=== PATIENT | male | born 1960 | race African-American/Black ===

== ENCOUNTER 2020-02-09 19:30 | Inpatient (IN) | payer MEDICAID ==
[~2020-02-09] VITALS: Ht 177.8 cm; Wt 80.5 kg
[2020-02-09] MEDS ORDERED: TYLENOL EXTRA500 MG ORAL (19:40)
[2020-02-09] MEDS ORDERED: VITAMIN B-1100 MG ORAL (19:42)
[2020-02-09] MEDS ORDERED: TRIUMEQ 600-501 EACH PO (19:42)
[2020-02-09] MEDS ORDERED: VITAMIN D3 COM1 EACH PO (19:42)
[2020-02-09] MEDS ORDERED: LISINOPRIL10 MG ORAL (19:42)
[2020-02-09] MEDS ORDERED: Omnipaque-300 100ml vial INJ PRN (20:00)
--- NOTE | 2020-02-09 20:13 | Emergency Room Report ---
History of Present Illness General Chief Complaint: Male Urogenital Problems Source: Patient Present Illness HPI Patient is a 59-year-old male who presents after increased left-sided testicular pain. Prior history of inguinal hernia. Had been having increased left-sided inguinal fullness. Had not been vomiting. Reportedly had been having some flatus. Prior history of HIV as well as traumatic injury to the extremities. He is currently at [facility]. Patient reportedly had negative coronavirus testing however roommate had tested positive at the facility. 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 COVID-19 Screening: Negative COVID-19 COVID-19 Testing Source: [facility] Patient History Past Medical History: see triage record Reviewed Nursing Documentation: PMH: Agreed; PSxH: Agreed Nursing Documentation-PMH Hx Hypertension: Yes Review of Systems All Other Systems: negative except mentioned in HPI Physical Exam Vital Signs Date Time Temp Pulse Resp B/P (MAP) Pulse Ox O2 Delivery O2 Flow Rate FiO2 02/09/20 19:33 97.9 83 16 132/70 (90) 97 Room Air Sp02 EP Interpretation: reviewed, normal General Appearance: normal inspection, well appearing, no apparent distress, alert, GCS 15 Head: atraumatic ENT: normal ENT inspection, hearing grossly normal, normal voice Neck: normal inspection, full range of motion, supple, no bony tend Respiratory: normal inspection, lungs clear, normal breath sounds, no respiratory distress, no retraction, no wheezing Cardiovascular #1: regular rate, rhythm, no edema Gastrointestinal: normal inspection, normal bowel sounds, non tender, soft, no guarding Genitourinary: no CVA tenderness, other - Large left inguinal defect with soft bowel Musculoskeletal: normal inspection, back normal, normal range of motion Neurologic: alert, responsive, speech normal, normal inspection Psychiatric: normal inspection, judgement/insight normal, mood/affect normal Medical Decision Making Diagnostic Impression: Primary Impression: Left inguinal hernia Additional Impressions: Common bile duct dilation Renal cyst Thickened small bowel ER Course Patient presented for Left testicular pain. Differential diagnosis include was not limited to contusion, Jose Luis's gangrene, cellulitis, incarcerated hernia among others. Because of complexity of patient's case laboratory tests and imaging studies were ordered. Patient was noted to have some prior history of left inguinal hernia. There does appear to be significant left-sided scrotal swelling. Fullness scrotal fullness with associated hernia. There is no evidence of induration or erythema. Patient has not been vomiting. CT imaging was ordered due to patient's hernia.Patient's CT imaging showed some indeterminate foci of attenuation in the liver, gallbladder is contracted, there appears to be wall thickening of the common bile duct that is indeterminate for malignancy or infection. Exophytic left renal cyst 7 cm there are segments of small bowel demonstrating at least mild wall thickening large left inguinal hernia with multiple loops of bowel as well as mesenteric vessels with no significant obstruction or evidence of strangulation. Patient was endorsed to Dr. Armas pending admission.Patient was discussed with covering physician for [facility] and patient will be admitted for further evaluation of common bile duct dilation as well as left inguinal hernia. Labs Test 02/09/20 20:10 White Blood Count 4.7 K/UL (4.8-10.8) Red Blood Count 3.82 M/UL (4.70-6.10) Hemoglobin 12.6 G/DL (14.2-18.0) Hematocrit 38.5 % (42.0-52.0) Mean Corpuscular Volume 101 FL (80-99) Mean Corpuscular Hemoglobin 32.9 PG (27.0-31.0) Mean Corpuscular Hemoglobin Concent 32.6 G/DL (32.0-36.0) Red Cell Distribution Width 13.4 % (11.6-14.8) Platelet Count 243 K/UL (150-450) Mean Platelet Volume 7.9 FL (6.5-10.1) Neutrophils (%) (Auto) 54.8 % (45.0-75.0) Lymphocytes (%) (Auto) 34.1 % (20.0-45.0) Monocytes (%) (Auto) 5.6 % (1.0-10.0) Eosinophils (%) (Auto) 4.0 % (0.0-3.0) Basophils (%) (Auto) 1.5 % (0.0-2.0) Prothrombin Time 11.2 SEC (9.30-11.50) Prothromb Time International Ratio 1.0 (0.9-1.1) Activated Partial Thromboplast Time 29 SEC (23-33) Sodium Level 140 MMOL/L (136-145) Potassium Level 4.1 MMOL/L (3.5-5.1) Chloride Level 102 MMOL/L (98-107) Carbon Dioxide Level 32 MMOL/L (21-32) Anion Gap 6 mmol/L (5-15) Blood Urea Nitrogen 18 mg/dL (7-18) Creatinine 1.3 MG/DL (0.55-1.30) Estimat Glomerular Filtration Rate > 60 mL/min (>60) Glucose Level 87 MG/DL (74-106) Calcium Level 9.2 MG/DL (8.5-10.1) Total Bilirubin 0.4 MG/DL (0.2-1.0) Aspartate Amino Transf (AST/SGOT) 14 U/L (15-37) Alanine Aminotransferase (ALT/SGPT) 17 U/L (12-78) Alkaline Phosphatase 98 U/L (46-116) Total Protein 7.8 G/DL (6.4-8.2) Albumin 3.7 G/DL (3.4-5.0) Globulin 4.1 g/dL Albumin/Globulin Ratio 0.9 (1.0-2.7) Lipase 89 U/L (73-393) Last Vital Signs Date Time Temp Pulse Resp B/P (MAP) Pulse Ox O2 Delivery O2 Flow Rate FiO2 02/09/20 19:33 97.9 83 16 132/70 (90) 97 Room Air Status: unchanged Disposition: ADMITTED INPATIENT Condition: Stable Tom Tapia MD Feb 09, 2020 20:13
[2020-02-09 20:17] VITALS: BP 132/70
[2020-02-09 20:48] LABS: ANION GAP 6 mmol/L (5-15); BLOOD UREA NITROGEN 18 mg/dL (7-18); CALCIUM 9.2 MG/DL (8.5-10.1); CARBON DIOXIDE 32 MMOL/L (21-32); CHLORIDE 102 MMOL/L (98-107); CREATININE 1.3 MG/DL (0.55-1.30); POTASSIUM 4.1 MMOL/L (3.5-5.1); SODIUM 140 MMOL/L (136-145)
[2020-02-09 20:49] LABS: BASOPHILS % (AUTO) 1.5 % (0.0-2.0); HEMATOCRIT 38.5 % (42.0-52.0); HEMOGLOBIN 12.6 G/DL (14.2-18.0); LYMPHOCYTES % (AUTO) 34.1 % (20.0-45.0); MEAN CORPUSCULAR VOLUME 101 FL (80-99); MONOCYTES % (AUTO) 5.6 % (1.0-10.0); NEUTROPHILS % (AUTO) 54.8 % (45.0-75.0); PLATELET COUNT 243 K/UL (150-450); RED BLOOD COUNT 3.82 M/UL (4.70-6.10); RED CELL DISTRIBUTION WIDTH 13.4 % (11.6-14.8); WHITE BLOOD COUNT 4.7 K/UL (4.8-10.8)
[2020-02-09 20:58] LABS: ALANINE AMINOTRANSFERASE 17 U/L (12-78); ALBUMIN 3.7 G/DL (3.4-5.0); ALBUMIN/GLOBULIN RATIO 0.9 (1.0-2.7); ALKALINE PHOSPHATASE 98 U/L (46-116); ASPARTATE AMINO TRANSFERASE 14 U/L (15-37); BILIRUBIN,TOTAL 0.4 MG/DL (0.2-1.0)
--- NOTE | 2020-02-09 21:40 | Diagnostic Imaging Report ---
EXAM: CT Abdomen and Pelvis With Intravenous Contrast CLINICAL HISTORY: ABD PAIN TECHNIQUE: Axial computed tomography images of the abdomen and pelvis with intravenous contrast. CTDI is 5 and 9 mGy and DLP is 284 and 151 mGy-cm. One or more of the following dose reduction techniques were used: automated exposure control, adjustment of the mA and/or kV according to patient size, use of iterative reconstruction technique. COMPARISON: No relevant prior studies available. FINDINGS: Artifacts: Motion degraded study. Lung bases: Unremarkable. No mass. No consolidation. ABDOMEN: Liver: Indeterminate at subcentimeter low attenuation foci in the liver parenchyma. Gallbladder and bile ducts: The gallbladder is contracted. Biliary ductal dilatation with the extrahepatic biliary tree measuring up to 7 mm. There appears to be wall thickening of the common bile duct that is indeterminate for malignancy or infection. No calcified stones. Pancreas: Unremarkable. No mass. No ductal dilation. Spleen: Unremarkable. No splenomegaly. Adrenals: Unremarkable. No mass. Kidneys and ureters: Very large partially exophytic anterior left renal cyst measuring up to 7.6 cm. No evidence of obstructive uropathy. Stomach and bowel: Negative for high-grade lower GI tract obstruction. There are segments of small bowel demonstrating at least a mild wall thickening. Negative for evidence of pneumatosis. There is a large left inguinal hernia extending into the scrotum containing multiple loops of bowel as well as mesenteric vessels. No significant obstruction secondary to the hernia. Currently no evidence of bowel strangulation. PELVIS: Appendix: No findings to suggest acute appendicitis. Bladder: Indeterminate moderate bladder wall thickening. Reproductive: Marked heterogeneous enlargement of the prostate gland indeterminate for malignancy and/or prostatitis. ABDOMEN and PELVIS: Intraperitoneal space: Unremarkable. No free air. No significant fluid collection. Bones/joints: No acute fracture. No dislocation. Soft tissues: See above. Vasculature: Unremarkable. No abdominal aortic aneurysm. Lymph nodes: Mild indeterminate retroperitoneal lymphadenopathy. Significant indeterminate bilateral inguinal lymphadenopathy. IMPRESSION: Biliary ductal dilatation with question of extrahepatic biliary tree wall thickening indeterminate for a distal obstructing lesion, neoplasm or cholangitis. Tiny nonspecific and indeterminate low attenuation foci in the liver parenchyma. Small bowel wall thickening is nonspecific but can be seen with infectious or inflammatory enteritis. Marked enlargement of the prostate gland that is significantly heterogeneous and indeterminate for malignancy and/or prostatitis. Nonspecific bladder wall thickening can be seen with infiltrative neoplastic, inflammatory or infectious etiologies. Large left inguinal hernia without evidence of bowel obstruction or strangulation. Indeterminate lymphadenopathy as above.
[2020-02-09 22:15] VITALS: BP 128/68
[2020-02-09] MEDS ORDERED: DiphenhydrAMINE 25mg Tab ORAL PRN (23:30)
[2020-02-09] MEDS ORDERED: Morphine Sulfate 4mg/ml Inj (IV USE ONLY) IVP PRN (23:30)
[2020-02-09] MEDS ORDERED: Miralax 17gm pkt ORAL PRN (23:30)
[2020-02-09] MEDS ORDERED: Milk of Magnesia 30ml Ud ORAL PRN (23:30)
[2020-02-09] MEDS ORDERED: Metoclopramide 10mg/2ml Inj IVP PRN (23:30)
[2020-02-09] MEDS ORDERED: Mylanta II UD 30ml ORAL PRN (23:30)
[2020-02-09] MEDS ORDERED: LORazepam Inj 2mg/ml 1ml IV PRN (23:30)
--- NOTE | 2020-02-09 23:31 | History & Physical ---
History and Physical History & Physicial 59 y/o HIV pos man who resides at a SNF ([facility]) presents to the ED with increasing L sided testicular pain, apparently reducible per ED physician, however CT A/P shows biliary duct dilatation and sb wall thickening, raising possibility of obstructive malignancy Biliary ductal dilatation with question of extrahepatic biliary tree wall thickening indeterminate for a distal obstructing lesion, neoplasm or cholangitis. Tiny nonspecific and indeterminate low attenuation foci in the liver parenchyma. Small bowel wall thickening is nonspecific but can be seen with infectious or inflammatory enteritis. Marked enlargement of the prostate gland that is significantly heterogeneous and indeterminate for malignancy and/or prostatitis. Nonspecific bladder wall thickening can be seen with infiltrative neoplastic, inflammatory or infectious etiologies. Large left inguinal hernia without evidence of bowel obstruction or strangulation. Indeterminate lymphadenopathy as above. Chart, labs, vitals reviewed and case d/w ED Physician. Will admit tonight for supportive care, NPO. Will also call Surgical (Cyndee) and GI (Cleo) consults. Pt is hemodynamically stable. Julio White MD Feb 09, 2020 23:31
[2020-02-10] VITALS: BP 135/85
[2020-02-10] MEDS: D5NS 1,000 ML IV SCH ×3 (01:24→20:27)
[2020-02-10] MEDS ORDERED: ACETAMINOPHEN325 M1 ORAL (03:27)
[2020-02-10 04:00] VITALS: BP 129/82
[2020-02-10] MEDS: Heparin 5000 units/ml inj SUBQ SCH ×3 (05:46→21:12)
[2020-02-10 07:28] LABS: BASOPHILS % (AUTO) 1.4 % (0.0-2.0); EOSINOPHILS % (AUTO) 4.9 % (0.0-3.0); HEMATOCRIT 35.8 % (42.0-52.0); HEMOGLOBIN 11.6 G/DL (14.2-18.0); LYMPHOCYTES % (AUTO) 48.3 % (20.0-45.0); MEAN CORPUSCULAR VOLUME 101 FL (80-99); MONOCYTES % (AUTO) 8.1 % (1.0-10.0); NEUTROPHILS % (AUTO) 37.3 % (45.0-75.0); PLATELET COUNT 191 K/UL (150-450); RED BLOOD COUNT 3.55 M/UL (4.70-6.10); RED CELL DISTRIBUTION WIDTH 12.5 % (11.6-14.8); WHITE BLOOD COUNT 3.9 K/UL (4.8-10.8)
[2020-02-10 07:55] LABS: ANION GAP 8 mmol/L (5-15); BLOOD UREA NITROGEN 14 mg/dL (7-18); CALCIUM 8.5 MG/DL (8.5-10.1); CARBON DIOXIDE 28 MMOL/L (21-32); CHLORIDE 103 MMOL/L (98-107); CREATININE 1.2 MG/DL (0.55-1.30); POTASSIUM 3.7 MMOL/L (3.5-5.1); SODIUM 139 MMOL/L (136-145)
[2020-02-10 08:05] VITALS: BP 122/71
[2020-02-10] MEDS: Thiamine 100mg tab ORAL SCH (08:34)
[2020-02-10] MEDS: Lisinopril 10mg tab ORAL SCH (08:34)
[2020-02-10] MEDS: Docusate 100mg cap ORAL SCH ×2 (08:34→21:05)
[2020-02-10] MEDS: Morphine Sulfate 2mg/ml Inj(IV/IM USE ONLY) IVP PRN ×2 (10:02→15:38)
--- NOTE | 2020-02-10 10:32 | History and Physical ---
History of Present Illness General Date patient seen: Feb 10, 2020 Reason for Hospitalization: Male Urogenital Problems Present Illness HPI Patient is a 59-year-old male SNF resident ([facility]) w/ MMP including Hx HIV on ART, HTN, L inguinal hernia who presented to the ED with left tisticular pain and increased left inguinal hernia fullness. Pt noted to have several concerning features on CT abd for possible malignancy. In the ED pt was found to be afebrile and HDS. Labs were unremarkable except for mild leukopenia and anemia. L inguinal hernia was reducible to some degree and non tender per ED. Pt has been stable overnight and this am. Awaiting evaluation by GI and G Surg consulted overnight. Allergies: Coded Allergies: No Known Allergies (Unverified , 02/09/20) COVID-19 Screening Contact w/high risk pt: Yes Recent Travel to affected area: No Experienced COVID-19 symptoms?: No Medication History Scheduled Lisinopril* (Lisinopril*), 10 MG ORAL DAILY, (Reported) Thiamine Hcl* (Vitamin B-1*), 100 MG ORAL DAILY, (Reported) Scheduled PRN Acetaminophen* (Acetaminophen 325MG Tablet*), 650 MG ORAL Q6H PRN for Mild Pain (Pain Scale 1-3), (Reported) Miscellaneous Medications Abacavir/Dolutegravir/Lamivudi (Triumeq 600-50-300 mg Tablet), 1 EACH PO, ( Reported) Mv-Mn/Iron/Fa/Herbal Cmplx#190 (Vitamin D3 Complete Caplet), 2 EACH PO, ( Reported) Discontinued Medications Acetaminophen* (Tylenol Extra Strength*), 500 MG ORAL Q6H PRN for Mild Pain/ Temp > 100.5, (Reported) Discontinued Reason: Prescription changed Patient History Healthcare decision maker Resuscitation status Advanced Directive on File Review of Systems ROS Narrative 12 pt ros neg except as above Physical Exam General Appearance: WD/WN, no apparent distress, alert HEENT: normocephalic, atraumatic, PERRL, EOMI, no JVD Neck: supple Respiratory/Chest: lungs clear, normal breath sounds, no respiratory distress, no accessory muscle use Cardiovascular/Chest: normal peripheral pulses, regular rhythm, no gallop/ murmur, no JVD Abdomen: normal bowel sounds, non tender, soft, no organomegaly Extremities: no edema, no cyanosis Neurologic: primary substance abuse counselor II-XII grossly normal, oriented x 3 Last 24 Hour Vital Signs Date Time Temp Pulse Resp B/P (MAP) Pulse Ox O2 Delivery O2 Flow Rate FiO2 02/10/20 08:42 Room Air 02/10/20 08:34 122/71 02/10/20 08:05 97.9 85 20 122/71 (88) 93 02/10/20 04:00 98.1 86 20 129/82 (98) 96 02/10/20 00:46 Room Air 02/10/20 00:10 98.0 82 18 124/72 100 02/10/20 00:00 98.9 82 20 135/85 (102) 96 02/09/20 22:15 98.6 78 16 128/68 97 Room Air 02/09/20 20:17 98.4 82 16 132/70 97 Room Air 02/09/20 19:33 97.9 83 16 132/70 (90) 97 Room Air Intake and Output 02/09/20 02/10/20 19:00 07:00 Intake Total 100 ml Balance 100 ml Intake IV Total 100 ml Laboratory Tests Test 02/09/20 20:10 02/10/20 04:10 White Blood Count 4.7 K/UL (4.8-10.8) L 3.9 K/UL (4.8-10.8) L Red Blood Count 3.82 M/UL (4.70-6.10) L 3.55 M/UL (4.70-6.10) L Hemoglobin 12.6 G/DL (14.2-18.0) L 11.6 G/DL (14.2-18.0) L Hematocrit 38.5 % (42.0-52.0) L 35.8 % (42.0-52.0) L Mean Corpuscular Volume 101 FL (80-99) H 101 FL (80-99) H Mean Corpuscular Hemoglobin 32.9 PG (27.0-31.0) H 32.8 PG (27.0-31.0) H Mean Corpuscular Hemoglobin Concent 32.6 G/DL (32.0-36.0) 32.5 G/DL (32.0-36.0) Red Cell Distribution Width 13.4 % (11.6-14.8) 12.5 % (11.6-14.8) Platelet Count 243 K/UL (150-450) 191 K/UL (150-450) Mean Platelet Volume 7.9 FL (6.5-10.1) 6.8 FL (6.5-10.1) Neutrophils (%) (Auto) 54.8 % (45.0-75.0) 37.3 % (45.0-75.0) L Lymphocytes (%) (Auto) 34.1 % (20.0-45.0) 48.3 % (20.0-45.0) H Monocytes (%) (Auto) 5.6 % (1.0-10.0) 8.1 % (1.0-10.0) Eosinophils (%) (Auto) 4.0 % (0.0-3.0) H 4.9 % (0.0-3.0) H Basophils (%) (Auto) 1.5 % (0.0-2.0) 1.4 % (0.0-2.0) Prothrombin Time 11.2 SEC (9.30-11.50) Prothromb Time International Ratio 1.0 (0.9-1.1) Activated Partial Thromboplast Time 29 SEC (23-33) Sodium Level 140 MMOL/L (136-145) 139 MMOL/L (136-145) Potassium Level 4.1 MMOL/L (3.5-5.1) 3.7 MMOL/L (3.5-5.1) Chloride Level 102 MMOL/L (98-107) 103 MMOL/L (98-107) Carbon Dioxide Level 32 MMOL/L (21-32) 28 MMOL/L (21-32) Anion Gap 6 mmol/L (5-15) 8 mmol/L (5-15) Blood Urea Nitrogen 18 mg/dL (7-18) 14 mg/dL (7-18) Creatinine 1.3 MG/DL (0.55-1.30) 1.2 MG/DL (0.55-1.30) Estimat Glomerular Filtration Rate > 60 mL/min (>60) > 60 mL/min (>60) Glucose Level 87 MG/DL (74-106) 79 MG/DL (74-106) Calcium Level 9.2 MG/DL (8.5-10.1) 8.5 MG/DL (8.5-10.1) Total Bilirubin 0.4 MG/DL (0.2-1.0) Aspartate Amino Transf (AST/SGOT) 14 U/L (15-37) L Alanine Aminotransferase (ALT/SGPT) 17 U/L (12-78) Alkaline Phosphatase 98 U/L (46-116) Total Protein 7.8 G/DL (6.4-8.2) Albumin 3.7 G/DL (3.4-5.0) Globulin 4.1 g/dL Albumin/Globulin Ratio 0.9 (1.0-2.7) L Lipase 89 U/L (73-393) Magnesium Level 1.8 MG/DL (1.8-2.4) Height (Feet): 5 Height (Inches): 10.00 Weight (Pounds): 83 Medications Current Medications Medications (Trade) Dose Ordered Sig/Jimmy Route PRN Reason Start Time Stop Time Status Last Admin Dose Admin Acetaminophen (Tylenol) 650 mg Q4H PRN ORAL Mild Pain (Pain Scale 1-3) 02/09/20 23:30 03/10/20 23:29 Acetaminophen (Tylenol) 650 mg Q4H PRN ORAL Temp >100.5 02/09/20 23:30 03/10/20 23:29 Al Hydroxide/Mg Hydroxide (Mylanta II) 30 ml Q6H PRN ORAL dyspepsia 02/09/20 23:30 03/10/20 23:29 Bisacodyl (Dulcolax) 10 mg HSPRN PRN RECTAL Constipation 02/09/20 23:30 05/09/20 23:29 Dextrose (Dextrose 50%) 25 ml Q30M PRN IV Hypoglycemia 02/09/20 23:30 05/09/20 23:29 Dextrose (Dextrose 50%) 50 ml Q30M PRN IV Hypoglycemia 02/09/20 23:30 05/09/20 23:29 Dextrose/Sodium Chloride 1,000 ml @ 100 mls/hr Q10H IV 02/10/20 00:24 03/11/20 00:23 02/10/20 10:01 Diphenhydramine HCl (Benadryl) 25 mg Q6H PRN ORAL Itching/Pruritis 02/09/20 23:30 03/10/20 23:29 Docusate Sodium (Colace) 100 mg EVERY 12 HOURS ORAL 02/10/20 09:00 03/11/20 08:59 02/10/20 08:34 Heparin Sodium (Porcine) (Heparin 5000 units/ml) 5,000 units EVERY 8 HOURS SUBQ 02/10/20 06:00 03/26/20 05:59 02/10/20 05:46 Iohexol (OMNIPAQUE-300 100ml) 100 ml NOW PRN INJ Radiology Procedure 02/09/20 20:00 02/11/20 19:53 Lisinopril (ZestriL) 10 mg DAILY ORAL 02/10/20 09:00 03/11/20 08:59 02/10/20 08:34 Lorazepam (Ativan 2mg/ml 1ml) 0.5 mg Q4H PRN IV For Anxiety 02/09/20 23:30 02/16/20 23:29 Magnesium Hydroxide (Mom) 30 ml HSPRN PRN ORAL Constipation 02/09/20 23:30 03/10/20 23:29 Metoclopramide HCl (Reglan) 10 mg Q6H PRN IVP Nausea & Vomiting 02/09/20 23:30 03/10/20 23:29 Morphine Sulfate (Morphine Sulfate) 2 mg Q4H PRN IVP Moderate Pain (Pain Scale 4-6) 02/09/20 23:30 02/16/20 23:29 02/10/20 10:02 Morphine Sulfate (Morphine Sulfate) 4 mg Q4H PRN IVP Severe Pain (Pain Scale 7-10) 02/09/20 23:30 02/16/20 23:29 Ondansetron HCl (Zofran) 4 mg Q6H PRN IVP Nausea & Vomiting 02/09/20 23:30 03/10/20 23:29 Polyethylene Glycol (Miralax) 17 gm HSPRN PRN ORAL Constipation 02/09/20 23:30 03/10/20 23:29 Temazepam (Restoril) 15 mg HSPRN PRN ORAL Insomnia 02/09/20 23:30 02/16/20 23:29 Thiamine HCl (Vitamin B1) 100 mg DAILY ORAL 02/10/20 09:00 03/11/20 08:59 02/10/20 08:[address] abd/p 02/08: IMPRESSION: Biliary ductal dilatation with question of extrahepatic biliary tree wall thickening indeterminate for a distal obstructing lesion, neoplasm or cholangitis. Tiny nonspecific and indeterminate low attenuation foci in the liver parenchyma. Small bowel wall thickening is nonspecific but can be seen with infectious or inflammatory enteritis. Marked enlargement of the prostate gland that is significantly heterogeneous and indeterminate for malignancy and/or prostatitis. Nonspecific bladder wall thickening can be seen with infiltrative neoplastic, inflammatory or infectious etiologies. Large left inguinal hernia without evidence of bowel obstruction or strangulation. Indeterminate lymphadenopathy as above. Assessment/Plan Assessment/Plan: Patient is a 59-year-old male SNF resident ([facility]) w/ MMP including Hx HIV on ART, HTN, L inguinal hernia who presented to the ED with left tisticular pain and increased left inguinal hernia fullness. Pt noted to have several concerning features on CT abd for possible malignancy. #Left Testicular pain #Extra hepatic bili duct dilation #Enlarged, heterogeneic Prostate #Bladder wall thickening #Small bowel wall thickening - admit to in pt - hold off on abx for now as pt seems non toxic - General surgery consult - GI consult - Heme onc consult, Dr Jimenez - PSA, CEA, CA 19-9 - Start 2g Na diet - Pain control - Supportive care #Left inguinal hernia - general surgery consult #HIV on art #HTN - ID consult for assessment and mgt of HIV regimen, Dr Kim - send CD4 & VL FENPPX DVTPPX: scds GI PPX: Fluids: Diet: 2g na Lines: PT/OT: Code status: full Dispo: SNF ([facility]) Reason for Continued Hospitalization: Workup and mgt of possible malignancy 70 minutes spent on this encounter. Discussed with RN at bedside and consultants named above. 35 spent on counseling and care coordination. Time of note may not reflect time patient was seen. Steven Aj MD Feb 10, 2020 10:32
[2020-02-10 12:00] VITALS: BP_SYST 130; BP_SYST 158; BP_DIAS 73; BP_DIAS 86
--- NOTE | 2020-02-10 12:26 | Infectious Diseases Prog Note ---
Assessment/Plan Assessment/Plan Full consult dictated: A) 1) hiv 2) ? cd4/viral load 3) hernia 4) dilated biliary ducts P) 1) Triumeq - individual components available per pharmacy 2) check cd4/viral load 3) continue mgt per primary and consultants 4) thank you Subjective Allergies: Coded Allergies: No Known Allergies (Unverified , 02/09/20) Objective Vital Signs Last 24 Hour Vital Signs Date Time Temp Pulse Resp B/P (MAP) Pulse Ox O2 Delivery O2 Flow Rate FiO2 02/10/20 08:42 Room Air 02/10/20 08:34 122/71 02/10/20 08:05 97.9 85 20 122/71 (88) 93 02/10/20 04:00 98.1 86 20 129/82 (98) 96 02/10/20 00:46 Room Air 02/10/20 00:10 98.0 82 18 124/72 100 02/10/20 00:00 98.9 82 20 135/85 (102) 96 02/09/20 22:15 98.6 78 16 128/68 97 Room Air 02/09/20 20:17 98.4 82 16 132/70 97 Room Air 02/09/20 19:33 97.9 83 16 132/70 (90) 97 Room Air Height (Feet): 5 Height (Inches): 10.00 Weight (Pounds): 83 Laboratory Tests Test 02/09/20 20:10 02/10/20 04:10 White Blood Count 4.7 K/UL (4.8-10.8) L 3.9 K/UL (4.8-10.8) L Red Blood Count 3.82 M/UL (4.70-6.10) L 3.55 M/UL (4.70-6.10) L Hemoglobin 12.6 G/DL (14.2-18.0) L 11.6 G/DL (14.2-18.0) L Hematocrit 38.5 % (42.0-52.0) L 35.8 % (42.0-52.0) L Mean Corpuscular Volume 101 FL (80-99) H 101 FL (80-99) H Mean Corpuscular Hemoglobin 32.9 PG (27.0-31.0) H 32.8 PG (27.0-31.0) H Mean Corpuscular Hemoglobin Concent 32.6 G/DL (32.0-36.0) 32.5 G/DL (32.0-36.0) Red Cell Distribution Width 13.4 % (11.6-14.8) 12.5 % (11.6-14.8) Platelet Count 243 K/UL (150-450) 191 K/UL (150-450) Mean Platelet Volume 7.9 FL (6.5-10.1) 6.8 FL (6.5-10.1) Neutrophils (%) (Auto) 54.8 % (45.0-75.0) 37.3 % (45.0-75.0) L Lymphocytes (%) (Auto) 34.1 % (20.0-45.0) 48.3 % (20.0-45.0) H Monocytes (%) (Auto) 5.6 % (1.0-10.0) 8.1 % (1.0-10.0) Eosinophils (%) (Auto) 4.0 % (0.0-3.0) H 4.9 % (0.0-3.0) H Basophils (%) (Auto) 1.5 % (0.0-2.0) 1.4 % (0.0-2.0) Prothrombin Time 11.2 SEC (9.30-11.50) Prothromb Time International Ratio 1.0 (0.9-1.1) Activated Partial Thromboplast Time 29 SEC (23-33) Sodium Level 140 MMOL/L (136-145) 139 MMOL/L (136-145) Potassium Level 4.1 MMOL/L (3.5-5.1) 3.7 MMOL/L (3.5-5.1) Chloride Level 102 MMOL/L (98-107) 103 MMOL/L (98-107) Carbon Dioxide Level 32 MMOL/L (21-32) 28 MMOL/L (21-32) Anion Gap 6 mmol/L (5-15) 8 mmol/L (5-15) Blood Urea Nitrogen 18 mg/dL (7-18) 14 mg/dL (7-18) Creatinine 1.3 MG/DL (0.55-1.30) 1.2 MG/DL (0.55-1.30) Estimat Glomerular Filtration Rate > 60 mL/min (>60) > 60 mL/min (>60) Glucose Level 87 MG/DL (74-106) 79 MG/DL (74-106) Calcium Level 9.2 MG/DL (8.5-10.1) 8.5 MG/DL (8.5-10.1) Total Bilirubin 0.4 MG/DL (0.2-1.0) Aspartate Amino Transf (AST/SGOT) 14 U/L (15-37) L Alanine Aminotransferase (ALT/SGPT) 17 U/L (12-78) Alkaline Phosphatase 98 U/L (46-116) Total Protein 7.8 G/DL (6.4-8.2) Albumin 3.7 G/DL (3.4-5.0) Globulin 4.1 g/dL Albumin/Globulin Ratio 0.9 (1.0-2.7) L Lipase 89 U/L (73-393) Magnesium Level 1.8 MG/DL (1.8-2.4) Current Medications Medications (Trade) Dose Ordered Sig/Jimmy Route PRN Reason Start Time Stop Time Status Last Admin Dose Admin Acetaminophen (Tylenol) 650 mg Q4H PRN ORAL Mild Pain (Pain Scale 1-3) 02/09/20 23:30 03/10/20 23:29 Acetaminophen (Tylenol) 650 mg Q4H PRN ORAL Temp >100.5 02/09/20 23:30 03/10/20 23:29 Al Hydroxide/Mg Hydroxide (Mylanta II) 30 ml Q6H PRN ORAL dyspepsia 02/09/20 23:30 03/10/20 23:29 Bisacodyl (Dulcolax) 10 mg HSPRN PRN RECTAL Constipation 02/09/20 23:30 05/09/20 23:29 Dextrose (Dextrose 50%) 25 ml Q30M PRN IV Hypoglycemia 02/09/20 23:30 05/09/20 23:29 Dextrose (Dextrose 50%) 50 ml Q30M PRN IV Hypoglycemia 02/09/20 23:30 05/09/20 23:29 Dextrose/Sodium Chloride 1,000 ml @ 100 mls/hr Q10H IV 02/10/20 00:24 03/11/20 00:23 02/10/20 10:01 Diphenhydramine HCl (Benadryl) 25 mg Q6H PRN ORAL Itching/Pruritis 02/09/20 23:30 03/10/20 23:29 Docusate Sodium (Colace) 100 mg EVERY 12 HOURS ORAL 02/10/20 09:00 03/11/20 08:59 02/10/20 08:34 Heparin Sodium (Porcine) (Heparin 5000 units/ml) 5,000 units EVERY 8 HOURS SUBQ 02/10/20 06:00 03/26/20 05:59 02/10/20 05:46 Iohexol (OMNIPAQUE-300 100ml) 100 ml NOW PRN INJ Radiology Procedure 02/09/20 20:00 02/11/20 19:53 Lisinopril (ZestriL) 10 mg DAILY ORAL 02/10/20 09:00 03/11/20 08:59 02/10/20 08:34 Lorazepam (Ativan 2mg/ml 1ml) 0.5 mg Q4H PRN IV For Anxiety 02/09/20 23:30 02/16/20 23:29 Magnesium Hydroxide (Mom) 30 ml HSPRN PRN ORAL Constipation 02/09/20 23:30 03/10/20 23:29 Metoclopramide HCl (Reglan) 10 mg Q6H PRN IVP Nausea & Vomiting 02/09/20 23:30 03/10/20 23:29 Morphine Sulfate (Morphine Sulfate) 2 mg Q4H PRN IVP Moderate Pain (Pain Scale 4-6) 02/09/20 23:30 02/16/20 23:29 02/10/20 10:02 Morphine Sulfate (Morphine Sulfate) 4 mg Q4H PRN IVP Severe Pain (Pain Scale 7-10) 02/09/20 23:30 02/16/20 23:29 Ondansetron HCl (Zofran) 4 mg Q6H PRN IVP Nausea & Vomiting 02/09/20 23:30 03/10/20 23:29 Polyethylene Glycol (Miralax) 17 gm HSPRN PRN ORAL Constipation 02/09/20 23:30 03/10/20 23:29 Temazepam (Restoril) 15 mg HSPRN PRN ORAL Insomnia 02/09/20 23:30 02/16/20 23:29 Thiamine HCl (Vitamin B1) 100 mg DAILY ORAL 02/10/20 09:00 03/11/20 08:59 02/10/20 08:34 Mindy Sanchez MD Feb 10, 2020 12:26
[2020-02-10] MEDS: Dolutegravir Sodium 50mg tab ORAL SCH (15:33)
[2020-02-10 15:43] VITALS: BP 124/89
--- NOTE | 2020-02-10 16:42 | Consultation ---
History of Present Illness General Date patient seen: Feb 10, 2020 Reason for Hospitalization: Male Urogenital Problems Present Illness HPI This is a pleasant 59-year-old male with multi-medical comorbidities including HIV on medication who presented [facility] complaining of worsening left-sided testicular groin pain. Patient states known history of hernia for significant time but cannot recall how many years but states over the past few days become larger and uncomfortable on the left side. No nausea vomiting fever chills. Passing flatus. Having bowel movements. Has considered repair of the hernia before but felt it was small and did not need repair but now is getting better is considering repair. Imaging reviewed. Surgery called to evaluate and assist with care. Patient seen, patient evaluated, chart reviewed Allergies: Coded Allergies: No Known Allergies (Unverified , 02/09/20) COVID-19 Screening Contact w/high risk pt: Yes Recent Travel to affected area: No Experienced COVID-19 symptoms?: No Medication History Scheduled Lisinopril* (Lisinopril*), 10 MG ORAL DAILY, (Reported) Thiamine Hcl* (Vitamin B-1*), 100 MG ORAL DAILY, (Reported) Scheduled PRN Acetaminophen* (Acetaminophen 325MG Tablet*), 650 MG ORAL Q6H PRN for Mild Pain (Pain Scale 1-3), (Reported) Miscellaneous Medications Abacavir/Dolutegravir/Lamivudi (Triumeq 600-50-300 mg Tablet), 1 EACH PO, ( Reported) Mv-Mn/Iron/Fa/Herbal Cmplx#190 (Vitamin D3 Complete Caplet), 2 EACH PO, ( Reported) Discontinued Medications Acetaminophen* (Tylenol Extra Strength*), 500 MG ORAL Q6H PRN for Mild Pain/ Temp > 100.5, (Reported) Discontinued Reason: Prescription changed Patient History History Provided By: Patient, Medical Record, PMD Healthcare decision maker Resuscitation status Advanced Directive on File Past Medical/Surgical History Past Medical/Surgical History: (1) Renal cyst (2) Left inguinal hernia (3) Thickened small bowel (4) Common bile duct dilation Review of Systems Review of Symptoms General ROS: no weight loss or fever Psychological ROS: no depression or mood changes, no memory loss Ophthalmic ROS: no visual changes or eye irritation ENT ROS: no nasal congestion, hearing loss, dizziness Allergy and Immunology ROS: no allergic symptoms or urticaria Hematological and Lymphatic ROS: no swollen glands, unusual bleeding or bruising Endocrine ROS: no polyuria, polydipsia, weight changes, temperature intolerance Respiratory ROS: no cough, shortness of breath, or wheezing Cardiovascular ROS: no chest pain or dyspnea on exertion Gastrointestinal ROS: denies abdominal pain, bright red blood in stool. Musculoskeletal ROS: no myalgias or arthralgias Neurological ROS: no TIA or stroke symptoms Dermatological ROS: no new or changing skin lesions, rashes or pruritis Physical Exam Physical Exam General appearance: alert, cooperative, no distress, appears stated age Head: Normocephalic, without obvious abnormality, atraumatic Eyes: conjunctivae/corneas clear. PERRL, EOM's intact. Fundi benign Throat: Lips, mucosa, and tongue normal. Teeth and gums normal Neck: supple, symmetrical, trachea midline, no adenopathy, thyroid: not enlarged, symmetric, no tenderness/mass/nodules, no carotid bruit and no JVD Lungs: clear to auscultation bilaterally Heart: regular rate and rhythm, S1, S2 normal, no murmur, click, rub or gallop Abdomen: soft, non-tender. Bowel sounds normal. No masses, no organomegaly reducible scrotal left inguinal hernia Extremities: extremities normal, atraumatic, no cyanosis or edema Pulses: 2+ and symmetric Skin: Skin color, texture, turgor normal. No rashes or lesions Neurologic: Grossly normal Last 24 Hour Vital Signs Date Time Temp Pulse Resp B/P (MAP) Pulse Ox O2 Delivery O2 Flow Rate FiO2 02/10/20 15:43 97.5 85 20 124/89 (101) 98 02/10/20 12:00 98.8 81 20 130/86 (101) 96 02/10/20 08:42 Room Air 02/10/20 08:34 122/71 02/10/20 08:05 97.9 85 20 122/71 (88) 93 02/10/20 04:00 98.1 86 20 129/82 (98) 96 02/10/20 00:46 Room Air 02/10/20 00:10 98.0 82 18 124/72 100 02/10/20 00:00 98.9 82 20 135/85 (102) 96 02/09/20 22:15 98.6 78 16 128/68 97 Room Air 02/09/20 20:17 98.4 82 16 132/70 97 Room Air 02/09/20 19:33 97.9 83 16 132/70 (90) 97 Room Air Intake and Output 02/09/20 02/10/20 19:00 07:00 Intake Total 100 ml Balance 100 ml IV Total 100 ml Laboratory Tests Test 02/09/20 20:10 02/10/20 04:10 02/10/20 13:49 White Blood Count 4.7 K/UL (4.8-10.8) L 3.9 K/UL (4.8-10.8) L Pending Red Blood Count 3.82 M/UL (4.70-6.10) L 3.55 M/UL (4.70-6.10) L Hemoglobin 12.6 G/DL (14.2-18.0) L 11.6 G/DL (14.2-18.0) L Hematocrit 38.5 % (42.0-52.0) L 35.8 % (42.0-52.0) L Mean Corpuscular Volume 101 FL (80-99) H 101 FL (80-99) H Mean Corpuscular Hemoglobin 32.9 PG (27.0-31.0) H 32.8 PG (27.0-31.0) H Mean Corpuscular Hemoglobin Concent 32.6 G/DL (32.0-36.0) 32.5 G/DL (32.0-36.0) Red Cell Distribution Width 13.4 % (11.6-14.8) 12.5 % (11.6-14.8) Platelet Count 243 K/UL (150-450) 191 K/UL (150-450) Mean Platelet Volume 7.9 FL (6.5-10.1) 6.8 FL (6.5-10.1) Neutrophils (%) (Auto) 54.8 % (45.0-75.0) 37.3 % (45.0-75.0) L Lymphocytes (%) (Auto) 34.1 % (20.0-45.0) 48.3 % (20.0-45.0) H Monocytes (%) (Auto) 5.6 % (1.0-10.0) 8.1 % (1.0-10.0) Eosinophils (%) (Auto) 4.0 % (0.0-3.0) H 4.9 % (0.0-3.0) H Basophils (%) (Auto) 1.5 % (0.0-2.0) 1.4 % (0.0-2.0) Prothrombin Time 11.2 SEC (9.30-11.50) Prothromb Time International Ratio 1.0 (0.9-1.1) Activated Partial Thromboplast Time 29 SEC (23-33) Sodium Level 140 MMOL/L (136-145) 139 MMOL/L (136-145) Potassium Level 4.1 MMOL/L (3.5-5.1) 3.7 MMOL/L (3.5-5.1) Chloride Level 102 MMOL/L (98-107) 103 MMOL/L (98-107) Carbon Dioxide Level 32 MMOL/L (21-32) 28 MMOL/L (21-32) Anion Gap 6 mmol/L (5-15) 8 mmol/L (5-15) Blood Urea Nitrogen 18 mg/dL (7-18) 14 mg/dL (7-18) Creatinine 1.3 MG/DL (0.55-1.30) 1.2 MG/DL (0.55-1.30) Estimat Glomerular Filtration Rate > 60 mL/min (>60) > 60 mL/min (>60) Glucose Level 87 MG/DL (74-106) 79 MG/DL (74-106) Calcium Level 9.2 MG/DL (8.5-10.1) 8.5 MG/DL (8.5-10.1) Total Bilirubin 0.4 MG/DL (0.2-1.0) Aspartate Amino Transf (AST/SGOT) 14 U/L (15-37) L Alanine Aminotransferase (ALT/SGPT) 17 U/L (12-78) Alkaline Phosphatase 98 U/L (46-116) Total Protein 7.8 G/DL (6.4-8.2) Albumin 3.7 G/DL (3.4-5.0) Globulin 4.1 g/dL Albumin/Globulin Ratio 0.9 (1.0-2.7) L Lipase 89 U/L (73-393) Magnesium Level 1.8 MG/DL (1.8-2.4) Lymphocytes Pending Carcinoembryonic Antigen Pending CA 19-9 Antigen Pending Prostate Specific Antigen 8.23 ng/mL (0.13-4.0) H Free Prostate Specific Antigen Pending Percent Free Prostate Specific Ag Pending Prostate Specific Antigen Total Pending Percent CD3 Cells Pending Absolute CD3 Count Pending Percent CD4 Cells Pending Absolute CD4 Count Pending T-Lymphocyte CD4/CD8 Ratio Pending Percent CD8 Cells Pending Absolute CD8 Count Pending Rapid Plasma Reagin Pending HIV-1 RNA (PCR) log10 Value Pending HIV-1 RNA Ultraquantitative (PCR) Pending Height (Feet): 5 Height (Inches): 10.00 Weight (Pounds): 83 Medications Current Medications Medications (Trade) Dose Ordered Sig/Jimmy Route PRN Reason Start Time Stop Time Status Last Admin Dose Admin Abacavir Sulfate (Ziagen) 600 mg DAILY ORAL 02/10/20 15:00 03/11/20 14:59 02/10/20 15:33 Acetaminophen (Tylenol) 650 mg Q4H PRN ORAL Mild Pain (Pain Scale 1-3) 02/09/20 23:30 03/10/20 23:29 Acetaminophen (Tylenol) 650 mg Q4H PRN ORAL Temp >100.5 02/09/20 23:30 03/10/20 23:29 Al Hydroxide/Mg Hydroxide (Mylanta II) 30 ml Q6H PRN ORAL dyspepsia 02/09/20 23:30 03/10/20 23:29 Bisacodyl (Dulcolax) 10 mg HSPRN PRN RECTAL Constipation 02/09/20 23:30 05/09/20 23:29 Dextrose (Dextrose 50%) 25 ml Q30M PRN IV Hypoglycemia 02/09/20 23:30 05/09/20 23:29 Dextrose (Dextrose 50%) 50 ml Q30M PRN IV Hypoglycemia 02/09/20 23:30 05/09/20 23:29 Dextrose/Sodium Chloride 1,000 ml @ 100 mls/hr Q10H IV 02/10/20 00:24 03/11/20 00:23 02/10/20 10:01 Diphenhydramine HCl (Benadryl) 25 mg Q6H PRN ORAL Itching/Pruritis 02/09/20 23:30 03/10/20 23:29 Docusate Sodium (Colace) 100 mg EVERY 12 HOURS ORAL 02/10/20 09:00 03/11/20 08:59 02/10/20 08:34 Dolutegravir Sodium (Tivicay) 50 mg DAILY ORAL 02/10/20 15:00 05/10/20 14:59 02/10/20 15:33 Heparin Sodium (Porcine) (Heparin 5000 units/ml) 5,000 units EVERY 8 HOURS SUBQ 02/10/20 06:00 03/26/20 05:59 02/10/20 13:29 Iohexol (OMNIPAQUE-300 100ml) 100 ml NOW PRN INJ Radiology Procedure 02/09/20 20:00 02/11/20 19:53 Lamivudine (Epivir) 300 mg DAILY ORAL 02/10/20 15:00 03/11/20 14:59 02/10/20 15:33 Lisinopril (ZestriL) 10 mg DAILY ORAL 02/10/20 09:00 03/11/20 08:59 02/10/20 08:34 Lorazepam (Ativan 2mg/ml 1ml) 0.5 mg Q4H PRN IV For Anxiety 02/09/20 23:30 02/16/20 23:29 Magnesium Hydroxide (Mom) 30 ml HSPRN PRN ORAL Constipation 02/09/20 23:30 03/10/20 23:29 Metoclopramide HCl (Reglan) 10 mg Q6H PRN IVP Nausea & Vomiting 02/09/20 23:30 03/10/20 23:29 Morphine Sulfate (Morphine Sulfate) 2 mg Q4H PRN IVP Moderate Pain (Pain Scale 4-6) 02/09/20 23:30 02/16/20 23:29 02/10/20 15:38 Morphine Sulfate (Morphine Sulfate) 4 mg Q4H PRN IVP Severe Pain (Pain Scale 7-10) 02/09/20 23:30 02/16/20 23:29 Ondansetron HCl (Zofran) 4 mg Q6H PRN IVP Nausea & Vomiting 02/09/20 23:30 03/10/20 23:29 Polyethylene Glycol (Miralax) 17 gm HSPRN PRN ORAL Constipation 02/09/20 23:30 03/10/20 23:29 Temazepam (Restoril) 15 mg HSPRN PRN ORAL Insomnia 02/09/20 23:30 02/16/20 23:29 Thiamine HCl (Vitamin B1) 100 mg DAILY ORAL 02/10/20 09:00 03/11/20 08:59 02/10/20 08:34 Assessment/Plan Problem List: (1) Renal cyst ICD Codes: N28.1 - Cyst of kidney, acquired SNOMED: 917542988 (2) Left inguinal hernia Assessment & Plan: Patient with a large reducible scrotal left inguinal hernia. No signs or symptoms of obstructive symptoms. Not incarcerated not strangulated by any means I was able to easily reduce the hernia at the bedside without complication. Identified findings with the patient discussed at bedside. I strongly recommend patient follow-up immediately upon outpatient with his PCP followed by surgeon within his network for considerations of elective left inguinal hernia repair as it currently still reducible non-complicated. I sized him that there is a potential given the size of this thing will become more symptomatic larger or more complicated in the future and the sooner he gets repaired the better. He expressed understanding and says now that it is bigger he will seek repair. ABDOMEN: Liver: Indeterminate at subcentimeter low attenuation foci in the liver parenchyma. Gallbladder and bile ducts: The gallbladder is contracted. Biliary ductal dilatation with the extrahepatic biliary tree measuring up to 7 mm. There appears to be wall thickening of the common bile duct that is indeterminate for malignancy or infection. No calcified stones. Pancreas: Unremarkable. No mass. No ductal dilation. Spleen: Unremarkable. No splenomegaly. Adrenals: Unremarkable. No mass. Kidneys and ureters: Very large partially exophytic anterior left renal cyst measuring up to 7.6 cm. No evidence of obstructive uropathy. Stomach and bowel: Negative for high-grade lower GI tract obstruction. There are segments of small bowel demonstrating at least a mild wall thickening. Negative for evidence of pneumatosis. There is a large left inguinal hernia extending into the scrotum containing multiple loops of bowel as well as mesenteric vessels. No significant obstruction secondary to the hernia. Currently no evidence of bowel strangulation. PELVIS: Appendix: No findings to suggest acute appendicitis. Bladder: Indeterminate moderate bladder wall thickening. Reproductive: Marked heterogeneous enlargement of the prostate gland indeterminate for malignancy and/or prostatitis. ABDOMEN and PELVIS: Intraperitoneal space: Unremarkable. No free air. No significant fluid collection. Bones/joints: No acute fracture. No dislocation. Soft tissues: See above. Vasculature: Unremarkable. No abdominal aortic aneurysm. Lymph nodes: Mild indeterminate retroperitoneal lymphadenopathy. Significant indeterminate bilateral inguinal lymphadenopathy. IMPRESSION: Biliary ductal dilatation with question of extrahepatic biliary tree wall thickening indeterminate for a distal obstructing lesion, neoplasm or cholangitis. Tiny nonspecific and indeterminate low attenuation foci in the liver parenchyma. Small bowel wall thickening is nonspecific but can be seen with infectious or inflammatory enteritis. Marked enlargement of the prostate gland that is significantly heterogeneous and indeterminate for malignancy and/or prostatitis. Nonspecific bladder wall thickening can be seen with infiltrative neoplastic, inflammatory or infectious etiologies. Large left inguinal hernia without evidence of bowel obstruction or strangulation. Indeterminate lymphadenopathy as above. ICD Codes: K40.90 - Unilateral inguinal hernia, without obstruction or gangrene , not specified as recurrent SNOMED: 943827852 (3) Thickened small bowel ICD Codes: K63.9 - Disease of intestine, unspecified SNOMED: 172442005 (4) Common bile duct dilation Assessment & Plan: discussed with GI appreciate input labs noted imaging reviewed ICD Codes: K83.8 - Other specified diseases of biliary tract SNOMED: 539130756 Adan Cotter Feb 10, 2020 16:42
--- NOTE | 2020-02-10 16:54 | General Progress Note ---
Assessment/Plan Assessment/Plan: Assessment - (L) inguinal hernia - borderline biliary dilation / thickening with normal LFT, ? significance - ill defined small bowel changes without associated symptoms, ? significance - enlarged prostate with elevated PSA Recommendations - check MRCP of biliary tree - check MRE of small bowel - general surgery eval of inguinal hernia - eventual / outpatient colonoscopy (has not had one) - check stool OB Thank you Jojo Hunter MD Subjective Allergies: Coded Allergies: No Known Allergies (Unverified , 02/09/20) Objective Last 24 Hour Vital Signs Date Time Temp Pulse Resp B/P (MAP) Pulse Ox O2 Delivery O2 Flow Rate FiO2 02/10/20 15:43 97.5 85 20 124/89 (101) 98 02/10/20 12:00 98.8 81 20 130/86 (101) 96 02/10/20 08:42 Room Air 02/10/20 08:34 122/71 02/10/20 08:05 97.9 85 20 122/71 (88) 93 02/10/20 04:00 98.1 86 20 129/82 (98) 96 02/10/20 00:46 Room Air 02/10/20 00:10 98.0 82 18 124/72 100 02/10/20 00:00 98.9 82 20 135/85 (102) 96 02/09/20 22:15 98.6 78 16 128/68 97 Room Air 02/09/20 20:17 98.4 82 16 132/70 97 Room Air 02/09/20 19:33 97.9 83 16 132/70 (90) 97 Room Air Intake and Output 02/09/20 02/10/20 19:00 07:00 Intake Total 100 ml Balance 100 ml IV Total 100 ml Laboratory Tests 02/09/20 20:10: White Blood Count 4.7L, Red Blood Count 3.82L, Hemoglobin 12.6L, Hematocrit 38.5L, Mean Corpuscular Volume 101H, Mean Corpuscular Hemoglobin 32.9H, Mean Corpuscular Hemoglobin Concent 32.6, Red Cell Distribution Width 13.4, Platelet Count 243, Mean Platelet Volume 7.9, Neutrophils (%) (Auto) 54.8, Lymphocytes (% ) (Auto) 34.1, Monocytes (%) (Auto) 5.6, Eosinophils (%) (Auto) 4.0H, Basophils (%) (Auto) 1.5, Prothrombin Time 11.2, Prothromb Time International Ratio 1.0, Activated Partial Thromboplast Time 29, Sodium Level 140, Potassium Level 4.1, Chloride Level 102, Carbon Dioxide Level 32, Anion Gap 6, Blood Urea Nitrogen 18 , Creatinine 1.3, Estimat Glomerular Filtration Rate > 60, Glucose Level 87, Calcium Level 9.2, Total Bilirubin 0.4, Aspartate Amino Transf (AST/SGOT) 14L, Alanine Aminotransferase (ALT/SGPT) 17, Alkaline Phosphatase 98, Total Protein 7.8, Albumin 3.7, Globulin 4.1, Albumin/Globulin Ratio 0.9L, Lipase 89 02/10/20 04:10: White Blood Count 3.9L, Red Blood Count 3.55L, Hemoglobin 11.6L, Hematocrit 35.8L, Mean Corpuscular Volume 101H, Mean Corpuscular Hemoglobin 32.8H, Mean Corpuscular Hemoglobin Concent 32.5, Red Cell Distribution Width 12.5, Platelet Count 191, Mean Platelet Volume 6.8, Neutrophils (%) (Auto) 37.3L, Lymphocytes ( %) (Auto) 48.3H, Monocytes (%) (Auto) 8.1, Eosinophils (%) (Auto) 4.9H, Basophils (%) (Auto) 1.4, Sodium Level 139, Potassium Level 3.7, Chloride Level 103, Carbon Dioxide Level 28, Anion Gap 8, Blood Urea Nitrogen 14, Creatinine 1.2, Estimat Glomerular Filtration Rate > 60, Glucose Level 79, Calcium Level 8.5, Magnesium Level 1.8 02/10/20 13:49: White Blood Count [Pending], Lymphocytes [Pending], Carcinoembryonic Antigen [ Pending], CA 19-9 Antigen [Pending], Prostate Specific Antigen 8.23H, Free Prostate Specific Antigen [Pending], Percent Free Prostate Specific Ag [Pending] , Prostate Specific Antigen Total [Pending], Percent CD3 Cells [Pending], Absolute CD3 Count [Pending], Percent CD4 Cells [Pending], Absolute CD4 Count [ Pending], T-Lymphocyte CD4/CD8 Ratio [Pending], Percent CD8 Cells [Pending], Absolute CD8 Count [Pending], Rapid Plasma Reagin [Pending], HIV-1 RNA (PCR) log10 Value [Pending], HIV-1 RNA Ultraquantitative (PCR) [Pending] Height (Feet): 5 Height (Inches): 10.00 Weight (Pounds): 83 Jojo Hunter MD Feb 10, 2020 16:54
[2020-02-10 20:00] VITALS: BP 136/83
[2020-02-11] VITALS (7 sets, daily range): BP systolic 115–143; BP diastolic 54–115
--- NOTE | 2020-02-11 02:00 | Consultation ---
DATE OF CONSULTATION: 02/10/2020 GASTROENTEROLOGY CONSULTATION CONSULTING PHYSICIAN: Jojo Hunter M.D. CHIEF COMPLAINT: I was asked to see this patient by Dr. Steven Aj for evaluation of abnormal imaging results. HISTORY OF PRESENT ILLNESS: The patient is a 59-year-old man with multiple medical problems who comes in due to partially incarcerated left inguinal hernia. The inguinal hernia has been since reduced by 2 physicians and he feels better. He had a CT scan of the abdomen and pelvis, which showed a mildly dilated biliary tree with some biliary sickness. There was, however, no discrete obstruction identified. There is also some degree of small bowel thickening of unclear etiology. The patient denies any abdominal pain, nausea, vomiting, or diarrhea. He has not had a colonoscopy until this dates. His liver tests are normal. He has been seen by General Surgery. His prostate appeared to be heterogeneous and enlarged and he has an elevated PSA. PAST MEDICAL HISTORY: History of HIV, left inguinal hernia, and hypertension. MEDICATIONS: Outpatient medications, lisinopril. FAMILY HISTORY: Noncontributory. SOCIAL HISTORY: The patient has one child and has a girlfriend. He does not smoke or drink. REVIEW OF SYSTEMS: Otherwise negative. PHYSICAL EXAMINATION: GENERAL: This is a pleasant man, seen in his room. HEENT: Normocephalic and atraumatic. Sclerae anicteric. Oropharynx clear. NECK: Supple. LUNGS: Clear to auscultation. CARDIOVASCULAR: Revealed regular rate. ABDOMEN: Soft, nontender. Good bowel sounds. There is a left inguinal and scrotal hernia. EXTREMITIES: Revealed no edema. LABORATORY DATA: Noted. ASSESSMENT: This patient presented with left inguinal and scrotal hernia, which has been reduced and now has a benign appearance. Management of that has been addressed separately by the surgical staff. The patient has borderline evaluation of the left common bile duct on the CT as well as some thickening. However, his liver tests are normal and he is asymptomatic. The significance of this finding is, therefore, unclear. I would check his MRI with an MRCP protocol to check the biliary tree closely. At the same time, the patient also has some reported small bowel thickening of again unclear significance. MR enterography to examine the same time as an MRCP to evaluate the small bowel without any definitive other findings or symptoms with significant of these findings are unclear, but they should be worked up. The patient does have an unusually large prostate with elevated PSA. Urology consultation should be considered. RECOMMENDATIONS: Per above discussion and per orders written in the chart. Thank you for asking me to participate in the care of this patient. Jojo Hunter M.D. DR: JODI JOB#: [id number] CC:
[2020-02-11] MEDS: Heparin 5000 units/ml inj SUBQ SCH ×3 (06:13→21:25)
[2020-02-11 06:24] LABS: EOSINOPHILS % (AUTO) 5.5 % (0.0-3.0); HEMATOCRIT 33.8 % (42.0-52.0); HEMOGLOBIN 10.9 G/DL (14.2-18.0); LYMPHOCYTES % (AUTO) 48.3 % (20.0-45.0); MEAN CORPUSCULAR VOLUME 102 FL (80-99); MONOCYTES % (AUTO) 6.7 % (1.0-10.0); NEUTROPHILS % (AUTO) 37.6 % (45.0-75.0); PLATELET COUNT 208 K/UL (150-450); RED BLOOD COUNT 3.33 M/UL (4.70-6.10); RED CELL DISTRIBUTION WIDTH 12.6 % (11.6-14.8); WHITE BLOOD COUNT 3.9 K/UL (4.8-10.8)
[2020-02-11] MEDS: D5NS 1,000 ML IV SCH ×2 (06:24→16:26)
[2020-02-11 07:01] LABS: ALANINE AMINOTRANSFERASE 13 U/L (12-78); ALBUMIN 3.1 G/DL (3.4-5.0); ALBUMIN/GLOBULIN RATIO 0.9 (1.0-2.7); ALKALINE PHOSPHATASE 78 U/L (46-116); ANION GAP 5 mmol/L (5-15); ASPARTATE AMINO TRANSFERASE 17 U/L (15-37); BILIRUBIN,TOTAL 0.2 MG/DL (0.2-1.0); BLOOD UREA NITROGEN 14 mg/dL (7-18); CALCIUM 8.4 MG/DL (8.5-10.1); CARBON DIOXIDE 30 MMOL/L (21-32); CHLORIDE 105 MMOL/L (98-107); CREATININE 1.3 MG/DL (0.55-1.30); SODIUM 140 MMOL/L (136-145)
[2020-02-11] MEDS: Docusate 100mg cap ORAL SCH ×2 (08:31→21:25)
[2020-02-11] MEDS: Lisinopril 10mg tab ORAL SCH (08:31)
[2020-02-11] MEDS: Thiamine 100mg tab ORAL SCH (08:31)
[2020-02-11] MEDS: Dolutegravir Sodium 50mg tab ORAL SCH (08:32)
--- NOTE | 2020-02-11 12:34 | General Progress Note ---
Assessment/Plan Assessment/Plan: Patient is a 59-year-old male SN[facility] resident ([facility]) w/ MMP including Hx HIV on ART, HTN, L inguinal hernia who presented to the ED with left tisticular pain and increased left inguinal hernia fullness. Pt noted to have several concerning features on CT abd for possible malignancy. #Left Testicular pain #Extra hepatic bili duct dilation #Enlarged, heterogeneic Prostate #Bladder wall thickening #Small bowel wall thickening - admit to in pt - hold off on abx for now as pt seems non toxic - General surgery consult - GI consult- MRCP and MRE ordered tro further eval delia lesley dilatation - Heme onc consult, Dr Jimenez - PSA elevated, f/u [facility], CA 19-9 - Start 2g Na diet - Pain control - Supportive care #Left inguinal hernia - general surgery consult- appreciate recs, stable for outpt followup, easily reducible #HIV on art #HTN - ID consult for assessment and mgt of HIV regimen, Dr Kim - send CD4 & VL FENPPX DVTPPX: scds GI PPX: Fluids: Diet: 2g na Lines: PT/OT: Code status: full Dispo: SNF ([facility]) Reason for Continued Hospitalization: Workup and mgt of possible malignancy 35 minutes spent on this encounter. Discussed with RN at bedside and consultants named above. Time of note may not reflect time patient was seen. Subjective Date patient seen: Feb 11, 2020 Time patient seen: 12:32 ROS Limited/Unobtainable: No Allergies: Coded Allergies: No Known Allergies (Unverified , 02/09/20) Subjective No complaints today, would like to shower, just had a BM, reports it was normal looking. Denied any cp/sob/n/v/abd pain or change in bowel habits Objective Last 24 Hour Vital Signs Date Time Temp Pulse Resp B/P (MAP) Pulse Ox O2 Delivery O2 Flow Rate FiO2 02/11/20 09:00 Room Air 02/11/20 08:31 133/78 02/11/20 08:00 98.3 78 19 133/78 (96) 95 02/11/20 04:00 97.9 84 17 135/115 (122) 97 02/11/20 00:00 98.8 89 18 115/54 (74) 98 02/10/20 21:00 Room Air 6/20/20 20:00 99.0 77 17 136/83 (100) 97 02/10/20 15:43 97.5 85 20 124/89 (101) 98 Intake and Output 02/10/20 02/11/20 19:00 07:00 Intake Total 2110 ml 1100 ml Output Total 1200 ml 500 ml Balance 910 ml 600 ml Intake Oral 1010 ml IV Total 1100 ml 1100 ml Output Urine Total 1200 ml 500 ml Laboratory Tests 02/10/20 13:49: White Blood Count [Pending], Lymphocytes [Pending], Carcinoembryonic Antigen 2.3 , CA 19-9 Antigen [Pending], Prostate Specific Antigen 8.23H, Free Prostate Specific Antigen 1.66, Percent Free Prostate Specific Ag 19.5, Prostate Specific Antigen Total 8.5H, Percent CD3 Cells [Pending], Absolute CD3 Count [ Pending], Percent CD4 Cells [Pending], Absolute CD4 Count [Pending], T- Lymphocyte CD4/CD8 Ratio [Pending], Percent CD8 Cells [Pending], Absolute CD8 Count [Pending], Rapid Plasma Reagin [Pending], HIV-1 RNA (PCR) log10 Value [ Pending], HIV-1 RNA Ultraquantitative (PCR) [Pending] 02/11/20 04:00: White Blood Count 3.9L, Red Blood Count 3.33L, Hemoglobin 10.9L, Hematocrit 33.8L, Mean Corpuscular Volume 102H, Mean Corpuscular Hemoglobin 32.9H, Mean Corpuscular Hemoglobin Concent 32.4, Red Cell Distribution Width 12.6, Platelet Count 208, Mean Platelet Volume 7.7, Neutrophils (%) (Auto) 37.6L, Lymphocytes ( %) (Auto) 48.3H, Monocytes (%) (Auto) 6.7, Eosinophils (%) (Auto) 5.5H, Basophils (%) (Auto) 2.0, Sodium Level 140, Potassium Level 4.0, Chloride Level 105, Carbon Dioxide Level 30, Anion Gap 5, Blood Urea Nitrogen 14, Creatinine 1.3, Estimat Glomerular Filtration Rate > 60, Glucose Level 76, Calcium Level 8.4L, Total Bilirubin 0.2, Aspartate Amino Transf (AST/SGOT) 17, Alanine Aminotransferase (ALT/SGPT) 13, Alkaline Phosphatase 78, Total Protein 6.4, Albumin 3.1L, Globulin 3.3, Albumin/Globulin Ratio 0.9L Height (Feet): 5 Height (Inches): 10.00 Weight (Pounds): 180 Objective General: alert, cooperative, no distress, appears stated age Head: normocephalic, without obvious abnormality, atraumatic Eyes: conjunctivae/corneas clear. PERRL, EOM's intact Throat: lips, mucosa, and tongue normal. MMM Neck: supple, symmetrical, trachea midline, and no JVD Lungs: clear to auscultation bilaterally Heart: regular rate and rhythm, S1, S2 normal, no murmur, click, rub or gallop Abdomen: soft, non-tender, non-distended, bowel sounds normal; no masses or organomegaly Reducible L inguinal scrotal hernia, no erythema or signs of incarceration/ strangulation Extremities: extremities normal, atraumatic, no cyanosis or edema Pulses: 2+ and symmetric Skin: skin color, texture, turgor normal; no rashes or lesions Neurologic: grossly normal, no focal deficits Julio White MD Feb 11, 2020 12:34
[2020-02-11] MEDS: Morphine Sulfate 2mg/ml Inj(IV/IM USE ONLY) IVP PRN (14:10)
--- NOTE | 2020-02-11 15:07 | Surgery Progress Note ---
Surgery Progress Note Subjective Symptoms: improved, tolerating diet, voiding well, passing flatus, BM Additional Comments states feels well had BM today tolerating diet hernia recurred but still reducible Objective Last 24 Hour Vital Signs Date Time Temp Pulse Resp B/P (MAP) Pulse Ox O2 Delivery O2 Flow Rate FiO2 02/11/20 14:40 98.7 02/11/20 12:00 98.7 100 19 143/83 (103) 97 02/11/20 09:00 Room Air 02/11/20 08:31 133/78 02/11/20 08:00 98.3 78 19 133/78 (96) 95 02/11/20 04:00 97.9 84 17 135/115 (122) 97 02/11/20 00:00 98.8 89 18 115/54 (74) 98 02/10/20 21:00 Room Air 02/10/20 20:00 99.0 77 17 136/83 (100) 97 02/10/20 15:43 97.5 85 20 124/89 (101) 98 I&O Intake and Output 02/10/20 02/11/20 19:00 07:00 Intake Total 2110 ml 1100 ml Output Total 1200 ml 500 ml Balance 910 ml 600 ml Intake Oral 1010 ml IV Total 1100 ml 1100 ml Output Urine Total 1200 ml 500 ml Dressing: other Wound: other Drains: other Cardiovascular: RSR Respiratory: decreased breath sounds Abdomen: soft, non-tender, present bowel sounds, other - hernia left inguinal into scortal reducible Extremities: no edema, no tenderness, no cyanosis Laboratory Tests Test 02/11/20 04:00 White Blood Count 3.9 K/UL (4.8-10.8) L Red Blood Count 3.33 M/UL (4.70-6.10) L Hemoglobin 10.9 G/DL (14.2-18.0) L Hematocrit 33.8 % (42.0-52.0) L Mean Corpuscular Volume 102 FL (80-99) H Mean Corpuscular Hemoglobin 32.9 PG (27.0-31.0) H Mean Corpuscular Hemoglobin Concent 32.4 G/DL (32.0-36.0) Red Cell Distribution Width 12.6 % (11.6-14.8) Platelet Count 208 K/UL (150-450) Mean Platelet Volume 7.7 FL (6.5-10.1) Neutrophils (%) (Auto) 37.6 % (45.0-75.0) L Lymphocytes (%) (Auto) 48.3 % (20.0-45.0) H Monocytes (%) (Auto) 6.7 % (1.0-10.0) Eosinophils (%) (Auto) 5.5 % (0.0-3.0) H Basophils (%) (Auto) 2.0 % (0.0-2.0) Sodium Level 140 MMOL/L (136-145) Potassium Level 4.0 MMOL/L (3.5-5.1) Chloride Level 105 MMOL/L (98-107) Carbon Dioxide Level 30 MMOL/L (21-32) Anion Gap 5 mmol/L (5-15) Blood Urea Nitrogen 14 mg/dL (7-18) Creatinine 1.3 MG/DL (0.55-1.30) Estimat Glomerular Filtration Rate > 60 mL/min (>60) Glucose Level 76 MG/DL (74-106) Calcium Level 8.4 MG/DL (8.5-10.1) L Total Bilirubin 0.2 MG/DL (0.2-1.0) Aspartate Amino Transf (AST/SGOT) 17 U/L (15-37) Alanine Aminotransferase (ALT/SGPT) 13 U/L (12-78) Alkaline Phosphatase 78 U/L (46-116) Total Protein 6.4 G/DL (6.4-8.2) Albumin 3.1 G/DL (3.4-5.0) L Globulin 3.3 g/dL Albumin/Globulin Ratio 0.9 (1.0-2.7) L Plan Problems: (1) Renal cyst (2) Left inguinal hernia Assessment & Plan: Patient with a large reducible scrotal left inguinal hernia. No signs or symptoms of obstructive symptoms. Not incarcerated not strangulated by any means I was able to easily reduce the hernia at the bedside without complication. Identified findings with the patient discussed at bedside. I strongly recommend patient follow-up immediately upon outpatient with his PCP followed by surgeon within his network for considerations of elective left inguinal hernia repair as it currently still reducible non-complicated. I sized him that there is a potential given the size of this thing will become more symptomatic larger or more complicated in the future and the sooner he gets repaired the better. He expressed understanding and says now that it is bigger he will seek repair. ABDOMEN: Liver: Indeterminate at subcentimeter low attenuation foci in the liver parenchyma. Gallbladder and bile ducts: The gallbladder is contracted. Biliary ductal dilatation with the extrahepatic biliary tree measuring up to 7 mm. There appears to be wall thickening of the common bile duct that is indeterminate for malignancy or infection. No calcified stones. Pancreas: Unremarkable. No mass. No ductal dilation. Spleen: Unremarkable. No splenomegaly. Adrenals: Unremarkable. No mass. Kidneys and ureters: Very large partially exophytic anterior left renal cyst measuring up to 7.6 cm. No evidence of obstructive uropathy. Stomach and bowel: Negative for high-grade lower GI tract obstruction. There are segments of small bowel demonstrating at least a mild wall thickening. Negative for evidence of pneumatosis. There is a large left inguinal hernia extending into the scrotum containing multiple loops of bowel as well as mesenteric vessels. No significant obstruction secondary to the hernia. Currently no evidence of bowel strangulation. PELVIS: Appendix: No findings to suggest acute appendicitis. Bladder: Indeterminate moderate bladder wall thickening. Reproductive: Marked heterogeneous enlargement of the prostate gland indeterminate for malignancy and/or prostatitis. ABDOMEN and PELVIS: Intraperitoneal space: Unremarkable. No free air. No significant fluid collection. Bones/joints: No acute fracture. No dislocation. Soft tissues: See above. Vasculature: Unremarkable. No abdominal aortic aneurysm. Lymph nodes: Mild indeterminate retroperitoneal lymphadenopathy. Significant indeterminate bilateral inguinal lymphadenopathy. IMPRESSION: Biliary ductal dilatation with question of extrahepatic biliary tree wall thickening indeterminate for a distal obstructing lesion, neoplasm or cholangitis. Tiny nonspecific and indeterminate low attenuation foci in the liver parenchyma. Small bowel wall thickening is nonspecific but can be seen with infectious or inflammatory enteritis. Marked enlargement of the prostate gland that is significantly heterogeneous and indeterminate for malignancy and/or prostatitis. Nonspecific bladder wall thickening can be seen with infiltrative neoplastic, inflammatory or infectious etiologies. Large left inguinal hernia without evidence of bowel obstruction or strangulation. Indeterminate lymphadenopathy as above. (3) Thickened small bowel (4) Common bile duct dilation Assessment & Plan: discussed with GI appreciate input labs noted imaging reviewed agree with GI - MRCP with Adan Starks Feb 11, 2020 15:06
--- NOTE | 2020-02-11 17:16 | Infectious Diseases Prog Note ---
Assessment/Plan Assessment/Plan Full consult dictated: A) 1) hiv 2) ? cd4/viral load 3) hernia 4) dilated biliary ducts P) 1) Triumeq - individual components available per pharmacy 2) check cd4/viral load 3) continue mgt per primary and consultants 4) thank you Subjective Constitutional: Denies: fever HEENT: Denies: congestion Respiratory: Denies: shortness of breath Cardiovascular: Denies: chest pain Gastrointestinal/Abdominal: Denies: nausea, vomiting, diarrhea Allergies: Coded Allergies: No Known Allergies (Unverified , 02/09/20) Objective Vital Signs Last 24 Hour Vital Signs Date Time Temp Pulse Resp B/P (MAP) Pulse Ox O2 Delivery O2 Flow Rate FiO2 02/11/20 16:00 98.0 70 19 135/77 (96) 98 02/11/20 14:40 98.7 02/11/20 12:00 98.7 100 19 143/83 (103) 97 02/11/20 09:00 Room Air 02/11/20 08:31 133/78 02/11/20 08:00 98.3 78 19 133/78 (96) 95 02/11/20 04:00 97.9 84 17 135/115 (122) 97 02/11/20 00:00 98.8 89 18 115/54 (74) 98 02/10/20 21:00 Room Air 02/10/20 20:00 99.0 77 17 136/83 (100) 97 Height (Feet): 5 Height (Inches): 10.00 Weight (Pounds): 180 General Appearance: no acute distress HEENT: normocephalic, atraumatic, anicteric Respiratory/Chest: lungs clear, normal breath sounds, no respiratory distress Cardiovascular: normal rate, regular rhythm Laboratory Tests Test 02/11/20 04:00 White Blood Count 3.9 K/UL (4.8-10.8) L Red Blood Count 3.33 M/UL (4.70-6.10) L Hemoglobin 10.9 G/DL (14.2-18.0) L Hematocrit 33.8 % (42.0-52.0) L Mean Corpuscular Volume 102 FL (80-99) H Mean Corpuscular Hemoglobin 32.9 PG (27.0-31.0) H Mean Corpuscular Hemoglobin Concent 32.4 G/DL (32.0-36.0) Red Cell Distribution Width 12.6 % (11.6-14.8) Platelet Count 208 K/UL (150-450) Mean Platelet Volume 7.7 FL (6.5-10.1) Neutrophils (%) (Auto) 37.6 % (45.0-75.0) L Lymphocytes (%) (Auto) 48.3 % (20.0-45.0) H Monocytes (%) (Auto) 6.7 % (1.0-10.0) Eosinophils (%) (Auto) 5.5 % (0.0-3.0) H Basophils (%) (Auto) 2.0 % (0.0-2.0) Sodium Level 140 MMOL/L (136-145) Potassium Level 4.0 MMOL/L (3.5-5.1) Chloride Level 105 MMOL/L (98-107) Carbon Dioxide Level 30 MMOL/L (21-32) Anion Gap 5 mmol/L (5-15) Blood Urea Nitrogen 14 mg/dL (7-18) Creatinine 1.3 MG/DL (0.55-1.30) Estimat Glomerular Filtration Rate > 60 mL/min (>60) Glucose Level 76 MG/DL (74-106) Calcium Level 8.4 MG/DL (8.5-10.1) L Total Bilirubin 0.2 MG/DL (0.2-1.0) Aspartate Amino Transf (AST/SGOT) 17 U/L (15-37) Alanine Aminotransferase (ALT/SGPT) 13 U/L (12-78) Alkaline Phosphatase 78 U/L (46-116) Total Protein 6.4 G/DL (6.4-8.2) Albumin 3.1 G/DL (3.4-5.0) L Globulin 3.3 g/dL Albumin/Globulin Ratio 0.9 (1.0-2.7) L Current Medications Medications (Trade) Dose Ordered Sig/Jimmy Route PRN Reason Start Time Stop Time Status Last Admin Dose Admin Abacavir Sulfate (Ziagen) 600 mg DAILY ORAL 02/10/20 15:00 03/11/20 14:59 02/11/20 08:32 Acetaminophen (Tylenol) 650 mg Q4H PRN ORAL Mild Pain (Pain Scale 1-3) 02/09/20 23:30 03/10/20 23:29 Acetaminophen (Tylenol) 650 mg Q4H PRN ORAL Temp >100.5 02/09/20 23:30 03/10/20 23:29 Al Hydroxide/Mg Hydroxide (Mylanta II) 30 ml Q6H PRN ORAL dyspepsia 02/09/20 23:30 03/10/20 23:29 Bisacodyl (Dulcolax) 10 mg HSPRN PRN RECTAL Constipation 02/09/20 23:30 05/09/20 23:29 Dextrose (Dextrose 50%) 25 ml Q30M PRN IV Hypoglycemia 02/09/20 23:30 05/09/20 23:29 Dextrose (Dextrose 50%) 50 ml Q30M PRN IV Hypoglycemia 02/09/20 23:30 05/09/20 23:29 Dextrose/Sodium Chloride 1,000 ml @ 100 mls/hr Q10H IV 02/10/20 00:24 03/11/20 00:23 02/11/20 16:26 Diphenhydramine HCl (Benadryl) 25 mg Q6H PRN ORAL Itching/Pruritis 02/09/20 23:30 03/10/20 23:29 Docusate Sodium (Colace) 100 mg EVERY 12 HOURS ORAL 02/10/20 09:00 03/11/20 08:59 02/11/20 08:31 Dolutegravir Sodium (Tivicay) 50 mg DAILY ORAL 02/10/20 15:00 05/10/20 14:59 02/11/20 08:32 Heparin Sodium (Porcine) (Heparin 5000 units/ml) 5,000 units EVERY 8 HOURS SUBQ 02/10/20 06:00 03/26/20 05:59 02/11/20 14:09 Iohexol (OMNIPAQUE-300 100ml) 100 ml NOW PRN INJ Radiology Procedure 02/09/20 20:00 02/11/20 19:53 Lamivudine (Epivir) 300 mg DAILY ORAL 02/10/20 15:00 03/11/20 14:59 02/11/20 08:31 Lisinopril (ZestriL) 10 mg DAILY ORAL 02/10/20 09:00 03/11/20 08:59 02/11/20 08:31 Lorazepam (Ativan 2mg/ml 1ml) 0.5 mg Q4H PRN IV For Anxiety 02/09/20 23:30 02/16/20 23:29 Magnesium Hydroxide (Mom) 30 ml HSPRN PRN ORAL Constipation 02/09/20 23:30 03/10/20 23:29 Metoclopramide HCl (Reglan) 10 mg Q6H PRN IVP Nausea & Vomiting 02/09/20 23:30 03/10/20 23:29 Morphine Sulfate (Morphine Sulfate) 2 mg Q4H PRN IVP Moderate Pain (Pain Scale 4-6) 02/09/20 23:30 02/16/20 23:29 02/11/20 14:10 Morphine Sulfate (Morphine Sulfate) 4 mg Q4H PRN IVP Severe Pain (Pain Scale 7-10) 02/09/20 23:30 02/16/20 23:29 Ondansetron HCl (Zofran) 4 mg Q6H PRN IVP Nausea & Vomiting 02/09/20 23:30 03/10/20 23:29 Polyethylene Glycol (Miralax) 17 gm HSPRN PRN ORAL Constipation 02/09/20 23:30 03/10/20 23:29 Temazepam (Restoril) 15 mg HSPRN PRN ORAL Insomnia 02/09/20 23:30 02/16/20 23:29 Thiamine HCl (Vitamin B1) 100 mg DAILY ORAL 02/10/20 09:00 03/11/20 08:59 02/11/20 08:31 Mindy Sanchez MD Feb 11, 2020 17:16
--- NOTE | 2020-02-11 19:30 | Consultation ---
DATE OF CONSULTATION: 02/11/2020 INFECTIOUS DISEASES CONSULTATION CONSULTING PHYSICIAN: Mindy Sanchez MD. ATTENDING PHYSICIAN: Julio White MD. REFERRING PHYSICIANS: 1. Julio White MD 2. Steven Aj MD. REASON FOR CONSULTATION: HIV management, anti-retroviral therapy. CHIEF COMPLAINT: The patient's chief complaint coming into the hospital is left inguinal hernia. HISTORY OF PRESENT ILLNESS: This is a 59-year-old male who comes in with history of HIV who has history of left inguinal hernia. He came with testicular pain. The patient had a CT scan of the abdomen and pelvis, which showed biliary ductal dilatation and actual biliary tree wall thickening, enlarged prostate, left inguinal hernia without evidence of obstruction or strangulation. The patient is being followed by GI and Surgery. Because of his history of HIV, Infectious Diseases requested for management. CD4 and viral load have been ordered. The patient is on Triumeq as an outpatient, however, we only have components here at [place]. He has been started abacavir, dolutegravir, and lamivudine. REVIEW OF SYSTEMS: The patient seems to be alert, but possibly unsteady in gait. He has no fevers. No mention of weight loss or night sweats. CARDIAC: No chest pain. GASTROINTESTINAL: No nausea, vomiting, or diarrhea. GENITOURINARY: No dysuria or frequency. PULMONARY: No shortness of breath. SKIN: No rash. He has testicular pain. PAST MEDICAL HISTORY: The patient has past medical history of following: The patient has a past medical history of HIV, hypertension, left inguinal hernia, testicular pain, and hypertension. ALLERGIES: No known drug allergies. No antibiotic allergies. SOCIAL HISTORY: Negative for smoking, alcohol, or drug abuse. FAMILY HISTORY: Noncontributory. Negative for exposure to tuberculosis or cancer. MEDICATIONS: Upon reviewing the MAR, the patient is on the following medications: He is on abacavir, dolutegravir, lamivudine, lisinopril, thiamine, docusate, acetaminophen, morphine, Zofran, metoclopramide, lorazepam, and diphenhydramine. Outside medications noted and reconciliated. PHYSICAL EXAMINATION: VITAL SIGNS: Temperature 98.0, pulse rate 70, respiratory rate 19, blood pressure 135/77, and saturation 98% on room air. GENERAL: Alert, responsive, in no acute distress. HEAD AND NECK: Oral exam, no thrush. Eye exam, no icterus. Normocephalic. Neck is supple. No JVD. HEART: Regular. No gallop or murmur. No friction rub. ABDOMEN: Soft. Positive bowel sounds. Nontender. LUNGS: Clear bilaterally. No rhonchi or rales. SKIN: No rash or dermatitis. MUSCULOSKELETAL: No effusions. Legs without cellulitis. PERIPHERAL VASCULAR: No cyanosis. GENITOURINARY: No Ndiaye. He has left testicular pain. NEUROLOGIC: Intact. LINE SITES: Without phlebitis, may be unsteady gait. LABORATORY DATA: Creatinine is 1.3. White count 3.9, hemoglobin 10.9. CD4 is pending. RPR and viral load has been ordered, pending. LFTs were noted. CT scan of the abdomen and pelvis showed the following, it showed the biliary duct dilatation as described and also left inguinal hernia without evidence of bowel obstruction or strangulation, also showed enlarged prostate. ASSESSMENT AND PLAN: 1. The patient has history of HIV, unclear T-cell count, viral load. He was on Triumeq. Here at [place], we will continue the components of Triumeq including abacavir, dolutegravir and lamivudine. Continue anti-retroviral therapy. Check CD4 viral load to evaluate HIV status. The patient is to follow up with primary HIV physician at discharge. 2. Hypertension. 3. Left inguinal hernia. 4. Testicular pain. 5. Hypertension per primary care team. 6. GI and surgery follow up. 7. No known drug allergies. 8. Social history is negative. 9. Family history is noncontributory. 10. MAR was noted. 11. Case was discussed with RN. 12. Continue treatment per primary consultants. Mindy Sanchez M.D. DR: Shay JOB#: [id number] CC:
--- NOTE | 2020-02-11 21:50 | General Progress Note ---
Assessment/Plan Assessment/Plan: Assessment - (L) inguinal hernia - borderline biliary dilation / thickening with normal LFT, ? significance - ill defined small bowel changes without associated symptoms, ? significance - enlarged prostate with elevated PSA Recommendations - check MRCP of biliary tree - check MRE of small bowel - general surgery eval of inguinal hernia - eventual / outpatient colonoscopy (has not had one) - check stool OB Subjective Allergies: Coded Allergies: No Known Allergies (Unverified , 02/09/20) Subjective Above noted feels OK no new abd symptoms Objective Last 24 Hour Vital Signs Date Time Temp Pulse Resp B/P (MAP) Pulse Ox O2 Delivery O2 Flow Rate FiO2 02/11/20 20:18 Room Air 02/11/20 20:00 98.8 98 19 135/94 (108) 100 02/11/20 16:00 98.0 70 19 135/77 (96) 98 02/11/20 14:40 98.7 02/11/20 12:00 98.7 100 19 143/83 (103) 97 02/11/20 09:00 Room Air 02/11/20 08:31 133/78 02/11/20 08:00 98.3 78 19 133/78 (96) 95 02/11/20 04:00 97.9 84 17 135/115 (122) 97 02/11/20 00:00 98.8 89 18 115/54 (74) 98 Intake and Output 02/10/20 02/11/20 19:00 07:00 Intake Total 2110 ml 1100 ml Output Total 1200 ml 500 ml Balance 910 ml 600 ml Intake Oral 1010 ml IV Total 1100 ml 1100 ml Output Urine Total 1200 ml 500 ml Laboratory Tests 02/11/20 04:00: White Blood Count 3.9L, Red Blood Count 3.33L, Hemoglobin 10.9L, Hematocrit 33.8L, Mean Corpuscular Volume 102H, Mean Corpuscular Hemoglobin 32.9H, Mean Corpuscular Hemoglobin Concent 32.4, Red Cell Distribution Width 12.6, Platelet Count 208, Mean Platelet Volume 7.7, Neutrophils (%) (Auto) 37.6L, Lymphocytes ( %) (Auto) 48.3H, Monocytes (%) (Auto) 6.7, Eosinophils (%) (Auto) 5.5H, Basophils (%) (Auto) 2.0, Sodium Level 140, Potassium Level 4.0, Chloride Level 105, Carbon Dioxide Level 30, Anion Gap 5, Blood Urea Nitrogen 14, Creatinine 1.3, Estimat Glomerular Filtration Rate > 60, Glucose Level 76, Calcium Level 8.4L, Total Bilirubin 0.2, Aspartate Amino Transf (AST/SGOT) 17, Alanine Aminotransferase (ALT/SGPT) 13, Alkaline Phosphatase 78, Total Protein 6.4, Albumin 3.1L, Globulin 3.3, Albumin/Globulin Ratio 0.9L Height (Feet): 5 Height (Inches): 10.00 Weight (Pounds): 180 Objective WDWN NCAT supple CTA RR abd soft, (L) IH no edema Jojo Hunter MD Feb 11, 2020 21:50
[2020-02-11] MEDS ORDERED: Gadavist 7.5mMol/7.5ml vial IV PRN (22:00)
[2020-02-12] MEDS: D5NS 1,000 ML IV SCH ×3 (02:16→21:47)
[2020-02-12 04:00] VITALS: BP 132/60
[2020-02-12 06:21] LABS: BASOPHILS % (AUTO) 1.4 % (0.0-2.0); EOSINOPHILS % (AUTO) 5.5 % (0.0-3.0); HEMATOCRIT 34.5 % (42.0-52.0); HEMOGLOBIN 11.1 G/DL (14.2-18.0); LYMPHOCYTES % (AUTO) 44.7 % (20.0-45.0); MEAN CORPUSCULAR VOLUME 101 FL (80-99); MONOCYTES % (AUTO) 8.4 % (1.0-10.0); PLATELET COUNT 185 K/UL (150-450); RED BLOOD COUNT 3.42 M/UL (4.70-6.10); RED CELL DISTRIBUTION WIDTH 12.4 % (11.6-14.8); WHITE BLOOD COUNT 3.7 K/UL (4.8-10.8)
[2020-02-12] MEDS: Heparin 5000 units/ml inj SUBQ SCH ×3 (06:24→21:32)
[2020-02-12 06:32] LABS: ALANINE AMINOTRANSFERASE 13 U/L (12-78); ALBUMIN/GLOBULIN RATIO 0.9 (1.0-2.7); ALKALINE PHOSPHATASE 77 U/L (46-116); ANION GAP 6 mmol/L (5-15); ASPARTATE AMINO TRANSFERASE 20 U/L (15-37); BILIRUBIN,TOTAL 0.3 MG/DL (0.2-1.0); BLOOD UREA NITROGEN 14 mg/dL (7-18); CALCIUM 8.6 MG/DL (8.5-10.1); CARBON DIOXIDE 27 MMOL/L (21-32); CHLORIDE 106 MMOL/L (98-107); CREATININE 1.2 MG/DL (0.55-1.30); SODIUM 139 MMOL/L (136-145)
--- NOTE | 2020-02-12 07:14 | Consultation ---
History of Present Illness General Chief Complaint: Male Urogenital Problems Present Illness Allergies: Coded Allergies: No Known Allergies (Unverified , 02/09/20) Medication History Scheduled Lisinopril* (Lisinopril*), 10 MG ORAL DAILY, (Reported) Thiamine Hcl* (Vitamin B-1*), 100 MG ORAL DAILY, (Reported) Scheduled PRN Acetaminophen* (Acetaminophen 325MG Tablet*), 650 MG ORAL Q6H PRN for Mild Pain (Pain Scale 1-3), (Reported) Miscellaneous Medications Abacavir/Dolutegravir/Lamivudi (Triumeq 600-50-300 mg Tablet), 1 EACH PO, ( Reported) Mv-Mn/Iron/Fa/Herbal Cmplx#190 (Vitamin D3 Complete Caplet), 2 EACH PO, ( Reported) Discontinued Medications Acetaminophen* (Tylenol Extra Strength*), 500 MG ORAL Q6H PRN for Mild Pain/ Temp > 100.5, (Reported) Discontinued Reason: Prescription changed Patient History Healthcare decision maker Resuscitation status Advanced Directive on File Physical Exam Last 24 Hour Vital Signs Date Time Temp Pulse Resp B/P (MAP) Pulse Ox O2 Delivery O2 Flow Rate FiO2 02/12/20 04:00 98.3 85 19 132/60 (84) 95 02/11/20 23:58 98.2 101 19 140/87 (104) 97 02/11/20 20:18 Room Air 02/11/20 20:00 98.8 98 19 135/94 (108) 100 02/11/20 16:00 98.0 70 19 135/77 (96) 98 02/11/20 14:40 98.7 02/11/20 12:00 98.7 100 19 143/83 (103) 97 02/11/20 09:00 Room Air 02/11/20 08:31 133/78 02/11/20 08:00 98.3 78 19 133/78 (96) 95 Intake and Output 02/11/20 02/12/20 19:00 07:00 Intake Total 2000 ml 480 ml Output Total 700 ml Balance 2000 ml -220 ml Intake Oral 480 ml IV Total 1200 ml Other 800 ml Output Urine Total 700 ml Laboratory Tests Test 02/12/20 05:15 White Blood Count 3.7 K/UL (4.8-10.8) L Red Blood Count 3.42 M/UL (4.70-6.10) L Hemoglobin 11.1 G/DL (14.2-18.0) L Hematocrit 34.5 % (42.0-52.0) L Mean Corpuscular Volume 101 FL (80-99) H Mean Corpuscular Hemoglobin 32.4 PG (27.0-31.0) H Mean Corpuscular Hemoglobin Concent 32.0 G/DL (32.0-36.0) Red Cell Distribution Width 12.4 % (11.6-14.8) Platelet Count 185 K/UL (150-450) Mean Platelet Volume 6.6 FL (6.5-10.1) Neutrophils (%) (Auto) 40.0 % (45.0-75.0) L Lymphocytes (%) (Auto) 44.7 % (20.0-45.0) Monocytes (%) (Auto) 8.4 % (1.0-10.0) Eosinophils (%) (Auto) 5.5 % (0.0-3.0) H Basophils (%) (Auto) 1.4 % (0.0-2.0) Sodium Level 139 MMOL/L (136-145) Potassium Level 4.0 MMOL/L (3.5-5.1) Chloride Level 106 MMOL/L (98-107) Carbon Dioxide Level 27 MMOL/L (21-32) Anion Gap 6 mmol/L (5-15) Blood Urea Nitrogen 14 mg/dL (7-18) Creatinine 1.2 MG/DL (0.55-1.30) Estimat Glomerular Filtration Rate > 60 mL/min (>60) Glucose Level 91 MG/DL (74-106) Calcium Level 8.6 MG/DL (8.5-10.1) Total Bilirubin 0.3 MG/DL (0.2-1.0) Aspartate Amino Transf (AST/SGOT) 20 U/L (15-37) Alanine Aminotransferase (ALT/SGPT) 13 U/L (12-78) Alkaline Phosphatase 77 U/L (46-116) Total Protein 6.5 G/DL (6.4-8.2) Albumin 3.0 G/DL (3.4-5.0) L Globulin 3.5 g/dL Albumin/Globulin Ratio 0.9 (1.0-2.7) L Height (Feet): 5 Height (Inches): 10.00 Weight (Pounds): 180 Medications Current Medications Medications (Trade) Dose Ordered Sig/Jimmy Route PRN Reason Start Time Stop Time Status Last Admin Dose Admin Abacavir Sulfate (Ziagen) 600 mg DAILY ORAL 02/10/20 15:00 03/11/20 14:59 02/11/20 08:32 Acetaminophen (Tylenol) 650 mg Q4H PRN ORAL Mild Pain (Pain Scale 1-3) 02/09/20 23:30 03/10/20 23:29 Acetaminophen (Tylenol) 650 mg Q4H PRN ORAL Temp >100.5 02/09/20 23:30 03/10/20 23:29 Al Hydroxide/Mg Hydroxide (Mylanta II) 30 ml Q6H PRN ORAL dyspepsia 02/09/20 23:30 03/10/20 23:29 Bisacodyl (Dulcolax) 10 mg HSPRN PRN RECTAL Constipation 02/09/20 23:30 05/09/20 23:29 Dextrose (Dextrose 50%) 25 ml Q30M PRN IV Hypoglycemia 02/09/20 23:30 05/09/20 23:29 Dextrose (Dextrose 50%) 50 ml Q30M PRN IV Hypoglycemia 02/09/20 23:30 05/09/20 23:29 Dextrose/Sodium Chloride 1,000 ml @ 100 mls/hr Q10H IV 02/10/20 00:24 03/11/20 00:23 02/11/20 16:26 Diphenhydramine HCl (Benadryl) 25 mg Q6H PRN ORAL Itching/Pruritis 02/09/20 23:30 03/10/20 23:29 Docusate Sodium (Colace) 100 mg EVERY 12 HOURS ORAL 02/10/20 09:00 03/11/20 08:59 02/11/20 21:25 Dolutegravir Sodium (Tivicay) 50 mg DAILY ORAL 02/10/20 15:00 05/10/20 14:59 02/11/20 08:32 Gadobutrol (Gadavist) 7.5 mmol NOW PRN IV Radiology Procedure 02/11/20 22:00 02/15/20 21:47 Heparin Sodium (Porcine) (Heparin 5000 units/ml) 5,000 units EVERY 8 HOURS SUBQ 02/10/20 06:00 03/26/20 05:59 02/12/20 06:24 Lamivudine (Epivir) 300 mg DAILY ORAL 02/10/20 15:00 03/11/20 14:59 02/11/20 08:31 Lisinopril (ZestriL) 10 mg DAILY ORAL 02/10/20 09:00 03/11/20 08:59 02/11/20 08:31 Lorazepam (Ativan 2mg/ml 1ml) 0.5 mg Q4H PRN IV For Anxiety 02/09/20 23:30 02/16/20 23:29 Magnesium Hydroxide (Mom) 30 ml HSPRN PRN ORAL Constipation 02/09/20 23:30 03/10/20 23:29 Metoclopramide HCl (Reglan) 10 mg Q6H PRN IVP Nausea & Vomiting 02/09/20 23:30 03/10/20 23:29 Morphine Sulfate (Morphine Sulfate) 2 mg Q4H PRN IVP Moderate Pain (Pain Scale 4-6) 02/09/20 23:30 02/16/20 23:29 02/11/20 14:10 Morphine Sulfate (Morphine Sulfate) 4 mg Q4H PRN IVP Severe Pain (Pain Scale 7-10) 02/09/20 23:30 02/16/20 23:29 Ondansetron HCl (Zofran) 4 mg Q6H PRN IVP Nausea & Vomiting 02/09/20 23:30 03/10/20 23:29 Polyethylene Glycol (Miralax) 17 gm HSPRN PRN ORAL Constipation 02/09/20 23:30 03/10/20 23:29 Temazepam (Restoril) 15 mg HSPRN PRN ORAL Insomnia 02/09/20 23:30 02/16/20 23:29 Thiamine HCl (Vitamin B1) 100 mg DAILY ORAL 02/10/20 09:00 03/11/20 08:59 02/11/20 08:31 Assessment/Plan Assessment/Plan: Hematology Consultation REQ MD: Cindy Rubin RFC: Groin mass DOS 02/12/2020 HPI This is a pleasant 59-year-old male with multi-medical comorbidities including HIV on medication who presented [facility] complaining of worsening left-sided testicular groin pain. Patient states known history of hernia for significant time but cannot recall how many years but states over the past few days become larger and uncomfortable on the left side. No nausea vomiting fever chills. Passing flatus. Having bowel movements. Has considered repair of the hernia before but felt it was small and did not need repair but now is getting better is considering repair. Imaging reviewed. Noted to have bowel that has thickening, therefore gi and onc consulted.Marked enlargement of the prostate gland that is significantly heterogeneous and indeterminate for malignancy and/or prostatitis. Nonspecific bladder wall thickening can be seen with infiltrative neoplastic, inflammatory or infectious etiologies Allergies: No Known Allergies (Unverified , 02/09/20) COVID-19 Screening Contact w/high risk pt: Yes Recent Travel to affected area: No Experienced COVID-19 symptoms?: No Medication History Scheduled Lisinopril* (Lisinopril*), 10 MG ORAL DAILY, (Reported) Thiamine Hcl* (Vitamin B-1*), 100 MG ORAL DAILY, (Reported) Scheduled PRN Acetaminophen* (Acetaminophen 325MG Tablet*), 650 MG ORAL Q6H PRN for Mild Pain (Pain Scale 1-3), (Reported) Miscellaneous Medications Abacavir/Dolutegravir/Lamivudi (Triumeq 600-50-300 mg Tablet), 1 EACH PO, ( Reported) Mv-Mn/Iron/Fa/Herbal Cmplx#190 (Vitamin D3 Complete Caplet), 2 EACH PO, ( Reported) Patient History History Provided By: Patient, Medical Record, PMD Healthcare decision maker Past Medical/Surgical History: (1) Renal cyst (2) Left inguinal hernia (3) Thickened small bowel (4) Common bile duct dilation Review of Symptoms General ROS: no weight loss or fever Psychological ROS: no depression or mood changes, no memory loss Ophthalmic ROS: no visual changes or eye irritation ENT ROS: no nasal congestion, hearing loss, dizziness Allergy and Immunology ROS: no allergic symptoms or urticaria Hematological and Lymphatic ROS: no swollen glands Endocrine ROS: no polyuria, polydipsia, weight changes Respiratory ROS: no cough, shortness of breath Cardiovascular ROS: no chest pain or dyspnea on exertion Gastrointestinal ROS: denies abdominal pain, bright red blood in stool. Musculoskeletal ROS: no myalgias or arthralgias Neurological ROS: no TIA or stroke symptoms Dermatological ROS: no new or changing skin lesions, rashes or pruritis Physical Exam Physical Exam General appearance: alert, cooperative, no distress, appears stated age Head: Normocephalic, without obvious abnormality, atraumatic Lungs: clear to auscultation bilaterally Heart: regular rate and rhythm, S1, S2 normal, no murmur Abdomen: soft, non-tender. Bowel sounds normal. No masses reducible scrotal left inguinal hernia + Extremities: extremities normal, atraumatic, no cyanosis or edema Neurologic: Grossly normal labs noted Imaging reviewed A/R # Elevated psa on admission approx 8.3, with a left Inguinal hernia --> likely nonspecific, would expect much larger >20 value if prostate ca --> will recommend urology eval with psa repeat in 6 months # Anemia likely of chronic disease, with underlying HIV --> meds noted, stated haart, per id --> hgb trend 11 --> anemia panel baseline ordered # Leukopenia also likely infection related --> hiv++ --> hep panel # Borderline biliary dilation / thickening with normal LFT --> as per gi care # Ill defined small bowel changes without associated symptoms, ? significance --> mrcp/mre of small bowel --> per surg eval --> per colo with gi as needed # Dvt ppx with heparin sq Appreciate consultation and dw Rn Aftab Jimenez MD Feb 12, 2020 07:14
[2020-02-12 08:00] VITALS: BP 149/90
[2020-02-12] MEDS: Thiamine 100mg tab ORAL SCH (08:47)
[2020-02-12] MEDS: Docusate 100mg cap ORAL SCH ×2 (08:47→21:00)
[2020-02-12] MEDS: Lisinopril 10mg tab ORAL SCH (08:47)
[2020-02-12] MEDS: Dolutegravir Sodium 50mg tab ORAL SCH (08:48)
[2020-02-12 09:12] LABS: % IRON SATURATION 46 % (15-50); IRON 86 ug/dL (50-175); TOTAL IRON BINDING CAPACITY 188 ug/dL (250-450)
[2020-02-12 09:15] LABS: FERRITIN 115 NG/ML (8-388)
--- NOTE | 2020-02-12 10:36 | General Progress Note ---
Assessment/Plan Assessment/Plan: Assessment/Plan: Assessment - (L) inguinal hernia - borderline biliary dilation / thickening with normal LFT, ? significance - ill defined small bowel changes without associated symptoms, ? significance - enlarged prostate with elevated PSA Recommendations - check MRCP of biliary tree - check MRE of small bowel - general surgery eval of inguinal hernia - eventual / outpatient colonoscopy (has not had one) - check stool OB Subjective ROS Limited/Unobtainable: Yes Allergies: Coded Allergies: No Known Allergies (Unverified , 02/09/20) Objective Last 24 Hour Vital Signs Date Time Temp Pulse Resp B/P (MAP) Pulse Ox O2 Delivery O2 Flow Rate FiO2 02/12/20 08:47 149/90 02/12/20 08:00 98.0 87 18 149/90 (109) 95 02/12/20 04:00 98.3 85 19 132/60 (84) 95 02/11/20 23:58 98.2 101 19 140/87 (104) 97 02/11/20 20:18 Room Air 02/11/20 20:00 98.8 98 19 135/94 (108) 100 02/11/20 16:00 98.0 70 19 135/77 (96) 98 02/11/20 14:40 98.7 02/11/20 12:00 98.7 100 19 143/83 (103) 97 Intake and Output 02/11/20 02/12/20 19:00 07:00 Intake Total 2000 ml 480 ml Output Total 700 ml Balance 2000 ml -220 ml Intake Oral 480 ml IV Total 1200 ml Other 800 ml Output Urine Total 700 ml Laboratory Tests 02/12/20 05:15: White Blood Count 3.7L, Red Blood Count 3.42L, Hemoglobin 11.1L, Hematocrit 34.5L, Mean Corpuscular Volume 101H, Mean Corpuscular Hemoglobin 32.4H, Mean Corpuscular Hemoglobin Concent 32.0, Red Cell Distribution Width 12.4, Platelet Count 185, Mean Platelet Volume 6.6, Neutrophils (%) (Auto) 40.0L, Lymphocytes ( %) (Auto) 44.7, Monocytes (%) (Auto) 8.4, Eosinophils (%) (Auto) 5.5H, Basophils (%) (Auto) 1.4, Sodium Level 139, Potassium Level 4.0, Chloride Level 106, Carbon Dioxide Level 27, Anion Gap 6, Blood Urea Nitrogen 14, Creatinine 1.2, Estimat Glomerular Filtration Rate > 60, Glucose Level 91, Calcium Level 8.6, Total Bilirubin 0.3, Aspartate Amino Transf (AST/SGOT) 20, Alanine Aminotransferase (ALT/SGPT) 13, Alkaline Phosphatase 77, Total Protein 6.5, Albumin 3.0L, Globulin 3.5, Albumin/Globulin Ratio 0.9L 02/12/20 08:30: Iron Level 86, Total Iron Binding Capacity 188L, Percent Iron Saturation 46, Unsaturated Iron Binding 102L, Ferritin 115 Height (Feet): 5 Height (Inches): 10.00 Weight (Pounds): 180 General Appearance: alert EENT: PERRL/EOMI Neck: normal alignment Cardiovascular: normal rate Respiratory/Chest: decreased breath sounds Abdomen: normal bowel sounds, non tender, soft Extremities: non-tender Tyler Gallo MD Feb 12, 2020 10:36
[2020-02-12 12:00] VITALS: BP 137/87
[2020-02-12] MEDS ORDERED: Gadavist 7.5mMol/7.5ml vial IV PRN (12:45)
[2020-02-12 16:00] VITALS: BP 136/82
--- NOTE | 2020-02-12 16:52 | General Progress Note ---
Assessment/Plan Status: stable Assessment/Plan: 59-year-old male SNF resident ([facility]) w/ MMP including Hx HIV on ART, HTN , L inguinal hernia who presented to the ED with left tisticular pain and increased left inguinal hernia fullness. Pt noted to have several concerning features on CT abd for possible malignancy. #Left Testicular pain #Extra hepatic bili duct dilation #Enlarged, heterogeneic Prostate #Bladder wall thickening #Small bowel wall thickening - hold off on abx for now as pt seems non toxic - General surgery consulted - GI consulted--MRCP and MRE ordered tro further eval delia lesley dilatation (to be done once COVID 19 ruled out) - Heme onc consult, Dr Jimenez - PSA elevated, f/u [facility], CA 19-9 - Cont 2g Na diet - Pain control - Supportive care #Left inguinal hernia - general surgery consulted- appreciate recs, stable for outpt followup, easily reducible #HIV on art #HTN - ID consulted for assessment and mgt of HIV regimen, Dr Kim - Cont HAART - send CD4 & VL FENPPX DVTPPX: scds GI PPX: Fluids: Diet: 2g na Lines: PT/OT: Code status: full Dispo: SNF ([facility]) Reason for Continued Hospitalization: Workup and mgt of possible malignancy I spent 35 minutes spent on this encounter w/ >50% on care/coordination and counselnig. Discussed with RN and consultants named above. Time of note may not reflect time patient was seen. Subjective Date patient seen: Feb 12, 2020 Time patient seen: 16:00 ROS Limited/Unobtainable: No Constitutional: Reports: no symptoms HEENT: Reports: no symptoms Cardiovascular: Reports: no symptoms Respiratory: Reports: no symptoms Gastrointestinal/Abdominal: Reports: no symptoms Genitourinary: Reports: no symptoms Neurologic/Psychiatric: Reports: no symptoms Endocrine: Reports: no symptoms Hematologic/Lymphatic: Reports: no symptoms Allergies: Coded Allergies: No Known Allergies (Unverified , 02/09/20) Subjective No acute on events Awaiting MRE and MRPC per GI Pain controlled Tolerating diet +flatus and BM Denies f/c, n/v,d /c, chest pain, SOB Objective Last 24 Hour Vital Signs Date Time Temp Pulse Resp B/P (MAP) Pulse Ox O2 Delivery O2 Flow Rate FiO2 02/12/20 16:00 98.0 86 18 136/82 (100) 98 02/12/20 12:00 97.0 85 18 137/87 (104) 97 02/12/20 09:00 Room Air 02/12/20 08:47 149/90 02/12/20 08:00 98.0 87 18 149/90 (109) 95 02/12/20 04:00 98.3 85 19 132/60 (84) 95 02/11/20 23:58 98.2 101 19 140/87 (104) 97 02/11/20 20:18 Room Air 02/11/20 20:00 98.8 98 19 135/94 (108) 100 Intake and Output 02/11/20 02/12/20 19:00 07:00 Intake Total 2000 ml 480 ml Output Total 700 ml Balance 2000 ml -220 ml Intake Oral 480 ml IV Total 1200 ml Other 800 ml Output Urine Total 700 ml Laboratory Tests 02/12/20 05:15: White Blood Count 3.7L, Red Blood Count 3.42L, Hemoglobin 11.1L, Hematocrit 34.5L, Mean Corpuscular Volume 101H, Mean Corpuscular Hemoglobin 32.4H, Mean Corpuscular Hemoglobin Concent 32.0, Red Cell Distribution Width 12.4, Platelet Count 185, Mean Platelet Volume 6.6, Neutrophils (%) (Auto) 40.0L, Lymphocytes ( %) (Auto) 44.7, Monocytes (%) (Auto) 8.4, Eosinophils (%) (Auto) 5.5H, Basophils (%) (Auto) 1.4, Sodium Level 139, Potassium Level 4.0, Chloride Level 106, Carbon Dioxide Level 27, Anion Gap 6, Blood Urea Nitrogen 14, Creatinine 1.2, Estimat Glomerular Filtration Rate > 60, Glucose Level 91, Calcium Level 8.6, Total Bilirubin 0.3, Aspartate Amino Transf (AST/SGOT) 20, Alanine Aminotransferase (ALT/SGPT) 13, Alkaline Phosphatase 77, Total Protein 6.5, Albumin 3.0L, Globulin 3.5, Albumin/Globulin Ratio 0.9L 02/12/20 08:30: Iron Level 86, Total Iron Binding Capacity 188L, Percent Iron Saturation 46, Unsaturated Iron Binding 102L, Ferritin 115 Height (Feet): 5 Height (Inches): 10.00 Weight (Pounds): 180 Objective General: alert, cooperative, no distress, appears stated age Head: normocephalic, without obvious abnormality, atraumatic Eyes: conjunctivae/corneas clear. PERRL, EOM's intact Throat: lips, mucosa, and tongue normal. MMM Neck: supple, symmetrical, trachea midline, and no JVD Lungs: clear to auscultation bilaterally Heart: regular rate and rhythm, S1, S2 normal, no murmur, click, rub or gallop Abdomen: soft, non-tender, non-distended, bowel sounds normal; no masses or organomegaly Reducible L inguinal scrotal hernia, no erythema or signs of incarceration/ strangulation Extremities: extremities normal, atraumatic, no cyanosis or edema Pulses: 2+ and symmetric Skin: skin color, texture, turgor normal; no rashes or lesions Neurologic: grossly normal, no focal deficits Moody Flores M.D. Feb 12, 2020 16:52
[2020-02-12 20:00] VITALS: BP 151/89
[2020-02-12] MEDS ORDERED: Meningococcal Polysacc Vaccine IM ONE (21:00)
--- NOTE | 2020-02-12 21:29 | Surgery Progress Note ---
Surgery Progress Note Subjective Additional Comments no acute events tolerating diet +flatus and bowel function no n/v/f/c pending MRCP Objective Last 24 Hour Vital Signs Date Time Temp Pulse Resp B/P (MAP) Pulse Ox O2 Delivery O2 Flow Rate FiO2 02/12/20 16:00 98.0 86 18 136/82 (100) 98 02/12/20 12:00 97.0 85 18 137/87 (104) 97 02/12/20 09:00 Room Air 02/12/20 08:47 149/90 02/12/20 08:00 98.0 87 18 149/90 (109) 95 02/12/20 04:00 98.3 85 19 132/60 (84) 95 02/11/20 23:58 98.2 101 19 140/87 (104) 97 I&O Intake and Output 02/11/20 02/12/20 19:00 07:00 Intake Total 2000 ml 480 ml Output Total 700 ml Balance 2000 ml -220 ml Intake Oral 480 ml IV Total 1200 ml Other 800 ml Output Urine Total 700 ml Cardiovascular: RSR Respiratory: clear Abdomen: soft, flat, non-tender, present bowel sounds, other Extremities: no edema, no tenderness, no cyanosis Laboratory Tests Test 02/12/20 05:15 02/12/20 08:30 02/12/20 16:50 White Blood Count 3.7 K/UL (4.8-10.8) L Red Blood Count 3.42 M/UL (4.70-6.10) L Hemoglobin 11.1 G/DL (14.2-18.0) L Hematocrit 34.5 % (42.0-52.0) L Mean Corpuscular Volume 101 FL (80-99) H Mean Corpuscular Hemoglobin 32.4 PG (27.0-31.0) H Mean Corpuscular Hemoglobin Concent 32.0 G/DL (32.0-36.0) Red Cell Distribution Width 12.4 % (11.6-14.8) Platelet Count 185 K/UL (150-450) Mean Platelet Volume 6.6 FL (6.5-10.1) Neutrophils (%) (Auto) 40.0 % (45.0-75.0) L Lymphocytes (%) (Auto) 44.7 % (20.0-45.0) Monocytes (%) (Auto) 8.4 % (1.0-10.0) Eosinophils (%) (Auto) 5.5 % (0.0-3.0) H Basophils (%) (Auto) 1.4 % (0.0-2.0) Sodium Level 139 MMOL/L (136-145) Potassium Level 4.0 MMOL/L (3.5-5.1) Chloride Level 106 MMOL/L (98-107) Carbon Dioxide Level 27 MMOL/L (21-32) Anion Gap 6 mmol/L (5-15) Blood Urea Nitrogen 14 mg/dL (7-18) Creatinine 1.2 MG/DL (0.55-1.30) Estimat Glomerular Filtration Rate > 60 mL/min (>60) Glucose Level 91 MG/DL (74-106) Calcium Level 8.6 MG/DL (8.5-10.1) Total Bilirubin 0.3 MG/DL (0.2-1.0) Aspartate Amino Transf (AST/SGOT) 20 U/L (15-37) Alanine Aminotransferase (ALT/SGPT) 13 U/L (12-78) Alkaline Phosphatase 77 U/L (46-116) Total Protein 6.5 G/DL (6.4-8.2) Albumin 3.0 G/DL (3.4-5.0) L Globulin 3.5 g/dL Albumin/Globulin Ratio 0.9 (1.0-2.7) L Iron Level 86 ug/dL (50-175) Total Iron Binding Capacity 188 ug/dL (250-450) L Percent Iron Saturation 46 % (15-50) Unsaturated Iron Binding 102 ug/dL (112-346) L Ferritin 115 NG/ML (8-388) HIV-1 RNA (PCR) log10 Value Pending HIV-1 RNA Ultraquantitative (PCR) Pending Plan Problems: (1) Renal cyst (2) Left inguinal hernia Assessment & Plan: Patient with a large reducible scrotal left inguinal hernia. No signs or symptoms of obstructive symptoms. Not incarcerated not strangulated by any means I was able to easily reduce the hernia at the bedside without complication. Identified findings with the patient discussed at bedside. I strongly recommend patient follow-up immediately upon outpatient with his PCP followed by surgeon within his network for considerations of elective left inguinal hernia repair as it currently still reducible non-complicated. I sized him that there is a potential given the size of this thing will become more symptomatic larger or more complicated in the future and the sooner he gets repaired the better. He expressed understanding and says now that it is bigger he will seek repair. ABDOMEN: Liver: Indeterminate at subcentimeter low attenuation foci in the liver parenchyma. Gallbladder and bile ducts: The gallbladder is contracted. Biliary ductal dilatation with the extrahepatic biliary tree measuring up to 7 mm. There appears to be wall thickening of the common bile duct that is indeterminate for malignancy or infection. No calcified stones. Pancreas: Unremarkable. No mass. No ductal dilation. Spleen: Unremarkable. No splenomegaly. Adrenals: Unremarkable. No mass. Kidneys and ureters: Very large partially exophytic anterior left renal cyst measuring up to 7.6 cm. No evidence of obstructive uropathy. Stomach and bowel: Negative for high-grade lower GI tract obstruction. There are segments of small bowel demonstrating at least a mild wall thickening. Negative for evidence of pneumatosis. There is a large left inguinal hernia extending into the scrotum containing multiple loops of bowel as well as mesenteric vessels. No significant obstruction secondary to the hernia. Currently no evidence of bowel strangulation. PELVIS: Appendix: No findings to suggest acute appendicitis. Bladder: Indeterminate moderate bladder wall thickening. Reproductive: Marked heterogeneous enlargement of the prostate gland indeterminate for malignancy and/or prostatitis. ABDOMEN and PELVIS: Intraperitoneal space: Unremarkable. No free air. No significant fluid collection. Bones/joints: No acute fracture. No dislocation. Soft tissues: See above. Vasculature: Unremarkable. No abdominal aortic aneurysm. Lymph nodes: Mild indeterminate retroperitoneal lymphadenopathy. Significant indeterminate bilateral inguinal lymphadenopathy. IMPRESSION: Biliary ductal dilatation with question of extrahepatic biliary tree wall thickening indeterminate for a distal obstructing lesion, neoplasm or cholangitis. Tiny nonspecific and indeterminate low attenuation foci in the liver parenchyma. Small bowel wall thickening is nonspecific but can be seen with infectious or inflammatory enteritis. Marked enlargement of the prostate gland that is significantly heterogeneous and indeterminate for malignancy and/or prostatitis. Nonspecific bladder wall thickening can be seen with infiltrative neoplastic, inflammatory or infectious etiologies. Large left inguinal hernia without evidence of bowel obstruction or strangulation. Indeterminate lymphadenopathy as above. (3) Thickened small bowel (4) Common bile duct dilation Assessment & Plan: discussed with GI appreciate input labs noted imaging reviewed agree with GI - MRCP with biliary Adan Farah Feb 12, 2020 21:29
[2020-02-13] VITALS: BP 143/81
[2020-02-13 04:00] VITALS: BP 146/85
[2020-02-13] MEDS: Heparin 5000 units/ml inj SUBQ SCH ×3 (05:01→21:47)
[2020-02-13 05:52] LABS: BASOPHILS % (AUTO) 1.5 % (0.0-2.0); EOSINOPHILS % (AUTO) 5.1 % (0.0-3.0); HEMATOCRIT 34.5 % (42.0-52.0); LYMPHOCYTES % (AUTO) 45.5 % (20.0-45.0); MEAN CORPUSCULAR VOLUME 103 FL (80-99); MONOCYTES % (AUTO) 7.1 % (1.0-10.0); NEUTROPHILS % (AUTO) 40.9 % (45.0-75.0); PLATELET COUNT 208 K/UL (150-450); RED BLOOD COUNT 3.35 M/UL (4.70-6.10); RED CELL DISTRIBUTION WIDTH 12.7 % (11.6-14.8); WHITE BLOOD COUNT 4.2 K/UL (4.8-10.8)
[2020-02-13 06:30] LABS: ALANINE AMINOTRANSFERASE 20 U/L (12-78); ALBUMIN/GLOBULIN RATIO 0.9 (1.0-2.7); ALKALINE PHOSPHATASE 79 U/L (46-116); ANION GAP 7 mmol/L (5-15); ASPARTATE AMINO TRANSFERASE 16 U/L (15-37); BILIRUBIN,TOTAL 0.2 MG/DL (0.2-1.0); BLOOD UREA NITROGEN 18 mg/dL (7-18); CALCIUM 8.5 MG/DL (8.5-10.1); CARBON DIOXIDE 27 MMOL/L (21-32); CHLORIDE 108 MMOL/L (98-107); CREATININE 1.2 MG/DL (0.55-1.30); SODIUM 142 MMOL/L (136-145)
--- NOTE | 2020-02-13 07:15 | Hematology/Onc Progress Note ---
Assessment/Plan Assessment/Plan A/R # Elevated psa on admission approx 8.3, with a left Inguinal hernia --> likely nonspecific, would expect much larger >20 value if prostate ca --> will recommend urology eval with psa repeat in 6 months --> uro eval prn # Anemia likely of chronic disease, with underlying HIV --> meds noted, stated haart, per id --> hgb trend 11 --> anemia panel baseline ordered # Leukopenia also likely infection related --> hiv++ --> hep panel # Borderline biliary dilation / thickening with normal LFT --> as per gi care # Ill defined small bowel changes without associated symptoms, ? significance --> mrcp/mre of small bowel --> per surg eval --> per colo with gi as needed # Dvt ppx with heparin sq Appreciate consultation and dw Rn Subjective Cardiovascular: Denies: no symptoms, chest pain, edema, irregular heart rate, lightheadedness, palpitations, syncope, other Respiratory: Denies: no symptoms, cough, shortness of breath, SOB with excertion, SOB at rest, sputum, wheezing, other Genitourinary: Denies: no symptoms, burning, discharge, frequency, flank pain, hematuria, incontinence, pain, urgency, other Neurologic/Psychiatric: Denies: no symptoms, anxiety, depressed, emotional problems, headache, numbness, paresthesia, pre-existing deficit, seizure, tingling, tremors, weakness, other Endocrine: Denies: no symptoms, excessive sweating, flushing, intolerance to cold, intolerance to heat, increased hunger, increased thirst, increased urine, unexplained weight gain, unexplained weight loss, other Hematologic/Lymphatic: Denies: no symptoms, anemia, easy bleeding, easy bruising, adenopathy, other Allergies: Coded Allergies: No Known Allergies (Unverified , 02/09/20) Subjective 02/12 no events, no bleeding, pending mrcp, no night sweats Objective Objective Current Medications Medications (Trade) Dose Ordered Sig/Jimmy Route PRN Reason Start Time Stop Time Status Last Admin Dose Admin Abacavir Sulfate (Ziagen) 600 mg DAILY ORAL 02/10/20 15:00 03/11/20 14:59 02/12/20 08:47 Acetaminophen (Tylenol) 650 mg Q4H PRN ORAL Mild Pain (Pain Scale 1-3) 02/09/20:30 03/10/20 23:29 Acetaminophen (Tylenol) 650 mg Q4H PRN ORAL Temp >100.5 02/09/20 23:30 03/10/20 23:29 Al Hydroxide/Mg Hydroxide (Mylanta II) 30 ml Q6H PRN ORAL dyspepsia 02/09/20 23:30 03/10/20 23:29 Bisacodyl (Dulcolax) 10 mg HSPRN PRN RECTAL Constipation 02/09/20 23:30 05/09/20 23:29 Dextrose (Dextrose 50%) 25 ml Q30M PRN IV Hypoglycemia 02/09/20 23:30 05/09/20 23:29 Dextrose (Dextrose 50%) 50 ml Q30M PRN IV Hypoglycemia 02/09/20 23:30 05/09/20 23:29 Dextrose/Sodium Chloride 1,000 ml @ 100 mls/hr Q10H IV 02/10/20 00:24 03/11/20 00:23 02/12/20 21:47 Diphenhydramine HCl (Benadryl) 25 mg Q6H PRN ORAL Itching/Pruritis 02/09/20 23:30 03/10/20 23:29 Docusate Sodium (Colace) 100 mg EVERY 12 HOURS ORAL 02/10/20 09:00 03/11/20 08:59 02/12/20 21:00 Dolutegravir Sodium (Tivicay) 50 mg DAILY ORAL 02/10/20 15:00 05/10/20 14:59 02/12/20 08:48 Gadobutrol (Gadavist) 7.5 mmol NOW PRN IV Radiology Procedure 02/11/20 22:00 02/15/20 21:47 Gadobutrol (Gadavist) 7.5 mmol PRN PRN IV Radiology Procedure 02/12/20 12:45 02/16/20 12:39 Heparin Sodium (Porcine) (Heparin 5000 units/ml) 5,000 units EVERY 8 HOURS SUBQ 02/10/20 06:00 03/26/20 05:59 02/13/20 05:01 Lamivudine (Epivir) 300 mg DAILY ORAL 02/10/20 15:00 03/11/20 14:59 02/12/20 08:47 Lisinopril (ZestriL) 10 mg DAILY ORAL 02/10/20 09:00 03/11/20 08:59 02/12/20 08:47 Lorazepam (Ativan 2mg/ml 1ml) 0.5 mg Q4H PRN IV For Anxiety 02/09/20 23:30 02/16/20 23:29 Magnesium Hydroxide (Mom) 30 ml HSPRN PRN ORAL Constipation 02/09/20 23:30 03/10/20 23:29 Metoclopramide HCl (Reglan) 10 mg Q6H PRN IVP Nausea & Vomiting 02/09/20 23:30 03/10/20 23:29 Morphine Sulfate (Morphine Sulfate) 2 mg Q4H PRN IVP Moderate Pain (Pain Scale 4-6) 02/09/20 23:30 02/16/20 23:29 02/11/20 14:10 Morphine Sulfate (Morphine Sulfate) 4 mg Q4H PRN IVP Severe Pain (Pain Scale 7-10) 02/09/20 23:30 02/16/20 23:29 Ondansetron HCl (Zofran) 4 mg Q6H PRN IVP Nausea & Vomiting 02/09/20 23:30 03/10/20 23:29 Polyethylene Glycol (Miralax) 17 gm HSPRN PRN ORAL Constipation 02/09/20 23:30 03/10/20 23:29 Temazepam (Restoril) 15 mg HSPRN PRN ORAL Insomnia 02/09/20 23:30 02/16/20 23:29 Thiamine HCl (Vitamin B1) 100 mg DAILY ORAL 02/10/20 09:00 03/11/20 08:59 02/12/20 08:47 Last 24 Hour Vital Signs Date Time Temp Pulse Resp B/P (MAP) Pulse Ox O2 Delivery O2 Flow Rate FiO2 02/13/20 04:00 98.2 79 18 146/85 (105) 97 02/13/20 00:00 98.5 76 16 143/81 (101) 98 02/12/20 21:00 Room Air 02/12/20 20:00 98.3 83 18 151/89 (109) 97 02/12/20 16:00 98.0 86 18 136/82 (100) 98 02/12/20 12:00 97.0 85 18 137/87 (104) 97 02/12/20 09:00 Room Air 02/12/20 08:47 149/90 02/12/20 08:00 98.0 87 18 149/90 (109) 95 02/12/20 04:00 98.3 85 19 132/60 (84) 95 02/11/20 23:58 98.2 101 19 140/87 (104) 97 02/11/20 20:18 Room Air 02/11/20 20:00 98.8 98 19 135/94 (108) 100 02/11/20 16:00 98.0 70 19 135/77 (96) 98 02/11/20 14:40 98.7 02/11/20 12:00 98.7 100 19 143/83 (103) 97 02/11/20 09:00 Room Air 02/11/20 08:31 133/78 02/11/20 08:00 98.3 78 19 133/78 (96) 95 Intake and Output 02/12/20 02/13/20 19:00 07:00 Intake Total 930 ml 1580 ml Output Total 1000 ml Balance -70 ml 1580 ml Intake Oral 930 ml 480 ml IV Total 1100 ml Output Urine Total 1000 ml # Voids 2 Labs Test 02/10/20 13:49 02/11/20 04:00 02/12/20 05:15 02/12/20 08:30 White Blood Count 3.0 x10E3/uL (3.4-10.8) 3.9 K/UL (4.8-10.8) 3.7 K/UL (4.8-10.8) Lymphocytes 45 % (Not Estab.) Nucleated Red Blood Cells (.) Carcinoembryonic Antigen 2.3 ng/mL (0.0-4.7) Prostate Specific Antigen 8.23 ng/mL (0.13-4.0) Free Prostate Specific Antigen 1.66 ng/mL (N/A) Percent Free Prostate Specific Ag 19.5 % (.) Prostate Specific Antigen Total 8.5 ng/mL (0.0-4.0) Absolute Lymphocytes (Cell Immunity 1.2 x10E3/uL (0.7-3.1) Percent CD3 Cells 82.0 % (57.5-86.2) Absolute CD3 Count 984 /uL (622-2402) Percent CD4 Cells 54.6 % (30.8-58.5) Absolute CD4 Count 655 /uL (359-1519) T-Lymphocyte CD4/CD8 Ratio 1.78 (0.92-3.72) Percent CD8 Cells 30.6 % (12.0-35.5) Absolute CD8 Count 367 /uL (109-897) Rapid Plasma Reagin Non reactive (Non Reactive) Red Blood Count 3.33 M/UL (4.70-6.10) 3.42 M/UL (4.70-6.10) Hemoglobin 10.9 G/DL (14.2-18.0) 11.1 G/DL (14.2-18.0) Hematocrit 33.8 % (42.0-52.0) 34.5 % (42.0-52.0) Mean Corpuscular Volume 102 FL (80-99) 101 FL (80-99) Mean Corpuscular Hemoglobin 32.9 PG (27.0-31.0) 32.4 PG (27.0-31.0) Mean Corpuscular Hemoglobin Concent 32.4 G/DL (32.0-36.0) 32.0 G/DL (32.0-36.0) Red Cell Distribution Width 12.6 % (11.6-14.8) 12.4 % (11.6-14.8) Platelet Count 208 K/UL (150-450) 185 K/UL (150-450) Mean Platelet Volume 7.7 FL (6.5-10.1) 6.6 FL (6.5-10.1) Neutrophils (%) (Auto) 37.6 % (45.0-75.0) 40.0 % (45.0-75.0) Lymphocytes (%) (Auto) 48.3 % (20.0-45.0) 44.7 % (20.0-45.0) Monocytes (%) (Auto) 6.7 % (1.0-10.0) 8.4 % (1.0-10.0) Eosinophils (%) (Auto) 5.5 % (0.0-3.0) 5.5 % (0.0-3.0) Basophils (%) (Auto) 2.0 % (0.0-2.0) 1.4 % (0.0-2.0) Sodium Level 140 MMOL/L (136-145) 139 MMOL/L (136-145) Potassium Level 4.0 MMOL/L (3.5-5.1) 4.0 MMOL/L (3.5-5.1) Chloride Level 105 MMOL/L (98-107) 106 MMOL/L (98-107) Carbon Dioxide Level 30 MMOL/L (21-32) 27 MMOL/L (21-32) Anion Gap 5 mmol/L (5-15) 6 mmol/L (5-15) Blood Urea Nitrogen 14 mg/dL (7-18) 14 mg/dL (7-18) Creatinine 1.3 MG/DL (0.55-1.30) 1.2 MG/DL (0.55-1.30) Estimat Glomerular Filtration Rate > 60 mL/min (>60) > 60 mL/min (>60) Glucose Level 76 MG/DL (74-106) 91 MG/DL (74-106) Calcium Level 8.4 MG/DL (8.5-10.1) 8.6 MG/DL (8.5-10.1) Total Bilirubin 0.2 MG/DL (0.2-1.0) 0.3 MG/DL (0.2-1.0) Aspartate Amino Transf (AST/SGOT) 17 U/L (15-37) 20 U/L (15-37) Alanine Aminotransferase (ALT/SGPT) 13 U/L (12-78) 13 U/L (12-78) Alkaline Phosphatase 78 U/L (46-116) 77 U/L (46-116) Total Protein 6.4 G/DL (6.4-8.2) 6.5 G/DL (6.4-8.2) Albumin 3.1 G/DL (3.4-5.0) 3.0 G/DL (3.4-5.0) Globulin 3.3 g/dL 3.5 g/dL Albumin/Globulin Ratio 0.9 (1.0-2.7) 0.9 (1.0-2.7) Iron Level 86 ug/dL (50-175) Total Iron Binding Capacity 188 ug/dL (250-450) Percent Iron Saturation 46 % (15-50) Unsaturated Iron Binding 102 ug/dL (112-346) Ferritin 115 NG/ML (8-388) Test 02/12/20 16:50 02/13/20 04:00 White Blood Count 4.2 K/UL (4.8-10.8) Red Blood Count 3.35 M/UL (4.70-6.10) Hemoglobin 11.0 G/DL (14.2-18.0) Hematocrit 34.5 % (42.0-52.0) Mean Corpuscular Volume 103 FL (80-99) Mean Corpuscular Hemoglobin 32.9 PG (27.0-31.0) Mean Corpuscular Hemoglobin Concent 31.9 G/DL (32.0-36.0) Red Cell Distribution Width 12.7 % (11.6-14.8) Platelet Count 208 K/UL (150-450) Mean Platelet Volume 7.2 FL (6.5-10.1) Neutrophils (%) (Auto) 40.9 % (45.0-75.0) Lymphocytes (%) (Auto) 45.5 % (20.0-45.0) Monocytes (%) (Auto) 7.1 % (1.0-10.0) Eosinophils (%) (Auto) 5.1 % (0.0-3.0) Basophils (%) (Auto) 1.5 % (0.0-2.0) Sodium Level 142 MMOL/L (136-145) Potassium Level 4.0 MMOL/L (3.5-5.1) Chloride Level 108 MMOL/L (98-107) Carbon Dioxide Level 27 MMOL/L (21-32) Anion Gap 7 mmol/L (5-15) Blood Urea Nitrogen 18 mg/dL (7-18) Creatinine 1.2 MG/DL (0.55-1.30) Estimat Glomerular Filtration Rate > 60 mL/min (>60) Glucose Level 91 MG/DL (74-106) Calcium Level 8.5 MG/DL (8.5-10.1) Total Bilirubin 0.2 MG/DL (0.2-1.0) Aspartate Amino Transf (AST/SGOT) 16 U/L (15-37) Alanine Aminotransferase (ALT/SGPT) 20 U/L (12-78) Alkaline Phosphatase 79 U/L (46-116) Total Protein 6.4 G/DL (6.4-8.2) Albumin 3.0 G/DL (3.4-5.0) Globulin 3.4 g/dL Albumin/Globulin Ratio 0.9 (1.0-2.7) Height (Feet): 5 Height (Inches): 10.00 Weight (Pounds): 180 Objective Physical Exam General appearance: alert, cooperative, no distress, appears stated age Head: Normocephalic, without obvious abnormality, atraumatic Lungs: clear to auscultation bilaterally Heart: regular rate and rhythm, S1, S2 normal, no murmur Abdomen: soft, non-tender. Bowel sounds normal. No masses reducible scrotal left inguinal hernia + Extremities: extremities normal, atraumatic, no cyanosis or edema Neurologic: Grossly normal Aftab Jimenez MD Feb 13, 2020 07:15
[2020-02-13 08:00] VITALS: BP 134/72
[2020-02-13] MEDS: Docusate 100mg cap ORAL SCH ×2 (09:49→20:18)
[2020-02-13] MEDS: Lisinopril 10mg tab ORAL SCH (09:49)
[2020-02-13] MEDS: Thiamine 100mg tab ORAL SCH (09:49)
[2020-02-13] MEDS: Dolutegravir Sodium 50mg tab ORAL SCH (09:50)
[2020-02-13] MEDS: D5NS 1,000 ML IV SCH ×2 (09:51→17:51)
--- NOTE | 2020-02-13 09:54 | General Progress Note ---
Assessment/Plan Status: stable Assessment/Plan: Assessment/Plan: Assessment - (L) inguinal hernia - borderline biliary dilation / thickening with normal LFT, ? significance - ill defined small bowel changes without associated symptoms, ? significance - enlarged prostate with elevated PSA Recommendations - check MRCP of biliary tree>> pending for today - check MRE of small bowel - general surgery eval of inguinal hernia - eventual / outpatient colonoscopy (has not had one) - check stool OB Subjective ROS Limited/Unobtainable: No Allergies: Coded Allergies: No Known Allergies (Unverified , 02/09/20) Objective Last 24 Hour Vital Signs Date Time Temp Pulse Resp B/P (MAP) Pulse Ox O2 Delivery O2 Flow Rate FiO2 02/13/20 09:49 134/72 02/13/20 08:00 97.9 89 18 134/72 (92) 96 02/13/20 04:00 98.2 79 18 146/85 (105) 97 02/13/20 00:00 98.5 76 16 143/81 (101) 98 02/12/20 21:00 Room Air 02/12/20 20:00 98.3 83 18 151/89 (109) 97 02/12/20 16:00 98.0 86 18 136/82 (100) 98 02/12/20 12:00 97.0 85 18 137/87 (104) 97 Intake and Output 02/12/20 02/13/20 19:00 07:00 Intake Total 930 ml 1580 ml Output Total 1000 ml Balance -70 ml 1580 ml Intake Oral 930 ml 480 ml IV Total 1100 ml Output Urine Total 1000 ml # Voids 2 Laboratory Tests 02/12/20 16:50: HIV-1 RNA (PCR) log10 Value [Pending], HIV-1 RNA Ultraquantitative (PCR) [ Pending] 02/13/20 04:00: White Blood Count 4.2L, Red Blood Count 3.35L, Hemoglobin 11.0L, Hematocrit 34.5L, Mean Corpuscular Volume 103H, Mean Corpuscular Hemoglobin 32.9H, Mean Corpuscular Hemoglobin Concent 31.9L, Red Cell Distribution Width 12.7, Platelet Count 208, Mean Platelet Volume 7.2, Neutrophils (%) (Auto) 40.9L, Lymphocytes (%) (Auto) 45.5H, Monocytes (%) (Auto) 7.1, Eosinophils (%) (Auto) 5.1H, Basophils (%) (Auto) 1.5, Sodium Level 142, Potassium Level 4.0, Chloride Level 108H, Carbon Dioxide Level 27, Anion Gap 7, Blood Urea Nitrogen 18, Creatinine 1.2, Estimat Glomerular Filtration Rate > 60, Glucose Level 91, Calcium Level 8.5, Total Bilirubin 0.2, Aspartate Amino Transf (AST/SGOT) 16, Alanine Aminotransferase (ALT/SGPT) 20, Alkaline Phosphatase 79, Total Protein 6.4, Albumin 3.0L, Globulin 3.4, Albumin/Globulin Ratio 0.9L Height (Feet): 5 Height (Inches): 10.00 Weight (Pounds): 180 General Appearance: no apparent distress EENT: normal ENT inspection Neck: normal alignment Cardiovascular: normal rate Respiratory/Chest: decreased breath sounds Abdomen: normal bowel sounds, non tender, soft Extremities: non-tender Tyler Gallo MD Feb 13, 2020 09:54
[2020-02-13 12:00] VITALS: BP 133/81
--- NOTE | 2020-02-13 15:38 | Diagnostic Imaging Report ---
EXAM: MRI MRI Abdomen wo/w Contrast TECHNIQUE: MR examination of the abdomen includes coronal T1 and fat-suppressed T2, axial T1 in and out of phase spoiled gradient sequences, and T2 sequences with and without fat suppression. Coronal 3-D MRCP sequence also obtained. Following administration of contrast, additional axial and coronal T1 images with fat suppression obtained. CLINICAL HISTORY: Abdominal pain. COMPARISON: CT abdomen and pelvis 02/09/2020 FINDINGS: The liver and spleen appear homogeneous. Gallbladder is without sludge or stone. There is no signs of ductal dilatation. CBD is 6 mm with no filling defect demonstrated. The pancreas is unremarkable. Adrenals are normal. Large simple cyst of the left kidney noted as seen on prior CT. No hydronephrosis seen bilaterally. There is no signs of bowel distention. No ascites demonstrated. There is no adenopathy noted. There is an enlarged prostate with mass effect on the base of the bladder. Large left inguinal hernia and thinning bowel and fat as seen on prior CT. IMPRESSION: NO SIGN OF ACUTE DISEASE. NO BILIARY DILATATION OR DUCTAL STONE DEMONSTRATED. LARGE LEFT RENAL CYST. ENLARGED PROSTATE WITH MASS EFFECT ON THE BLADDER. LARGE LEFT INGUINAL HERNIA. NO SIGN OF OBSTRUCTION.
--- NOTE | 2020-02-13 15:43 | General Progress Note ---
Assessment/Plan Problem List: (1) Left inguinal hernia ICD Codes: K40.90 - Unilateral inguinal hernia, without obstruction or gangrene , not specified as recurrent SNOMED: 315134587 (2) Thickened small bowel ICD Codes: K63.9 - Disease of intestine, unspecified SNOMED: 068817791 (3) Common bile duct dilation ICD Codes: K83.8 - Other specified diseases of biliary tract SNOMED: 846506556 (4) Testicular mass ICD Codes: N50.89 - Other specified disorders of the male genital organs SNOMED: 50320882 Status: stable Assessment/Plan: 59-year-old male SNF resident ([facility]) w/ MMP including Hx HIV on ART, HTN , L inguinal hernia who presented to the ED with left testicular pain and increased left inguinal hernia fullness. Pt noted to have several concerning features on CT abd for possible malignancy. #Left Testicular pain #Extra hepatic bili duct dilation #Enlarged, heterogeneic Prostate #Bladder wall thickening #Small bowel wall thickening - hold off on abx for now as pt seems non toxic - General surgery consulted - GI consulted--MRCP and MRE ordered tro further eval delia lesley dilatation (to be done once COVID 19 ruled out: ruled out)-> f/u result - Heme onc consult, Dr Jimenez - PSA mild elevated, f/u CEA, CA 19-9 - Urology Consult - Cont 2g Na diet - Pain control - Supportive care #Left inguinal hernia - general surgery consulted- appreciate recs, stable for outpt followup, easily reducible #HIV on art #HTN - ID consulted for assessment and mgt of HIV regimen, Dr Kim - Cont HAART - send CD4 & VL: reviewed FENPPX DVTPPX: scds GI PPX: Fluids: Diet: 2g na Lines: PT/OT: Code status: full Dispo: SNF ([facility]) Reason for Continued Hospitalization: Workup and mgt of possible malignancy I spent 35 minutes spent on this encounter w/ >50% on care/coordination and counseling. Discussed with RN and consultants named above. An additional 38 minutes were spent on chart review including notes, labs, imaging and other ancillary data. Time of note may not reflect time patient was seen. Subjective Date patient seen: Feb 13, 2020 Time patient seen: 13:00 Allergies: Coded Allergies: No Known Allergies (Unverified , 02/09/20) All Systems: reviewed and negative except above Subjective ain controlled no abd pain, v, d, f, c Objective Last 24 Hour Vital Signs Date Time Temp Pulse Resp B/P (MAP) Pulse Ox O2 Delivery O2 Flow Rate FiO2 02/13/20 12:00 97.3 82 18 133/81 (98) 92 02/13/20 09:49 134/72 02/13/20 09:00 Room Air 02/13/20 08:00 97.9 89 18 134/72 (92) 96 02/13/20 04:00 98.2 79 18 146/85 (105) 97 02/13/20 00:00 98.5 76 16 143/81 (101) 98 02/12/20 21:00 Room Air 02/12/20 20:00 98.3 83 18 151/89 (109) 97 02/12/20 16:00 98.0 86 18 136/82 (100) 98 Intake and Output 02/12/20 02/13/20 19:00 07:00 Intake Total 930 ml 1580 ml Output Total 1000 ml Balance -70 ml 1580 ml Intake Oral 930 ml 480 ml IV Total 1100 ml Output Urine Total 1000 ml # Voids 2 Laboratory Tests 02/12/20 16:50: HIV-1 RNA (PCR) log10 Value [Pending], HIV-1 RNA Ultraquantitative (PCR) [ Pending] 02/13/20 04:00: White Blood Count 4.2L, Red Blood Count 3.35L, Hemoglobin 11.0L, Hematocrit 34.5L, Mean Corpuscular Volume 103H, Mean Corpuscular Hemoglobin 32.9H, Mean Corpuscular Hemoglobin Concent 31.9L, Red Cell Distribution Width 12.7, Platelet Count 208, Mean Platelet Volume 7.2, Neutrophils (%) (Auto) 40.9L, Lymphocytes (%) (Auto) 45.5H, Monocytes (%) (Auto) 7.1, Eosinophils (%) (Auto) 5.1H, Basophils (%) (Auto) 1.5, Sodium Level 142, Potassium Level 4.0, Chloride Level 108H, Carbon Dioxide Level 27, Anion Gap 7, Blood Urea Nitrogen 18, Creatinine 1.2, Estimat Glomerular Filtration Rate > 60, Glucose Level 91, Calcium Level 8.5, Total Bilirubin 0.2, Aspartate Amino Transf (AST/SGOT) 16, Alanine Aminotransferase (ALT/SGPT) 20, Alkaline Phosphatase 79, Total Protein 6.4, Albumin 3.0L, Globulin 3.4, Albumin/Globulin Ratio 0.9L Height (Feet): 5 Height (Inches): 10.00 Weight (Pounds): 180 General Appearance: WD/WN, no apparent distress, alert Neck: normal alignment Cardiovascular: normal rate, regular rhythm Respiratory/Chest: lungs clear, normal breath sounds Abdomen: non tender, soft Genitourinary/Rectal: other - left large inguinal hernia, non tender, no erythema Edema: no edema noted Arm (L), no edema noted Arm (R), no edema noted Leg (L), no edema noted Leg (R), no edema noted Pedal (L), no edema noted Pedal (R), no edema noted Generalized Neurologic: responsive, normal mood/affect Marjorie Zeng DO Feb 13, 2020 15:43
[2020-02-13 16:00] VITALS: BP 135/88
--- NOTE | 2020-02-13 17:06 | Infectious Diseases Prog Note ---
Assessment/Plan Assessment/Plan ASSESSMENT AND PLAN: 1. hiv, on triumeq (components being given at [facility]) - cd4 - 655, viral load pending - continue current treatment - f/u with primary HIV MD 2. Hypertension. 3. Left inguinal hernia. 4. Testicular pain. 5. Hypertension per primary care team. 6. GI and surgery follow up. 7. No known drug allergies. 8. Social history is negative. 9. Family history is noncontributory. 10. MAR was noted. 11. Case was discussed with RN. 12. Continue treatment per primary consultants. Subjective Constitutional: Denies: fever HEENT: Denies: congestion Respiratory: Denies: shortness of breath Cardiovascular: Denies: chest pain Gastrointestinal/Abdominal: Denies: nausea, vomiting, diarrhea Genitourinary: Denies: dysuria Neurologic: Denies: headache, numbness Psychiatric: Denies: depression Skin: Denies: rash Hematologic: Denies: bleeding Musculoskeletal: Denies: pain Allergies: Coded Allergies: No Known Allergies (Unverified , 02/09/20) Objective Vital Signs Last 24 Hour Vital Signs Date Time Temp Pulse Resp B/P (MAP) Pulse Ox O2 Delivery O2 Flow Rate FiO2 02/13/20 16:00 97.5 84 19 135/88 (104) 99 02/13/20 12:00 97.3 82 18 133/81 (98) 92 02/13/20 09:49 134/72 02/13/20 09:00 Room Air 02/13/20 08:00 97.9 89 18 134/72 (92) 96 02/13/20 04:00 98.2 79 18 146/85 (105) 97 02/13/20 00:00 98.5 76 16 143/81 (101) 98 02/12/20 21:00 Room Air 02/12/20 20:00 98.3 83 18 151/89 (109) 97 Height (Feet): 5 Height (Inches): 10.00 Weight (Pounds): 180 General Appearance: no acute distress HEENT: normocephalic, atraumatic, anicteric, mucous membranes moist Respiratory/Chest: lungs clear, normal breath sounds, no respiratory distress, no accessory muscle use Cardiovascular: normal rate, regular rhythm, no gallop/murmur, no JVD Abdomen: normal bowel sounds, soft, non tender, no organomegaly, non distended Genitourinary: other - no morgan Extremities: no cyanosis Skin: no rash Neurologic/Psychiatric: 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 Complete Microbiology Date/Time Source Procedure Growth Status 02/10/20 17:08 Nasopharynx Coronavirus COVID-19 PCR (GUY) - Final Complete Laboratory Tests Test 02/13/20 04:00 White Blood Count 4.2 K/UL (4.8-10.8) L Red Blood Count 3.35 M/UL (4.70-6.10) L Hemoglobin 11.0 G/DL (14.2-18.0) L Hematocrit 34.5 % (42.0-52.0) L Mean Corpuscular Volume 103 FL (80-99) H Mean Corpuscular Hemoglobin 32.9 PG (27.0-31.0) H Mean Corpuscular Hemoglobin Concent 31.9 G/DL (32.0-36.0) L Red Cell Distribution Width 12.7 % (11.6-14.8) Platelet Count 208 K/UL (150-450) Mean Platelet Volume 7.2 FL (6.5-10.1) Neutrophils (%) (Auto) 40.9 % (45.0-75.0) L Lymphocytes (%) (Auto) 45.5 % (20.0-45.0) H Monocytes (%) (Auto) 7.1 % (1.0-10.0) Eosinophils (%) (Auto) 5.1 % (0.0-3.0) H Basophils (%) (Auto) 1.5 % (0.0-2.0) Sodium Level 142 MMOL/L (136-145) Potassium Level 4.0 MMOL/L (3.5-5.1) Chloride Level 108 MMOL/L (98-107) H Carbon Dioxide Level 27 MMOL/L (21-32) Anion Gap 7 mmol/L (5-15) Blood Urea Nitrogen 18 mg/dL (7-18) Creatinine 1.2 MG/DL (0.55-1.30) Estimat Glomerular Filtration Rate > 60 mL/min (>60) Glucose Level 91 MG/DL (74-106) Calcium Level 8.5 MG/DL (8.5-10.1) Total Bilirubin 0.2 MG/DL (0.2-1.0) Aspartate Amino Transf (AST/SGOT) 16 U/L (15-37) Alanine Aminotransferase (ALT/SGPT) 20 U/L (12-78) Alkaline Phosphatase 79 U/L (46-116) Total Protein 6.4 G/DL (6.4-8.2) Albumin 3.0 G/DL (3.4-5.0) L Globulin 3.4 g/dL Albumin/Globulin Ratio 0.9 (1.0-2.7) L Current Medications Medications (Trade) Dose Ordered Sig/Jimmy Route PRN Reason Start Time Stop Time Status Last Admin Dose Admin Abacavir Sulfate (Ziagen) 600 mg DAILY ORAL 02/10/20 15:00 03/11/20 14:59 02/13/20 09:50 Acetaminophen (Tylenol) 650 mg Q4H PRN ORAL Mild Pain (Pain Scale 1-3) 02/09/20 23:30 03/10/20 23:29 Acetaminophen (Tylenol) 650 mg Q4H PRN ORAL Temp >100.5 02/09/20 23:30 03/10/20 23:29 Al Hydroxide/Mg Hydroxide (Mylanta II) 30 ml Q6H PRN ORAL dyspepsia 02/09/20 23:30 03/10/20 23:29 Bisacodyl (Dulcolax) 10 mg HSPRN PRN RECTAL Constipation 02/09/20 23:30 05/09/20 23:29 Dextrose (Dextrose 50%) 25 ml Q30M PRN IV Hypoglycemia 02/09/20 23:30 05/09/20 23:29 Dextrose (Dextrose 50%) 50 ml Q30M PRN IV Hypoglycemia 02/09/20 23:30 05/09/20 23:29 Dextrose/Sodium Chloride 1,000 ml @ 100 mls/hr Q10H IV 02/10/20 00:24 03/11/20 00:23 02/13/20 09:51 Diphenhydramine HCl (Benadryl) 25 mg Q6H PRN ORAL Itching/Pruritis 02/09/20 23:30 03/10/20 23:29 Docusate Sodium (Colace) 100 mg EVERY 12 HOURS ORAL 02/10/20 09:00 03/11/20 08:59 02/13/20 09:49 Dolutegravir Sodium (Tivicay) 50 mg DAILY ORAL 02/10/20 15:00 05/10/20 14:59 02/13/20 09:50 Gadobutrol (Gadavist) 7.5 mmol NOW PRN IV Radiology Procedure 02/11/20 22:00 02/15/20 21:47 Gadobutrol (Gadavist) 7.5 mmol PRN PRN IV Radiology Procedure 02/12/20 12:45 02/16/20 12:39 Heparin Sodium (Porcine) (Heparin 5000 units/ml) 5,000 units EVERY 8 HOURS SUBQ 02/10/20 06:00 03/26/20 05:59 02/13/20 14:59 Lamivudine (Epivir) 300 mg DAILY ORAL 02/10/20 15:00 03/11/20 14:59 02/13/20 09:50 Lisinopril (ZestriL) 10 mg DAILY ORAL 02/10/20 09:00 03/11/20 08:59 02/13/20 09:49 Lorazepam (Ativan 2mg/ml 1ml) 0.5 mg Q4H PRN IV For Anxiety 02/09/20 23:30 02/16/20 23:29 Magnesium Hydroxide (Mom) 30 ml HSPRN PRN ORAL Constipation 02/09/20 23:30 03/10/20 23:29 Metoclopramide HCl (Reglan) 10 mg Q6H PRN IVP Nausea & Vomiting 02/09/20 23:30 03/10/20 23:29 Morphine Sulfate (Morphine Sulfate) 2 mg Q4H PRN IVP Moderate Pain (Pain Scale 4-6) 02/09/20 23:30 02/16/20 23:29 02/11/20 14:10 Morphine Sulfate (Morphine Sulfate) 4 mg Q4H PRN IVP Severe Pain (Pain Scale 7-10) 02/09/20 23:30 02/16/20 23:29 Ondansetron HCl (Zofran) 4 mg Q6H PRN IVP Nausea & Vomiting 02/09/20 23:30 03/10/20 23:29 Polyethylene Glycol (Miralax) 17 gm HSPRN PRN ORAL Constipation 02/09/20 23:30 03/10/20 23:29 Temazepam (Restoril) 15 mg HSPRN PRN ORAL Insomnia 02/09/20 23:30 02/16/20 23:29 Thiamine HCl (Vitamin B1) 100 mg DAILY ORAL 02/10/20 09:00 03/11/20 08:59 02/13/20 09:49 Mindy Sanchez MD Feb 13, 2020 17:06
--- NOTE | 2020-02-13 18:28 | Surgery Progress Note ---
Surgery Progress Note Subjective Symptoms: improved, pain absent, tolerating diet, voiding well, passing flatus , BM Additional Comments mRI noted Objective Last 24 Hour Vital Signs Date Time Temp Pulse Resp B/P (MAP) Pulse Ox O2 Delivery O2 Flow Rate FiO2 02/13/20 16:00 97.5 84 19 135/88 (104) 99 02/13/20 12:00 97.3 82 18 133/81 (98) 92 02/13/20 09:49 134/72 02/13/20 09:00 Room Air 02/13/20 08:00 97.9 89 18 134/72 (92) 96 02/13/20 04:00 98.2 79 18 146/85 (105) 97 02/13/20 00:00 98.5 76 16 143/81 (101) 98 02/12/20 21:00 Room Air 02/12/20 20:00 98.3 83 18 151/89 (109) 97 I&O Intake and Output 02/12/20 02/13/20 19:00 07:00 Intake Total 930 ml 1580 ml Output Total 1000 ml Balance -70 ml 1580 ml Intake Oral 930 ml 480 ml IV Total 1100 ml Output Urine Total 1000 ml # Voids 2 Cardiovascular: RSR Respiratory: clear Abdomen: soft, flat, non-tender, present bowel sounds, other - hernia reducible Extremities: no edema, no tenderness, no cyanosis Laboratory Tests Test 02/13/20 04:00 White Blood Count 4.2 K/UL (4.8-10.8) L Red Blood Count 3.35 M/UL (4.70-6.10) L Hemoglobin 11.0 G/DL (14.2-18.0) L Hematocrit 34.5 % (42.0-52.0) L Mean Corpuscular Volume 103 FL (80-99) H Mean Corpuscular Hemoglobin 32.9 PG (27.0-31.0) H Mean Corpuscular Hemoglobin Concent 31.9 G/DL (32.0-36.0) L Red Cell Distribution Width 12.7 % (11.6-14.8) Platelet Count 208 K/UL (150-450) Mean Platelet Volume 7.2 FL (6.5-10.1) Neutrophils (%) (Auto) 40.9 % (45.0-75.0) L Lymphocytes (%) (Auto) 45.5 % (20.0-45.0) H Monocytes (%) (Auto) 7.1 % (1.0-10.0) Eosinophils (%) (Auto) 5.1 % (0.0-3.0) H Basophils (%) (Auto) 1.5 % (0.0-2.0) Sodium Level 142 MMOL/L (136-145) Potassium Level 4.0 MMOL/L (3.5-5.1) Chloride Level 108 MMOL/L (98-107) H Carbon Dioxide Level 27 MMOL/L (21-32) Anion Gap 7 mmol/L (5-15) Blood Urea Nitrogen 18 mg/dL (7-18) Creatinine 1.2 MG/DL (0.55-1.30) Estimat Glomerular Filtration Rate > 60 mL/min (>60) Glucose Level 91 MG/DL (74-106) Calcium Level 8.5 MG/DL (8.5-10.1) Total Bilirubin 0.2 MG/DL (0.2-1.0) Aspartate Amino Transf (AST/SGOT) 16 U/L (15-37) Alanine Aminotransferase (ALT/SGPT) 20 U/L (12-78) Alkaline Phosphatase 79 U/L (46-116) Total Protein 6.4 G/DL (6.4-8.2) Albumin 3.0 G/DL (3.4-5.0) L Globulin 3.4 g/dL Albumin/Globulin Ratio 0.9 (1.0-2.7) L Plan Problems: (1) Renal cyst (2) Left inguinal hernia Assessment & Plan: Patient with a large reducible scrotal left inguinal hernia. No signs or symptoms of obstructive symptoms. Not incarcerated not strangulated by any means I was able to easily reduce the hernia at the bedside without complication. Identified findings with the patient discussed at bedside. I strongly recommend patient follow-up immediately upon outpatient with his PCP followed by surgeon within his network for considerations of elective left inguinal hernia repair as it currently still reducible non-complicated. I sized him that there is a potential given the size of this thing will become more symptomatic larger or more complicated in the future and the sooner he gets repaired the better. He expressed understanding and says now that it is bigger he will seek repair. ABDOMEN: Liver: Indeterminate at subcentimeter low attenuation foci in the liver parenchyma. Gallbladder and bile ducts: The gallbladder is contracted. Biliary ductal dilatation with the extrahepatic biliary tree measuring up to 7 mm. There appears to be wall thickening of the common bile duct that is indeterminate for malignancy or infection. No calcified stones. Pancreas: Unremarkable. No mass. No ductal dilation. Spleen: Unremarkable. No splenomegaly. Adrenals: Unremarkable. No mass. Kidneys and ureters: Very large partially exophytic anterior left renal cyst measuring up to 7.6 cm. No evidence of obstructive uropathy. Stomach and bowel: Negative for high-grade lower GI tract obstruction. There are segments of small bowel demonstrating at least a mild wall thickening. Negative for evidence of pneumatosis. There is a large left inguinal hernia extending into the scrotum containing multiple loops of bowel as well as mesenteric vessels. No significant obstruction secondary to the hernia. Currently no evidence of bowel strangulation. PELVIS: Appendix: No findings to suggest acute appendicitis. Bladder: Indeterminate moderate bladder wall thickening. Reproductive: Marked heterogeneous enlargement of the prostate gland indeterminate for malignancy and/or prostatitis. ABDOMEN and PELVIS: Intraperitoneal space: Unremarkable. No free air. No significant fluid collection. Bones/joints: No acute fracture. No dislocation. Soft tissues: See above. Vasculature: Unremarkable. No abdominal aortic aneurysm. Lymph nodes: Mild indeterminate retroperitoneal lymphadenopathy. Significant indeterminate bilateral inguinal lymphadenopathy. IMPRESSION: Biliary ductal dilatation with question of extrahepatic biliary tree wall thickening indeterminate for a distal obstructing lesion, neoplasm or cholangitis. Tiny nonspecific and indeterminate low attenuation foci in the liver parenchyma. Small bowel wall thickening is nonspecific but can be seen with infectious or inflammatory enteritis. Marked enlargement of the prostate gland that is significantly heterogeneous and indeterminate for malignancy and/or prostatitis. Nonspecific bladder wall thickening can be seen with infiltrative neoplastic, inflammatory or infectious etiologies. Large left inguinal hernia without evidence of bowel obstruction or strangulation. Indeterminate lymphadenopathy as above. (3) Thickened small bowel Assessment & Plan: d/c planning outpatient f/u (4) Common bile duct dilation Assessment & Plan: discussed with GI appreciate input labs noted imaging reviewed agree with GI - MRCP with biliary eval The liver and spleen appear homogeneous. Gallbladder is without sludge or stone. There is no signs of ductal dilatation. CBD is 6 mm with no filling defect demonstrated. The pancreas is unremarkable. Adrenals are normal. Large simple cyst of the left kidney noted as seen on prior CT. No hydronephrosis seen bilaterally. There is no signs of bowel distention. No ascites demonstrated. There is no adenopathy noted. There is an enlarged prostate with mass effect on the base of the bladder. Large left inguinal hernia and thinning bowel and fat as seen on prior CT. IMPRESSION: NO SIGN OF ACUTE DISEASE. NO BILIARY DILATATION OR DUCTAL STONE DEMONSTRATED. LARGE LEFT RENAL CYST. ENLARGED PROSTATE WITH MASS EFFECT ON THE BLADDER. LARGE LEFT INGUINAL HERNIA. NO SIGN OF OBSTRUCTION. Adan Cotter Feb 13, 2020 18:28
[2020-02-13 20:00] VITALS: BP 137/82
[2020-02-13] MEDS: Tamsulosin 0.4mg cap ORAL SCH (20:36)
[2020-02-13] MEDS: Doxycycline Monohydrate 100mg ORAL SCH (20:36)
--- NOTE | 2020-02-13 23:00 | Consultation ---
DATE OF CONSULTATION: 02/13/2020 CONSULTING PHYSICIAN: Marcus Posey MD. REFERRING PHYSICIAN: Marjorie Zeng MD. REASON FOR EVALUATION: For evaluation of enlarged prostate. HISTORY OF PRESENT ILLNESS: This is a 59-year-old gentleman. He was admitted to the hospital because of left-sided testicular pain and swelling. He was noted to have a large left inguinal hernia. He had a workup and a CT scan that showed enlarged prostate, which was heterogeneous. Urology evaluation requested. Patient is a poor historian. Most of the history was obtained from the chart. PAST MEDICAL HISTORY: Significant for history of HIV, hypertension, inguinal hernia. PAST SURGICAL HISTORY: Unknown. CURRENT MEDICATIONS: In the hospital, reviewed. ALLERGIES: No known drug allergies. SOCIAL HISTORY: Currently nonsmoker. REVIEW OF SYSTEMS: Voiding fair. Occasional frequency. PHYSICAL EXAMINATION: GENERAL: Well-developed well-nourished male, in no acute distress. VITAL SIGNS: Temperature is 97.5, blood pressure 135/88. ABDOMEN: Soft. There is an umbilical hernia. There is a very large left inguinal hernia with enlargement of the scrotum. Testicle is not well palpable. RECTAL: Reveals enlarged prostate, very firm, no nodules. LABORATORY DATA: BUN is 18, creatinine 1.2. His potassium is 4.0. PSA is 8.23. His white count is , hemoglobin 11.0, platelets are 208. His COVID was negative. DIAGNOSTIC IMAGING STUDIES: The patient had a CT scan of the abdomen and pelvis. There was mention of a large left renal cyst. There was mention of marked heterogeneous enlargement of the prostate gland, indeterminate for malignancy or prostatitis, some retroperitoneal adenopathy. The patient also had an abdominal MRI, which showed large left renal cyst, enlarged prostate with mass effect on the bladder, and left inguinal hernia. IMPRESSION: 1. Significant BPH. 2. Urinary frequency. 3. Rule out neurogenic bladder. 4. Large left inguinal hernia. 5. Large left renal cyst. 6. Possible chronic prostatitis. 7. Possible left hydrocele. 8. Mild elevation of serum PSA. PLAN AND DISCUSSION: Again, the patient does appear to have a significant enlargement of prostate consistent with BPH. There is some heterogeneity and this may be secondary to BPH or possibly chronic prostatitis or malignancy can be possible. He does have mild elevation of his PSA, which again could be secondary to any of the above. At this time, I will add Flomax 0.4 mg daily as well as finasteride 5 mg daily. I will also add doxycycline 100 mg b.i.d. for possible prostatitis with monitoring of symptoms and at some point, I would recommend a repeat check of the PSA after course of antibiotics, which I would say at least 2 or 3 weeks and at that point, if the PSA is still elevated, consideration will be given to prostate MRI or biopsy to rule out malignancy. This can all be done as an outpatient. He does have a large left inguinal hernia and I will defer that to Dr. Cotter. Urinalysis will also be obtained. Thank you for this consultation. Marcus Posey M.D. DR: ENOCH JOB#: [id number] CC:
[2020-02-14] VITALS: BP 146/57
[2020-02-14] MEDS: D5NS 1,000 ML IV SCH ×2 (03:30→14:24)
[2020-02-14 04:00] VITALS: BP 141/93
[2020-02-14 05:43] LABS: APPEARANCE,URINE CLEAR; BILIRUBIN, URINE NEGATIVE (NEGATIVE); COLOR,URINE PALE YELLOW; GLUCOSE, URINE (UA) NEGATIVE (NEGATIVE); KETONES,URINE NEGATIVE (NEGATIVE); LEUKOCYTE ESTERASE ,URINE NEGATIVE (NEGATIVE); NITRITE,URINE NEGATIVE (NEGATIVE); PH,URINE 6 (4.5-8.0); PROTEIN,URINE NEGATIVE (NEGATIVE); UROBILINOGEN,URINE NORMAL MG/DL (0.0-1.0)
[2020-02-14] MEDS: Heparin 5000 units/ml inj SUBQ SCH ×3 (06:02→22:19)
[2020-02-14 08:00] VITALS: BP 118/92
[2020-02-14] MEDS: Lisinopril 10mg tab ORAL SCH (08:10)
[2020-02-14] MEDS: Thiamine 100mg tab ORAL SCH (08:10)
[2020-02-14] MEDS: Doxycycline Monohydrate 100mg ORAL SCH ×2 (08:10→22:11)
[2020-02-14] MEDS: Docusate 100mg cap ORAL SCH ×2 (08:10→22:11)
[2020-02-14] MEDS: Dolutegravir Sodium 50mg tab ORAL SCH (08:11)
--- NOTE | 2020-02-14 08:27 | Urology Progress Note ---
Assessment/Plan Status: stable Assessment/Plan: 1. Significant BPH. 2. Urinary frequency. 3. Rule out neurogenic bladder. 4. Large left inguinal hernia. 5. Large left renal cyst. 6. Possible chronic prostatitis. 7. Possible left hydrocele. 8. Mild elevation of serum PSA. monitor clinically flomax, proscar and abx added recheck PSA later cysto as outpt Subjective Allergies: Coded Allergies: No Known Allergies (Unverified , 02/09/20) Subjective looks comfortable Objective Last 24 Hour Vital Signs Date Time Temp Pulse Resp B/P (MAP) Pulse Ox O2 Delivery O2 Flow Rate FiO2 02/14/20 08:10 118/92 02/14/20 04:00 97.8 88 18 141/93 (109) 99 02/14/20 00:00 98.6 79 18 146/57 (86) 99 02/13/20 20:52 Room Air 02/13/20 20:00 97.1 88 19 137/82 (100) 99 02/13/20 16:00 97.5 84 19 135/88 (104) 99 02/13/20 12:00 97.3 82 18 133/81 (98) 92 02/13/20 09:49 134/72 02/13/20 09:00 Room Air Intake and Output 02/13/20 02/14/20 19:00 07:00 Intake Total 1100 ml 150 ml Balance 1100 ml 150 ml Intake Oral 600 ml 150 ml IV Total 500 ml # Voids 4 3 Microbiology Date/Time Source Procedure Growth Status 02/10/20 17:08 Nasopharynx Coronavirus COVID-19 PCR (GUY) - Final Complete 02/09/20 23:50 Rectum - Final NO CARBAPENEM-RESISTANT ENTEROBACTERI... Complete Current Medications Medications (Trade) Dose Ordered Sig/Jimmy Route PRN Reason Start Time Stop Time Status Last Admin Dose Admin Abacavir Sulfate (Ziagen) 600 mg DAILY ORAL 02/10/20 15:00 03/11/20 14:59 02/14/20 08:11 Acetaminophen (Tylenol) 650 mg Q4H PRN ORAL Mild Pain (Pain Scale 1-3) 02/09/20 23:30 03/10/20 23:29 Acetaminophen (Tylenol) 650 mg Q4H PRN ORAL Temp >100.5 02/09/20 23:30 03/10/20 23:29 Al Hydroxide/Mg Hydroxide (Mylanta II) 30 ml Q6H PRN ORAL dyspepsia 02/09/20 23:30 03/10/20 23:29 Bisacodyl (Dulcolax) 10 mg HSPRN PRN RECTAL Constipation 02/09/20 23:30 05/09/20 23:29 Dextrose (Dextrose 50%) 25 ml Q30M PRN IV Hypoglycemia 02/09/20 23:30 05/09/20 23:29 Dextrose (Dextrose 50%) 50 ml Q30M PRN IV Hypoglycemia 02/09/20 23:30 05/09/20 23:29 Dextrose/Sodium Chloride 1,000 ml @ 100 mls/hr Q10H IV 02/10/20 00:24 03/11/20 00:23 02/14/20 03:30 Diphenhydramine HCl (Benadryl) 25 mg Q6H PRN ORAL Itching/Pruritis 02/09/20 23:30 03/10/20 23:29 Docusate Sodium (Colace) 100 mg EVERY 12 HOURS ORAL 02/10/20 09:00 03/11/20 08:59 02/14/20 08:10 Dolutegravir Sodium (Tivicay) 50 mg DAILY ORAL 02/10/20 15:00 05/10/20 14:59 02/14/20 08:11 Doxycycline Monohydrate (Doxycycline Monohydrate) 100 mg EVERY 12 HOURS ORAL 02/13/20 21:00 02/20/20 20:59 02/14/20 08:10 Finasteride (Proscar) 5 mg DAILY ORAL 02/14/20 09:00 05/14/20 08:59 02/14/20 08:10 Gadobutrol (Gadavist) 7.5 mmol NOW PRN IV Radiology Procedure 02/11/20 22:00 02/15/20 21:47 Gadobutrol (Gadavist) 7.5 mmol PRN PRN IV Radiology Procedure 02/12/20 12:45 02/16/20 12:39 Heparin Sodium (Porcine) (Heparin 5000 units/ml) 5,000 units EVERY 8 HOURS SUBQ 02/10/20 06:00 03/26/20 05:59 02/14/20 06:02 Lamivudine (Epivir) 300 mg DAILY ORAL 02/10/20 15:00 03/11/20 14:59 02/14/20 08:11 Lisinopril (ZestriL) 10 mg DAILY ORAL 02/10/20 09:00 03/11/20 08:59 02/14/20 08:10 Lorazepam (Ativan 2mg/ml 1ml) 0.5 mg Q4H PRN IV For Anxiety 02/09/20 23:30 02/16/20 23:29 Magnesium Hydroxide (Mom) 30 ml HSPRN PRN ORAL Constipation 02/09/20 23:30 03/10/20 23:29 Metoclopramide HCl (Reglan) 10 mg Q6H PRN IVP Nausea & Vomiting 02/09/20 23:30 03/10/20 23:29 Morphine Sulfate (Morphine Sulfate) 2 mg Q4H PRN IVP Moderate Pain (Pain Scale 4-6) 02/09/20 23:30 02/16/20 23:29 02/11/20 14:10 Morphine Sulfate (Morphine Sulfate) 4 mg Q4H PRN IVP Severe Pain (Pain Scale 7-10) 02/09/20 23:30 02/16/20 23:29 Ondansetron HCl (Zofran) 4 mg Q6H PRN IVP Nausea & Vomiting 02/09/20 23:30 03/10/20 23:29 Polyethylene Glycol (Miralax) 17 gm HSPRN PRN ORAL Constipation 02/09/20 23:30 03/10/20 23:29 Tamsulosin HCl (Flomax) 0.4 mg BEDTIME ORAL 02/13/20 21:00 03/14/20 20:59 02/13/20 20:36 Temazepam (Restoril) 15 mg HSPRN PRN ORAL Insomnia 02/09/20 23:30 02/16/20 23:29 Thiamine HCl (Vitamin B1) 100 mg DAILY ORAL 02/10/20 09:00 03/11/20 08:59 02/14/20 08:10 Laboratory Tests 02/14/20 05:00: Urine Color Pale yellow, Urine Appearance Clear, Urine pH 6, Urine Specific [place] 1.015, Urine Protein Negative, Urine Glucose (UA) Negative, Urine Ketones Negative, Urine Blood Negative, Urine Nitrite Negative, Urine Bilirubin Negative, Urine Urobilinogen Normal, Urine Leukocyte Esterase Negative, Urine RBC 0, Urine WBC 0, Urine Squamous Epithelial Cells None, Urine Bacteria None Height (Feet): 5 Height (Inches): 10.00 Weight (Pounds): 177 Objective exam stable Marcus Posey MD Feb 14, 2020 08:27
--- NOTE | 2020-02-14 09:34 | Hematology/Onc Progress Note ---
Assessment/Plan Assessment/Plan A/R # Elevated psa on admission approx 8.3, with a left Inguinal hernia --> likely nonspecific, would expect much larger >20 value if prostate ca --> will recommend urology eval with psa repeat in 6 months --> uro eval prn # Anemia likely of chronic disease, with underlying HIV --> meds noted, stated haart, per id --> hgb trend 11-->11 --> anemia panel baseline ordered # Leukopenia also likely infection related --> hiv++ --> hep panel --> wbc trend 4.2 # Borderline biliary dilation / thickening with normal LFT --> as per gi care # Ill defined small bowel changes without associated symptoms, ? significance --> mrcp/mre of small bowel --> per surg eval --> per colo with gi as needed # Dvt ppx with heparin sq Appreciate consultation and dw Rn Subjective HEENT: Denies: no symptoms, eye pain, blurred vision, tearing, double vision, ear pain, ear discharge, nose pain, nose congestion, throat pain, throat swelling, mouth pain, mouth swelling, other Cardiovascular: Denies: no symptoms, chest pain, edema, irregular heart rate, lightheadedness, palpitations, syncope, other Respiratory: Denies: no symptoms, cough, shortness of breath, SOB with excertion, SOB at rest, sputum, wheezing, other Gastrointestinal/Abdominal: Denies: no symptoms, abdomen distended, abdominal pain, black stools, tarry stools, blood in stool, constipated, diarrhea, difficulty swallowing, nausea, poor appetite, poor fluid intake, rectal bleeding , vomiting, other Genitourinary: Denies: no symptoms, burning, discharge, frequency, flank pain, hematuria, incontinence, pain, urgency, other Neurologic/Psychiatric: Denies: no symptoms, anxiety, depressed, emotional problems, headache, numbness, paresthesia, pre-existing deficit, seizure, tingling, tremors, weakness, other Endocrine: Denies: no symptoms, excessive sweating, flushing, intolerance to cold, intolerance to heat, increased hunger, increased thirst, increased urine, unexplained weight gain, unexplained weight loss, other Hematologic/Lymphatic: Denies: no symptoms, anemia, easy bleeding, easy bruising, adenopathy, other Allergies: Coded Allergies: No Known Allergies (Unverified , 02/09/20) Subjective 02/12 no events, no bleeding, pending mrcp, no night sweats 02/13 labs noted, seen by uro, recs reviewed, no bleeding, wbc 4.2 Objective Objective Current Medications Medications (Trade) Dose Ordered Sig/Jimmy Route PRN Reason Start Time Stop Time Status Last Admin Dose Admin Abacavir Sulfate (Ziagen) 600 mg DAILY ORAL 02/10/20 15:00 03/11/20 14:59 02/14/20 08:11 Acetaminophen (Tylenol) 650 mg Q4H PRN ORAL Mild Pain (Pain Scale 1-3) 02/09/20 23:30 03/10/20 23:29 Acetaminophen (Tylenol) 650 mg Q4H PRN ORAL Temp >100.5 02/09/20 23:30 03/10/20 23:29 Al Hydroxide/Mg Hydroxide (Mylanta II) 30 ml Q6H PRN ORAL dyspepsia 02/09/20 23:30 03/10/20 23:29 Bisacodyl (Dulcolax) 10 mg HSPRN PRN RECTAL Constipation 02/09/20 23:30 05/09/20 23:29 Dextrose (Dextrose 50%) 25 ml Q30M PRN IV Hypoglycemia 02/09/20 23:30 05/09/20 23:29 Dextrose (Dextrose 50%) 50 ml Q30M PRN IV Hypoglycemia 02/09/20 23:30 05/09/20 23:29 Dextrose/Sodium Chloride 1,000 ml @ 100 mls/hr Q10H IV 02/10/20 00:24 03/11/20 00:23 02/14/20 03:30 Diphenhydramine HCl (Benadryl) 25 mg Q6H PRN ORAL Itching/Pruritis 02/09/20 23:30 03/10/20 23:29 Docusate Sodium (Colace) 100 mg EVERY 12 HOURS ORAL 02/10/20 09:00 03/11/20 08:59 02/14/20 08:10 Dolutegravir Sodium (Tivicay) 50 mg DAILY ORAL 02/10/20 15:00 05/10/20 14:59 02/14/20 08:11 Doxycycline Monohydrate (Doxycycline Monohydrate) 100 mg EVERY 12 HOURS ORAL 02/13/20 21:00 02/20/20 20:59 02/14/20 08:10 Finasteride (Proscar) 5 mg DAILY ORAL 02/14/20 09:00 05/14/20 08:59 02/14/20 08:10 Gadobutrol (Gadavist) 7.5 mmol NOW PRN IV Radiology Procedure 02/11/20 22:00 02/15/20 21:47 Gadobutrol (Gadavist) 7.5 mmol PRN PRN IV Radiology Procedure 02/12/20 12:45 02/16/20 12:39 Heparin Sodium (Porcine) (Heparin 5000 units/ml) 5,000 units EVERY 8 HOURS SUBQ 02/10/20 06:00 03/26/20 05:59 02/14/20 06:02 Lamivudine (Epivir) 300 mg DAILY ORAL 02/10/20 15:00 03/11/20 14:59 02/14/20 08:11 Lisinopril (ZestriL) 10 mg DAILY ORAL 02/10/20 09:00 03/11/20 08:59 02/14/20 08:10 Lorazepam (Ativan 2mg/ml 1ml) 0.5 mg Q4H PRN IV For Anxiety 02/09/20 23:30 02/16/20 23:29 Magnesium Hydroxide (Mom) 30 ml HSPRN PRN ORAL Constipation 02/09/20 23:30 03/10/20 23:29 Metoclopramide HCl (Reglan) 10 mg Q6H PRN IVP Nausea & Vomiting 02/09/20 23:30 03/10/20 23:29 Morphine Sulfate (Morphine Sulfate) 2 mg Q4H PRN IVP Moderate Pain (Pain Scale 4-6) 02/09/20 23:30 02/16/20 23:29 02/11/20 14:10 Morphine Sulfate (Morphine Sulfate) 4 mg Q4H PRN IVP Severe Pain (Pain Scale 7-10) 02/09/20 23:30 02/16/20 23:29 Ondansetron HCl (Zofran) 4 mg Q6H PRN IVP Nausea & Vomiting 02/09/20 23:30 03/10/20 23:29 Polyethylene Glycol (Miralax) 17 gm HSPRN PRN ORAL Constipation 02/09/20 23:30 03/10/20 23:29 Tamsulosin HCl (Flomax) 0.4 mg BEDTIME ORAL 02/13/20 21:00 03/14/20 20:59 02/13/20 20:36 Temazepam (Restoril) 15 mg HSPRN PRN ORAL Insomnia 02/09/20 23:30 02/16/20 23:29 Thiamine HCl (Vitamin B1) 100 mg DAILY ORAL 02/10/20 09:00 03/11/20 08:59 02/14/20 08:10 Last 24 Hour Vital Signs Date Time Temp Pulse Resp B/P (MAP) Pulse Ox O2 Delivery O2 Flow Rate FiO2 02/14/20 08:10 118/92 02/14/20 08:00 97.3 86 21 118/92 (101) 98 02/14/20 04:00 97.8 88 18 141/93 (109) 99 02/14/20 00:00 98.6 79 18 146/57 (86) 99 02/13/20 20:52 Room Air 02/13/20 20:00 97.1 88 19 137/82 (100) 99 02/13/20 16:00 97.5 84 19 135/88 (104) 99 02/13/20 12:00 97.3 82 18 133/81 (98) 92 02/13/20 09:49 134/72 02/13/20 09:00 Room Air 02/13/20 08:00 97.9 89 18 134/72 (92) 96 02/13/20 04:00 98.2 79 18 146/85 (105) 97 02/13/20 00:00 98.5 76 16 143/81 (101) 98 02/12/20 21:00 Room Air 02/12/20 20:00 98.3 83 18 151/89 (109) 97 02/12/20 16:00 98.0 86 18 136/82 (100) 98 02/12/20 12:00 97.0 85 18 137/87 (104) 97 Intake and Output 02/13/20 02/14/20 19:00 07:00 Intake Total 1100 ml 150 ml Balance 1100 ml 150 ml Intake Oral 600 ml 150 ml IV Total 500 ml # Voids 4 3 Labs Test 02/12/20 05:15 02/12/20 08:30 02/12/20 16:50 02/13/20 04:00 White Blood Count 3.7 K/UL (4.8-10.8) 4.2 K/UL (4.8-10.8) Red Blood Count 3.42 M/UL (4.70-6.10) 3.35 M/UL (4.70-6.10) Hemoglobin 11.1 G/DL (14.2-18.0) 11.0 G/DL (14.2-18.0) Hematocrit 34.5 % (42.0-52.0) 34.5 % (42.0-52.0) Mean Corpuscular Volume 101 FL (80-99) 103 FL (80-99) Mean Corpuscular Hemoglobin 32.4 PG (27.0-31.0) 32.9 PG (27.0-31.0) Mean Corpuscular Hemoglobin Concent 32.0 G/DL (32.0-36.0) 31.9 G/DL (32.0-36.0) Red Cell Distribution Width 12.4 % (11.6-14.8) 12.7 % (11.6-14.8) Platelet Count 185 K/UL (150-450) 208 K/UL (150-450) Mean Platelet Volume 6.6 FL (6.5-10.1) 7.2 FL (6.5-10.1) Neutrophils (%) (Auto) 40.0 % (45.0-75.0) 40.9 % (45.0-75.0) Lymphocytes (%) (Auto) 44.7 % (20.0-45.0) 45.5 % (20.0-45.0) Monocytes (%) (Auto) 8.4 % (1.0-10.0) 7.1 % (1.0-10.0) Eosinophils (%) (Auto) 5.5 % (0.0-3.0) 5.1 % (0.0-3.0) Basophils (%) (Auto) 1.4 % (0.0-2.0) 1.5 % (0.0-2.0) Sodium Level 139 MMOL/L (136-145) 142 MMOL/L (136-145) Potassium Level 4.0 MMOL/L (3.5-5.1) 4.0 MMOL/L (3.5-5.1) Chloride Level 106 MMOL/L (98-107) 108 MMOL/L (98-107) Carbon Dioxide Level 27 MMOL/L (21-32) 27 MMOL/L (21-32) Anion Gap 6 mmol/L (5-15) 7 mmol/L (5-15) Blood Urea Nitrogen 14 mg/dL (7-18) 18 mg/dL (7-18) Creatinine 1.2 MG/DL (0.55-1.30) 1.2 MG/DL (0.55-1.30) Estimat Glomerular Filtration Rate > 60 mL/min (>60) > 60 mL/min (>60) Glucose Level 91 MG/DL (74-106) 91 MG/DL (74-106) Calcium Level 8.6 MG/DL (8.5-10.1) 8.5 MG/DL (8.5-10.1) Total Bilirubin 0.3 MG/DL (0.2-1.0) 0.2 MG/DL (0.2-1.0) Aspartate Amino Transf (AST/SGOT) 20 U/L (15-37) 16 U/L (15-37) Alanine Aminotransferase (ALT/SGPT) 13 U/L (12-78) 20 U/L (12-78) Alkaline Phosphatase 77 U/L (46-116) 79 U/L (46-116) Total Protein 6.5 G/DL (6.4-8.2) 6.4 G/DL (6.4-8.2) Albumin 3.0 G/DL (3.4-5.0) 3.0 G/DL (3.4-5.0) Globulin 3.5 g/dL 3.4 g/dL Albumin/Globulin Ratio 0.9 (1.0-2.7) 0.9 (1.0-2.7) Iron Level 86 ug/dL (50-175) Total Iron Binding Capacity 188 ug/dL (250-450) Percent Iron Saturation 46 % (15-50) Unsaturated Iron Binding 102 ug/dL (112-346) Ferritin 115 NG/ML (8-388) Test 02/14/20 05:00 Urine Color Pale yellow Urine Appearance Clear Urine pH 6 (4.5-8.0) Urine Specific [place] 1.015 (1.005-1.035) Urine Protein Negative (NEGATIVE) Urine Glucose (UA) Negative (NEGATIVE) Urine Ketones Negative (NEGATIVE) Urine Blood Negative (NEGATIVE) Urine Nitrite Negative (NEGATIVE) Urine Bilirubin Negative (NEGATIVE) Urine Urobilinogen Normal MG/DL (0.0-1.0) Urine Leukocyte Esterase Negative (NEGATIVE) Urine RBC 0 /HPF (0 - 0) Urine WBC 0 /HPF (0 - 0) Urine Squamous Epithelial Cells None /LPF (NONE/OCC) Urine Bacteria None /HPF (NONE) Height (Feet): 5 Height (Inches): 10.00 Weight (Pounds): 177 Objective Physical Exam General appearance: alert, cooperative, no distress, appears stated age Head: Normocephalic, without obvious abnormality, atraumatic Lungs: clear to auscultation bilaterally Heart: regular rate and rhythm, S1, S2 normal, no murmur Abdomen: soft, non-tender. Bowel sounds normal. No masses reducible scrotal left inguinal hernia + Extremities: extremities normal, atraumatic, no cyanosis or edema Neurologic: Grossly normal Aftab Jimenez MD Feb 14, 2020 09:34
--- NOTE | 2020-02-14 10:47 | General Progress Note ---
Assessment/Plan Status: stable Assessment/Plan: Assessment/Plan: Assessment - (L) inguinal hernia - borderline biliary dilation / thickening with normal LFT, ? significance - ill defined small bowel changes without associated symptoms, ? significance - enlarged prostate with elevated PSA Recommendations - check MRCP of biliary tree>> reviewed - general surgery eval of inguinal hernia - eventual / outpatient colonoscopy (has not had one) - check stool OB Subjective Allergies: Coded Allergies: No Known Allergies (Unverified , 02/09/20) Objective Last 24 Hour Vital Signs Date Time Temp Pulse Resp B/P (MAP) Pulse Ox O2 Delivery O2 Flow Rate FiO2 02/14/20 08:10 118/92 02/14/20 08:00 97.3 86 21 118/92 (101) 98 02/14/20 04:00 97.8 88 18 141/93 (109) 99 02/14/20 00:00 98.6 79 18 146/57 (86) 99 02/13/20 20:52 Room Air 02/13/20 20:00 97.1 88 19 137/82 (100) 99 02/13/20 16:00 97.5 84 19 135/88 (104) 99 02/13/20 12:00 97.3 82 18 133/81 (98) 92 Intake and Output 02/13/20 02/14/20 19:00 07:00 Intake Total 1100 ml 150 ml Balance 1100 ml 150 ml Intake Oral 600 ml 150 ml IV Total 500 ml # Voids 4 3 Laboratory Tests 02/14/20 05:00: Urine Color Pale yellow, Urine Appearance Clear, Urine pH 6, Urine Specific [place] 1.015, Urine Protein Negative, Urine Glucose (UA) Negative, Urine Ketones Negative, Urine Blood Negative, Urine Nitrite Negative, Urine Bilirubin Negative, Urine Urobilinogen Normal, Urine Leukocyte Esterase Negative, Urine RBC 0, Urine WBC 0, Urine Squamous Epithelial Cells None, Urine Bacteria None Height (Feet): 5 Height (Inches): 10.00 Weight (Pounds): 177 General Appearance: no apparent distress EENT: normal ENT inspection Neck: supple Cardiovascular: normal rate, gallop/S3 Abdomen: normal bowel sounds, non tender, soft Extremities: non-tender Tyler Gallo MD Feb 14, 2020 10:47
[2020-02-14 12:02] VITALS: BP 126/95
[2020-02-14] MEDS ORDERED: FLOMAX0.4 MG ORAL (13:09)
[2020-02-14] MEDS ORDERED: FINASTERIDE5 MG ORAL (13:09)
[2020-02-14] MEDS ORDERED: LISINOPRIL10 MG ORAL (13:09)
[2020-02-14] MEDS ORDERED: TRIUMEQ 600-501 EACH PO (13:09)
[2020-02-14] MEDS ORDERED: ACETAMINOPHEN325 M1 ORAL (13:09)
[2020-02-14] MEDS ORDERED: VITAMIN D3 COM1 EACH PO (13:09)
--- NOTE | 2020-02-14 13:17 | General Progress Note ---
Assessment/Plan Problem List: (1) Left inguinal hernia ICD Codes: K40.90 - Unilateral inguinal hernia, without obstruction or gangrene , not specified as recurrent SNOMED: 750655782 (2) Thickened small bowel ICD Codes: K63.9 - Disease of intestine, unspecified SNOMED: 176974838 (3) Common bile duct dilation ICD Codes: K83.8 - Other specified diseases of biliary tract SNOMED: 490166248 (4) Testicular mass ICD Codes: N50.89 - Other specified disorders of the male genital organs SNOMED: 30891707 Status: stable Assessment/Plan: 59-year-old male SN[facility] resident ([facility]) w/ MMP including Hx HIV on ART, HTN , L inguinal hernia who presented to the ED with left testicular pain and increased left inguinal hernia fullness. Pt noted to have several concerning features on CT abd for possible malignancy. #Left Testicular pain #Extra hepatic bili duct dilation #Enlarged, heterogeneic Prostate #Bladder wall thickening #Small bowel wall thickening - hold off on abx for now as pt seems non toxic - General surgery consulted: No surgical intervention as hernia is reducible - GI consulted--MRCP and MRE ordered tro further eval delia lesley dilatation (to be done once COVID 19 ruled out: ruled out)-> f/u result: Negative; discussed with surgery and gastroenterology all agree that patient is cleared for discharge - Heme onc consult, Dr Jimenez - PSA mild elevated, f/u [facility], CA 19-9 - Urology Consult: Appreciate recs, continue Flomax and Proscar, follow-up as outpatient - Cont 2g Na diet - Pain control - Supportive care #Dispo -Homeless? Documentation reviewed that shows the patient is homeless and was discharged from [facility] to intermediate. However patient is able to give me address where he stays as well as states he gets his medication once a month and picks it up -Follow-up social work and case resolution specialist #Left inguinal hernia - general surgery consulted- appreciate recs, stable for outpt followup, easily reducible #HIV on art #HTN - ID consulted for assessment and mgt of HIV regimen, Dr Kim - Cont HAART - send CD4 & VL: reviewed FENPPX DVTPPX: scds GI PPX: Fluids: Diet: 2g na Lines: PT/OT: Code status: full Reason for Continued Hospitalization: Workup and mgt of possible malignancy I spent 35 minutes spent on this encounter w/ >50% on care/coordination and counseling. Discussed with RN and consultants named above. I spent a total of more than 36 minutes in discussing case with patient, family members, staff including case resolution specialist, nursing, and other specialists involved in the case as above.. Time of note may not reflect time patient was seen. Subjective Date patient seen: Feb 14, 2020 Time patient seen: 09:30 Allergies: Coded Allergies: No Known Allergies (Unverified , 02/09/20) Subjective No acute events overnight, vitals stable no abd pain, v, d, f, c Objective Last 24 Hour Vital Signs Date Time Temp Pulse Resp B/P (MAP) Pulse Ox O2 Delivery O2 Flow Rate FiO2 02/14/20 12:02 98.2 89 22 126/95 (105) 98 02/14/20 09:00 Room Air 02/14/20 08:10 118/92 02/14/20 08:00 97.3 86 21 118/92 (101) 98 02/14/20 04:00 97.8 88 18 141/93 (109) 99 02/14/20 00:00 98.6 79 18 146/57 (86) 99 02/13/20 20:52 Room Air 02/13/20 20:00 97.1 88 19 137/82 (100) 99 02/13/20 16:00 97.5 84 19 135/88 (104) 99 Intake and Output 02/13/20 02/14/20 19:00 07:00 Intake Total 1100 ml 150 ml Balance 1100 ml 150 ml Intake Oral 600 ml 150 ml IV Total 500 ml # Voids 4 3 Laboratory Tests 02/14/20 05:00: Urine Color Pale yellow, Urine Appearance Clear, Urine pH 6, Urine Specific [place] 1.015, Urine Protein Negative, Urine Glucose (UA) Negative, Urine Ketones Negative, Urine Blood Negative, Urine Nitrite Negative, Urine Bilirubin Negative, Urine Urobilinogen Normal, Urine Leukocyte Esterase Negative, Urine RBC 0, Urine WBC 0, Urine Squamous Epithelial Cells None, Urine Bacteria None Height (Feet): 5 Height (Inches): 10.00 Weight (Pounds): 177 Objective GENERAL: No acute distress, appears comfortable, alert HEENT: NCAT, non-icteric eyes, pupils PERRLA Neck: No cervical lymphadenopathy, trachea midline CV: Regular rate and rhythm, no murmurs rubs or gallops RESP: Clear to auscultation bilaterally, no wheezes/rhonchi/crackles ABD: soft, non-distended, no TTP EXT: Normal muscle tone, +5/5 muscle strength NEURO: No obvious deficits, alert and oriented x3 Marjorie Zeng DO Feb 14, 2020 13:17
--- NOTE | 2020-02-14 15:01 | Surgery Progress Note ---
Surgery Progress Note Subjective Symptoms: improved, pain absent, tolerating diet, voiding well, passing flatus , BM Objective Last 24 Hour Vital Signs Date Time Temp Pulse Resp B/P (MAP) Pulse Ox O2 Delivery O2 Flow Rate FiO2 02/14/20 12:02 98.2 89 22 126/95 (105) 98 02/14/20 09:00 Room Air 02/14/20 08:10 118/92 02/14/20 08:00 97.3 86 21 118/92 (101) 98 02/14/20 04:00 97.8 88 18 141/93 (109) 99 02/14/20 00:00 98.6 79 18 146/57 (86) 99 02/13/20 20:52 Room Air 02/13/20 20:00 97.1 88 19 137/82 (100) 99 02/13/20 16:00 97.5 84 19 135/88 (104) 99 I&O Intake and Output 02/13/20 02/14/20 19:00 07:00 Intake Total 1100 ml 150 ml Balance 1100 ml 150 ml Intake Oral 600 ml 150 ml IV Total 500 ml # Voids 4 3 Cardiovascular: RSR Respiratory: clear Abdomen: soft, flat, non-tender, present bowel sounds Extremities: no edema, no tenderness, no cyanosis Laboratory Tests Test 02/14/20 05:00 Urine Color Pale yellow Urine Appearance Clear Urine pH 6 (4.5-8.0) Urine Specific [place] 1.015 (1.005-1.035) Urine Protein Negative (NEGATIVE) Urine Glucose (UA) Negative (NEGATIVE) Urine Ketones Negative (NEGATIVE) Urine Blood Negative (NEGATIVE) Urine Nitrite Negative (NEGATIVE) Urine Bilirubin Negative (NEGATIVE) Urine Urobilinogen Normal MG/DL (0.0-1.0) Urine Leukocyte Esterase Negative (NEGATIVE) Urine RBC 0 /HPF (0 - 0) Urine WBC 0 /HPF (0 - 0) Urine Squamous Epithelial Cells None /LPF (NONE/OCC) Urine Bacteria None /HPF (NONE) Plan Problems: (1) Renal cyst (2) Left inguinal hernia Assessment & Plan: Patient with a large reducible scrotal left inguinal hernia. No signs or symptoms of obstructive symptoms. Not incarcerated not strangulated by any means I was able to easily reduce the hernia at the bedside without complication. Identified findings with the patient discussed at bedside. I strongly recommend patient follow-up immediately upon outpatient with his PCP followed by surgeon within his network for considerations of elective left inguinal hernia repair as it currently still reducible non-complicated. I sized him that there is a potential given the size of this thing will become more symptomatic larger or more complicated in the future and the sooner he gets repaired the better. He expressed understanding and says now that it is bigger he will seek repair. ABDOMEN: Liver: Indeterminate at subcentimeter low attenuation foci in the liver parenchyma. Gallbladder and bile ducts: The gallbladder is contracted. Biliary ductal dilatation with the extrahepatic biliary tree measuring up to 7 mm. There appears to be wall thickening of the common bile duct that is indeterminate for malignancy or infection. No calcified stones. Pancreas: Unremarkable. No mass. No ductal dilation. Spleen: Unremarkable. No splenomegaly. Adrenals: Unremarkable. No mass. Kidneys and ureters: Very large partially exophytic anterior left renal cyst measuring up to 7.6 cm. No evidence of obstructive uropathy. Stomach and bowel: Negative for high-grade lower GI tract obstruction. There are segments of small bowel demonstrating at least a mild wall thickening. Negative for evidence of pneumatosis. There is a large left inguinal hernia extending into the scrotum containing multiple loops of bowel as well as mesenteric vessels. No significant obstruction secondary to the hernia. Currently no evidence of bowel strangulation. PELVIS: Appendix: No findings to suggest acute appendicitis. Bladder: Indeterminate moderate bladder wall thickening. Reproductive: Marked heterogeneous enlargement of the prostate gland indeterminate for malignancy and/or prostatitis. ABDOMEN and PELVIS: Intraperitoneal space: Unremarkable. No free air. No significant fluid collection. Bones/joints: No acute fracture. No dislocation. Soft tissues: See above. Vasculature: Unremarkable. No abdominal aortic aneurysm. Lymph nodes: Mild indeterminate retroperitoneal lymphadenopathy. Significant indeterminate bilateral inguinal lymphadenopathy. IMPRESSION: Biliary ductal dilatation with question of extrahepatic biliary tree wall thickening indeterminate for a distal obstructing lesion, neoplasm or cholangitis. Tiny nonspecific and indeterminate low attenuation foci in the liver parenchyma. Small bowel wall thickening is nonspecific but can be seen with infectious or inflammatory enteritis. Marked enlargement of the prostate gland that is significantly heterogeneous and indeterminate for malignancy and/or prostatitis. Nonspecific bladder wall thickening can be seen with infiltrative neoplastic, inflammatory or infectious etiologies. Large left inguinal hernia without evidence of bowel obstruction or strangulation. Indeterminate lymphadenopathy as above. (3) Thickened small bowel Assessment & Plan: d/c planning outpatient f/u (4) Common bile duct dilation Assessment & Plan: discussed with GI appreciate input labs noted imaging reviewed agree with GI - MRCP with biliary eval The liver and spleen appear homogeneous. Gallbladder is without sludge or stone. There is no signs of ductal dilatation. CBD is 6 mm with no filling defect demonstrated. The pancreas is unremarkable. Adrenals are normal. Large simple cyst of the left kidney noted as seen on prior CT. No hydronephrosis seen bilaterally. There is no signs of bowel distention. No ascites demonstrated. There is no adenopathy noted. There is an enlarged prostate with mass effect on the base of the bladder. Large left inguinal hernia and thinning bowel and fat as seen on prior CT. IMPRESSION: NO SIGN OF ACUTE DISEASE. NO BILIARY DILATATION OR DUCTAL STONE DEMONSTRATED. LARGE LEFT RENAL CYST. ENLARGED PROSTATE WITH MASS EFFECT ON THE BLADDER. LARGE LEFT INGUINAL HERNIA. NO SIGN OF OBSTRUCTION. Adan Cotter Feb 14, 2020 15:01
[2020-02-14 15:48] VITALS: BP 115/90
[2020-02-14 20:00] VITALS: BP 118/88
[2020-02-14] MEDS: Tamsulosin 0.4mg cap ORAL SCH (22:10)
[2020-02-15] VITALS: BP 136/85
[2020-02-15] MEDS: D5NS 1,000 ML IV SCH ×2 (00:21→10:24)
[2020-02-15 04:00] VITALS: BP 132/81
[2020-02-15] MEDS: Heparin 5000 units/ml inj SUBQ SCH ×2 (05:31→13:25)
[2020-02-15 06:35] LABS: BASOPHILS % (AUTO) 0.9 % (0.0-2.0); EOSINOPHILS % (AUTO) 5.6 % (0.0-3.0); HEMATOCRIT 34.4 % (42.0-52.0); HEMOGLOBIN 11.1 G/DL (14.2-18.0); LYMPHOCYTES % (AUTO) 41.3 % (20.0-45.0); MEAN CORPUSCULAR VOLUME 101 FL (80-99); MONOCYTES % (AUTO) 9.9 % (1.0-10.0); NEUTROPHILS % (AUTO) 42.3 % (45.0-75.0); PLATELET COUNT 201 K/UL (150-450); RED BLOOD COUNT 3.39 M/UL (4.70-6.10); RED CELL DISTRIBUTION WIDTH 12.6 % (11.6-14.8); WHITE BLOOD COUNT 3.8 K/UL (4.8-10.8)
--- NOTE | 2020-02-15 06:47 | Hematology/Onc Progress Note ---
Assessment/Plan Assessment/Plan A/R # Elevated psa on admission approx 8.3, with a left Inguinal hernia --> likely nonspecific, would expect much larger >20 value if prostate ca --> will recommend urology eval with psa repeat in 6 months --> uro eval prn # Anemia likely of chronic disease, with underlying HIV --> meds noted, stated haart, per id --> hgb trend 11-->11 --> anemia panel baseline ordered # Leukopenia also likely infection related --> hiv++ --> hep panel --> wbc trend 4.2 # Borderline biliary dilation / thickening with normal LFT --> as per gi care # Ill defined small bowel changes without associated symptoms, ? significance --> mrcp/mre of small bowel --> per surg eval --> per colo with gi as needed # Dvt ppx with heparin sq Appreciate consultation and dw Rn Subjective Constitutional: Denies: no symptoms, chills, fever, malaise, weakness, other HEENT: Denies: no symptoms, eye pain, blurred vision, tearing, double vision, ear pain, ear discharge, nose pain, nose congestion, throat pain, throat swelling, mouth pain, mouth swelling, other Cardiovascular: Denies: no symptoms, chest pain, edema, irregular heart rate, lightheadedness, palpitations, syncope, other Respiratory: Denies: no symptoms, cough, shortness of breath, SOB with excertion, SOB at rest, sputum, wheezing, other Gastrointestinal/Abdominal: Denies: no symptoms, abdomen distended, abdominal pain, black stools, tarry stools, blood in stool, constipated, diarrhea, difficulty swallowing, nausea, poor appetite, poor fluid intake, rectal bleeding , vomiting, other Genitourinary: Denies: no symptoms, burning, discharge, frequency, flank pain, hematuria, incontinence, pain, urgency, other Neurologic/Psychiatric: Denies: no symptoms, anxiety, depressed, emotional problems, headache, numbness, paresthesia, pre-existing deficit, seizure, tingling, tremors, weakness, other Endocrine: Denies: no symptoms, excessive sweating, flushing, intolerance to cold, intolerance to heat, increased hunger, increased thirst, increased urine, unexplained weight gain, unexplained weight loss, other Hematologic/Lymphatic: Denies: no symptoms, anemia, easy bleeding, easy bruising, adenopathy, other Allergies: Coded Allergies: No Known Allergies (Unverified , 02/09/20) All Systems: reviewed and negative except above Subjective 02/12 no events, no bleeding, pending mrcp, no night sweats 02/13 labs noted, seen by uro, recs reviewed, no bleeding, wbc 4.2 02/14 labs pending from the am, no bleeding, passing gas Objective Objective Current Medications Medications (Trade) Dose Ordered Sig/Jimmy Route PRN Reason Start Time Stop Time Status Last Admin Dose Admin Abacavir Sulfate (Ziagen) 600 mg DAILY ORAL 02/10/20 15:00 03/11/20 14:59 02/14/20 08:11 Acetaminophen (Tylenol) 650 mg Q4H PRN ORAL Mild Pain (Pain Scale 1-3) 02/09/20 23:30 03/10/20 23:29 Acetaminophen (Tylenol) 650 mg Q4H PRN ORAL Temp >100.5 02/09/20 23:30 03/10/20 23:29 Al Hydroxide/Mg Hydroxide (Mylanta II) 30 ml Q6H PRN ORAL dyspepsia 02/09/20 23:30 03/10/20 23:29 Bisacodyl (Dulcolax) 10 mg HSPRN PRN RECTAL Constipation 02/09/20 23:30 05/09/20 23:29 Dextrose (Dextrose 50%) 25 ml Q30M PRN IV Hypoglycemia 02/09/20 23:30 05/09/20 23:29 Dextrose (Dextrose 50%) 50 ml Q30M PRN IV Hypoglycemia 02/09/20 23:30 05/09/20 23:29 Dextrose/Sodium Chloride 1,000 ml @ 100 mls/hr Q10H IV 02/10/20 00:24 03/11/20 00:23 02/15/20 00:21 Diphenhydramine HCl (Benadryl) 25 mg Q6H PRN ORAL Itching/Pruritis 02/09/20 23:30 03/10/20 23:29 Docusate Sodium (Colace) 100 mg EVERY 12 HOURS ORAL 02/10/20 09:00 03/11/20 08:59 02/14/20 22:11 Dolutegravir Sodium (Tivicay) 50 mg DAILY ORAL 02/10/20 15:00 05/10/20 14:59 02/14/20 08:11 Doxycycline Monohydrate (Doxycycline Monohydrate) 100 mg EVERY 12 HOURS ORAL 02/13/20 21:00 02/20/20 20:59 02/14/20 22:11 Finasteride (Proscar) 5 mg DAILY ORAL 02/14/20 09:00 05/14/20 08:59 02/14/20 08:10 Gadobutrol (Gadavist) 7.5 mmol NOW PRN IV Radiology Procedure 02/11/20 22:00 02/15/20 21:47 Gadobutrol (Gadavist) 7.5 mmol PRN PRN IV Radiology Procedure 02/12/20 12:45 02/16/20 12:39 Heparin Sodium (Porcine) (Heparin 5000 units/ml) 5,000 units EVERY 8 HOURS SUBQ 02/10/20 06:00 03/26/20 05:59 02/15/20 05:31 Lamivudine (Epivir) 300 mg DAILY ORAL 02/10/20 15:00 03/11/20 14:59 02/14/20 08:11 Lisinopril (ZestriL) 10 mg DAILY ORAL 02/10/20 09:00 03/11/20 08:59 02/14/20 08:10 Lorazepam (Ativan 2mg/ml 1ml) 0.5 mg Q4H PRN IV For Anxiety 02/09/20 23:30 02/16/20 23:29 Magnesium Hydroxide (Mom) 30 ml HSPRN PRN ORAL Constipation 02/09/20 23:30 03/10/20 23:29 Metoclopramide HCl (Reglan) 10 mg Q6H PRN IVP Nausea & Vomiting 02/09/20 23:30 03/10/20 23:29 Morphine Sulfate (Morphine Sulfate) 2 mg Q4H PRN IVP Moderate Pain (Pain Scale 4-6) 02/09/20 23:30 02/16/20 23:29 02/11/20 14:10 Morphine Sulfate (Morphine Sulfate) 4 mg Q4H PRN IVP Severe Pain (Pain Scale 7-10) 02/09/20 23:30 02/16/20 23:29 Ondansetron HCl (Zofran) 4 mg Q6H PRN IVP Nausea & Vomiting 02/09/20 23:30 03/10/20 23:29 Polyethylene Glycol (Miralax) 17 gm HSPRN PRN ORAL Constipation 02/09/20 23:30 03/10/20 23:29 Tamsulosin HCl (Flomax) 0.4 mg BEDTIME ORAL 02/13/20 21:00 03/14/20 20:59 02/14/20 22:10 Temazepam (Restoril) 15 mg HSPRN PRN ORAL Insomnia 02/09/20 23:30 02/16/20 23:29 Thiamine HCl (Vitamin B1) 100 mg DAILY ORAL 02/10/20 09:00 03/11/20 08:59 02/14/20 08:10 Last 24 Hour Vital Signs Date Time Temp Pulse Resp B/P (MAP) Pulse Ox O2 Delivery O2 Flow Rate FiO2 02/15/20 04:00 98.2 92 18 132/81 (98) 95 02/15/20 00:00 98.2 95 20 136/85 (102) 95 02/14/20 21:00 Room Air 02/14/20 20:00 98.3 90 20 118/88 (98) 96 02/14/20 15:48 98.3 93 21 115/90 (98) 98 02/14/20 12:02 98.2 89 22 126/95 (105) 98 02/14/20 09:00 Room Air 02/14/20 08:10 118/92 02/14/20 08:00 97.3 86 21 118/92 (101) 98 02/14/20 04:00 97.8 88 18 141/93 (109) 99 02/14/20 00:00 98.6 79 18 146/57 (86) 99 02/13/20 20:52 Room Air 02/13/20 20:00 97.1 88 19 137/82 (100) 99 02/13/20 16:00 97.5 84 19 135/88 (104) 99 02/13/20 12:00 97.3 82 18 133/81 (98) 92 02/13/20 09:49 134/72 02/13/20 09:00 Room Air 02/13/20 08:00 97.9 89 18 134/72 (92) 96 Intake and Output 02/14/20 02/15/20 19:00 07:00 Intake Total 580 ml 900 ml Output Total 500 ml Balance 80 ml 900 ml Intake Oral 480 ml 200 ml IV Total 100 ml 700 ml Output Urine Total 500 ml # Voids 2 2 Labs Test 02/12/20 08:30 02/12/20 16:50 02/13/20 04:00 02/14/20 05:00 Iron Level 86 ug/dL (50-175) Total Iron Binding Capacity 188 ug/dL (250-450) Percent Iron Saturation 46 % (15-50) Unsaturated Iron Binding 102 ug/dL (112-346) Ferritin 115 NG/ML (8-388) White Blood Count 4.2 K/UL (4.8-10.8) Red Blood Count 3.35 M/UL (4.70-6.10) Hemoglobin 11.0 G/DL (14.2-18.0) Hematocrit 34.5 % (42.0-52.0) Mean Corpuscular Volume 103 FL (80-99) Mean Corpuscular Hemoglobin 32.9 PG (27.0-31.0) Mean Corpuscular Hemoglobin Concent 31.9 G/DL (32.0-36.0) Red Cell Distribution Width 12.7 % (11.6-14.8) Platelet Count 208 K/UL (150-450) Mean Platelet Volume 7.2 FL (6.5-10.1) Neutrophils (%) (Auto) 40.9 % (45.0-75.0) Lymphocytes (%) (Auto) 45.5 % (20.0-45.0) Monocytes (%) (Auto) 7.1 % (1.0-10.0) Eosinophils (%) (Auto) 5.1 % (0.0-3.0) Basophils (%) (Auto) 1.5 % (0.0-2.0) Sodium Level 142 MMOL/L (136-145) Potassium Level 4.0 MMOL/L (3.5-5.1) Chloride Level 108 MMOL/L (98-107) Carbon Dioxide Level 27 MMOL/L (21-32) Anion Gap 7 mmol/L (5-15) Blood Urea Nitrogen 18 mg/dL (7-18) Creatinine 1.2 MG/DL (0.55-1.30) Estimat Glomerular Filtration Rate > 60 mL/min (>60) Glucose Level 91 MG/DL (74-106) Calcium Level 8.5 MG/DL (8.5-10.1) Total Bilirubin 0.2 MG/DL (0.2-1.0) Aspartate Amino Transf (AST/SGOT) 16 U/L (15-37) Alanine Aminotransferase (ALT/SGPT) 20 U/L (12-78) Alkaline Phosphatase 79 U/L (46-116) Total Protein 6.4 G/DL (6.4-8.2) Albumin 3.0 G/DL (3.4-5.0) Globulin 3.4 g/dL Albumin/Globulin Ratio 0.9 (1.0-2.7) Urine Color Pale yellow Urine Appearance Clear Urine pH 6 (4.5-8.0) Urine Specific [place]on 1.015 (1.005-1.035) Urine Protein Negative (NEGATIVE) Urine Glucose (UA) Negative (NEGATIVE) Urine Ketones Negative (NEGATIVE) Urine Blood Negative (NEGATIVE) Urine Nitrite Negative (NEGATIVE) Urine Bilirubin Negative (NEGATIVE) Urine Urobilinogen Normal MG/DL (0.0-1.0) Urine Leukocyte Esterase Negative (NEGATIVE) Urine RBC 0 /HPF (0 - 0) Urine WBC 0 /HPF (0 - 0) Urine Squamous Epithelial Cells None /LPF (NONE/OCC) Urine Bacteria None /HPF (NONE) Test 02/15/20 05:40 Height (Feet): 5 Height (Inches): 10.00 Weight (Pounds): 177 Objective Physical Exam General appearance: alert, cooperative, no distress, appears stated age Head: Normocephalic, without obvious abnormality, atraumatic Lungs: clear to auscultation bilaterally Heart: regular rate and rhythm, S1, S2 normal, no murmur Abdomen: soft, non-tender. Bowel sounds normal. No masses reducible scrotal left inguinal hernia + Extremities: extremities normal, atraumatic, no cyanosis or edema Neurologic: Grossly normal Aftab Jimenez MD Feb 15, 2020 06:47
[2020-02-15 07:14] LABS: ALANINE AMINOTRANSFERASE 20 U/L (12-78); ALBUMIN 2.9 G/DL (3.4-5.0); ALBUMIN/GLOBULIN RATIO 0.8 (1.0-2.7); ALKALINE PHOSPHATASE 84 U/L (46-116); ANION GAP 6 mmol/L (5-15); ASPARTATE AMINO TRANSFERASE 16 U/L (15-37); BILIRUBIN,TOTAL 0.3 MG/DL (0.2-1.0); BLOOD UREA NITROGEN 12 mg/dL (7-18); CALCIUM 8.6 MG/DL (8.5-10.1); CARBON DIOXIDE 28 MMOL/L (21-32); CHLORIDE 106 MMOL/L (98-107); POTASSIUM 3.7 MMOL/L (3.5-5.1); SODIUM 140 MMOL/L (136-145)
[2020-02-15 08:00] VITALS: BP 151/64
--- NOTE | 2020-02-15 08:52 | Urology Progress Note ---
Assessment/Plan Status: stable Assessment/Plan: 1. Significant BPH. 2. Urinary frequency. 3. Rule out neurogenic bladder. 4. Large left inguinal hernia. 5. Large left renal cyst. 6. Possible chronic prostatitis. 7. Possible left hydrocele. 8. Mild elevation of serum PSA. monitor clinically flomax, proscar and abx added recheck PSA later cysto as outpt Subjective Allergies: Coded Allergies: No Known Allergies (Unverified , 02/09/20) Subjective looks comfortable Objective Last 24 Hour Vital Signs Date Time Temp Pulse Resp B/P (MAP) Pulse Ox O2 Delivery O2 Flow Rate FiO2 02/15/20 04:00 98.2 92 18 132/81 (98) 95 02/15/20 00:00 98.2 95 20 136/85 (102) 95 02/14/20 21:00 Room Air 02/14/20 20:00 98.3 90 20 118/88 (98) 96 02/14/20 15:48 98.3 93 21 115/90 (98) 98 02/14/20 12:02 98.2 89 22 126/95 (105) 98 02/14/20 09:00 Room Air Intake and Output 02/14/20 02/15/20 19:00 07:00 Intake Total 580 ml 900 ml Output Total 500 ml Balance 80 ml 900 ml Intake Oral 480 ml 200 ml IV Total 100 ml 700 ml Output Urine Total 500 ml # Voids 2 2 Microbiology Date/Time Source Procedure Growth Status 02/10/20 17:08 Nasopharynx Coronavirus COVID-19 PCR (GUY) - Final Complete 02/09/20 23:50 Rectum - Final NO CARBAPENEM-RESISTANT ENTEROBACTERI... Complete Current Medications Medications (Trade) Dose Ordered Sig/Jimmy Route PRN Reason Start Time Stop Time Status Last Admin Dose Admin Abacavir Sulfate (Ziagen) 600 mg DAILY ORAL 02/10/20 15:00 03/11/20 14:59 02/14/20 08:11 Acetaminophen (Tylenol) 650 mg Q4H PRN ORAL Mild Pain (Pain Scale 1-3) 02/09/20 23:30 03/10/20 23:29 Acetaminophen (Tylenol) 650 mg Q4H PRN ORAL Temp >100.5 02/09/20 23:30 03/10/20 23:29 Al Hydroxide/Mg Hydroxide (Mylanta II) 30 ml Q6H PRN ORAL dyspepsia 02/09/20 23:30 03/10/20 23:29 Bisacodyl (Dulcolax) 10 mg HSPRN PRN RECTAL Constipation 02/09/20 23:30 05/09/20 23:29 Dextrose (Dextrose 50%) 25 ml Q30M PRN IV Hypoglycemia 02/09/20 23:30 05/09/20 23:29 Dextrose (Dextrose 50%) 50 ml Q30M PRN IV Hypoglycemia 02/09/20 23:30 05/09/20 23:29 Dextrose/Sodium Chloride 1,000 ml @ 100 mls/hr Q10H IV 02/10/20 00:24 03/11/20 00:23 02/15/20 00:21 Diphenhydramine HCl (Benadryl) 25 mg Q6H PRN ORAL Itching/Pruritis 02/09/20 23:30 03/10/20 23:29 Docusate Sodium (Colace) 100 mg EVERY 12 HOURS ORAL 02/10/20 09:00 03/11/20 08:59 02/14/20 22:11 Dolutegravir Sodium (Tivicay) 50 mg DAILY ORAL 02/10/20 15:00 05/10/20 14:59 02/14/20 08:11 Doxycycline Monohydrate (Doxycycline Monohydrate) 100 mg EVERY 12 HOURS ORAL 02/13/20 21:00 02/20/20 20:59 02/14/20 22:11 Finasteride (Proscar) 5 mg DAILY ORAL 02/14/20 09:00 05/14/20 08:59 02/14/20 08:10 Gadobutrol (Gadavist) 7.5 mmol NOW PRN IV Radiology Procedure 02/11/20 22:00 02/15/20 21:47 Gadobutrol (Gadavist) 7.5 mmol PRN PRN IV Radiology Procedure 02/12/20 12:45 02/16/20 12:39 Heparin Sodium (Porcine) (Heparin 5000 units/ml) 5,000 units EVERY 8 HOURS SUBQ 02/10/20 06:00 03/26/20 05:59 02/15/20 05:31 Lamivudine (Epivir) 300 mg DAILY ORAL 02/10/20 15:00 03/11/20 14:59 02/14/20 08:11 Lisinopril (ZestriL) 10 mg DAILY ORAL 02/10/20 09:00 03/11/20 08:59 02/14/20 08:10 Lorazepam (Ativan 2mg/ml 1ml) 0.5 mg Q4H PRN IV For Anxiety 02/09/20 23:30 02/16/20 23:29 Magnesium Hydroxide (Mom) 30 ml HSPRN PRN ORAL Constipation 02/09/20 23:30 03/10/20 23:29 Metoclopramide HCl (Reglan) 10 mg Q6H PRN IVP Nausea & Vomiting 02/09/20 23:30 03/10/20 23:29 Morphine Sulfate (Morphine Sulfate) 2 mg Q4H PRN IVP Moderate Pain (Pain Scale 4-6) 02/09/20 23:30 02/16/20 23:29 02/11/20 14:10 Morphine Sulfate (Morphine Sulfate) 4 mg Q4H PRN IVP Severe Pain (Pain Scale 7-10) 02/09/20 23:30 02/16/20 23:29 Ondansetron HCl (Zofran) 4 mg Q6H PRN IVP Nausea & Vomiting 02/09/20 23:30 03/10/20 23:29 Polyethylene Glycol (Miralax) 17 gm HSPRN PRN ORAL Constipation 02/09/20 23:30 03/10/20 23:29 Tamsulosin HCl (Flomax) 0.4 mg BEDTIME ORAL 02/13/20 21:00 03/14/20 20:59 02/14/20 22:10 Temazepam (Restoril) 15 mg HSPRN PRN ORAL Insomnia 02/09/20 23:30 02/16/20 23:29 Thiamine HCl (Vitamin B1) 100 mg DAILY ORAL 02/10/20 09:00 03/11/20 08:59 02/14/20 08:10 Laboratory Tests 02/15/20 05:40: White Blood Count 3.8L, Red Blood Count 3.39L, Hemoglobin 11.1L, Hematocrit 34.4L, Mean Corpuscular Volume 101H, Mean Corpuscular Hemoglobin 32.8H, Mean Corpuscular Hemoglobin Concent 32.3, Red Cell Distribution Width 12.6, Platelet Count 201, Mean Platelet Volume 9.3, Neutrophils (%) (Auto) 42.3L, Lymphocytes ( %) (Auto) 41.3, Monocytes (%) (Auto) 9.9, Eosinophils (%) (Auto) 5.6H, Basophils (%) (Auto) 0.9, Sodium Level 140, Potassium Level 3.7, Chloride Level 106, Carbon Dioxide Level 28, Anion Gap 6, Blood Urea Nitrogen 12, Creatinine 1.0, Estimat Glomerular Filtration Rate > 60, Glucose Level 98, Calcium Level 8.6, Total Bilirubin 0.3, Aspartate Amino Transf (AST/SGOT) 16, Alanine Aminotransferase (ALT/SGPT) 20, Alkaline Phosphatase 84, Total Protein 6.4, Albumin 2.9L, Globulin 3.5, Albumin/Globulin Ratio 0.8L Height (Feet): 5 Height (Inches): 10.00 Weight (Pounds): 177 Objective exam stable Marcus Posey MD Feb 15, 2020 08:52
[2020-02-15] MEDS: Docusate 100mg cap ORAL SCH (09:27)
[2020-02-15] MEDS: Doxycycline Monohydrate 100mg ORAL SCH (09:27)
[2020-02-15] MEDS: Thiamine 100mg tab ORAL SCH (09:28)
[2020-02-15] MEDS: Dolutegravir Sodium 50mg tab ORAL SCH (09:28)
[2020-02-15] MEDS: Lisinopril 10mg tab ORAL SCH (09:29)
[2020-02-15 12:00] VITALS: BP 152/90
--- NOTE | 2020-02-15 12:48 | General Progress Note ---
Assessment/Plan Status: stable Assessment/Plan: Assessment/Plan: Assessment - (L) inguinal hernia - borderline biliary dilation / thickening with normal LFT, ? significance - ill defined small bowel changes without associated symptoms, ? significance - enlarged prostate with elevated PSA Recommendations - check MRCP of biliary tree>> reviewed - general surgery eval of inguinal hernia - eventual / outpatient colonoscopy (has not had one) - check stool OB -urology in put appreciated Subjective Allergies: Coded Allergies: No Known Allergies (Unverified , 02/09/20) Objective Last 24 Hour Vital Signs Date Time Temp Pulse Resp B/P (MAP) Pulse Ox O2 Delivery O2 Flow Rate FiO2 02/15/20 12:00 96.8 94 18 152/90 (110) 99 02/15/20 09:29 151/64 02/15/20 09:00 Room Air 02/15/20 08:00 98.2 95 18 151/64 (93) 98 02/15/20 04:00 98.2 92 18 132/81 (98) 95 02/15/20 00:00 98.2 95 20 136/85 (102) 95 02/14/20 21:00 Room Air 02/14/20 20:00 98.3 90 20 118/88 (98) 96 02/14/20 15:48 98.3 93 21 115/90 (98) 98 Intake and Output 02/14/20 02/15/20 19:00 07:00 Intake Total 580 ml 900 ml Output Total 500 ml Balance 80 ml 900 ml Intake Oral 480 ml 200 ml IV Total 100 ml 700 ml Output Urine Total 500 ml # Voids 2 2 Laboratory Tests 02/15/20 05:40: White Blood Count 3.8L, Red Blood Count 3.39L, Hemoglobin 11.1L, Hematocrit 34.4L, Mean Corpuscular Volume 101H, Mean Corpuscular Hemoglobin 32.8H, Mean Corpuscular Hemoglobin Concent 32.3, Red Cell Distribution Width 12.6, Platelet Count 201, Mean Platelet Volume 9.3, Neutrophils (%) (Auto) 42.3L, Lymphocytes ( %) (Auto) 41.3, Monocytes (%) (Auto) 9.9, Eosinophils (%) (Auto) 5.6H, Basophils (%) (Auto) 0.9, Sodium Level 140, Potassium Level 3.7, Chloride Level 106, Carbon Dioxide Level 28, Anion Gap 6, Blood Urea Nitrogen 12, Creatinine 1.0, Estimat Glomerular Filtration Rate > 60, Glucose Level 98, Calcium Level 8.6, Total Bilirubin 0.3, Aspartate Amino Transf (AST/SGOT) 16, Alanine Aminotransferase (ALT/SGPT) 20, Alkaline Phosphatase 84, Total Protein 6.4, Albumin 2.9L, Globulin 3.5, Albumin/Globulin Ratio 0.8L Height (Feet): 5 Height (Inches): 10.00 Weight (Pounds): 177 General Appearance: no apparent distress EENT: normal ENT inspection Neck: supple Cardiovascular: normal rate Respiratory/Chest: decreased breath sounds Abdomen: normal bowel sounds, non tender, soft Extremities: non-tender Tyler Gallo MD Feb 15, 2020 12:48
--- NOTE | 2020-02-15 14:46 | Surgery Progress Note ---
Surgery Progress Note Subjective Symptoms: improved, tolerating diet, voiding well, passing flatus, BM Objective Last 24 Hour Vital Signs Date Time Temp Pulse Resp B/P (MAP) Pulse Ox O2 Delivery O2 Flow Rate FiO2 02/15/20 12:00 96.8 94 18 152/90 (110) 99 02/15/20 09:29 151/64 02/15/20 09:00 Room Air 02/15/20 08:00 98.2 95 18 151/64 (93) 98 02/15/20 04:00 98.2 92 18 132/81 (98) 95 02/15/20 00:00 98.2 95 20 136/85 (102) 95 02/14/20 21:00 Room Air 02/14/20 20:00 98.3 90 20 118/88 (98) 96 02/14/20 15:48 98.3 93 21 115/90 (98) 98 I&O Intake and Output 02/14/20 02/15/20 19:00 07:00 Intake Total 580 ml 900 ml Output Total 500 ml Balance 80 ml 900 ml Intake Oral 480 ml 200 ml IV Total 100 ml 700 ml Output Urine Total 500 ml # Voids 2 2 Cardiovascular: RSR Respiratory: clear Abdomen: soft, non-tender, present bowel sounds, non-distended Extremities: no edema, no tenderness, no cyanosis Laboratory Tests Test 02/15/20 05:40 White Blood Count 3.8 K/UL (4.8-10.8) L Red Blood Count 3.39 M/UL (4.70-6.10) L Hemoglobin 11.1 G/DL (14.2-18.0) L Hematocrit 34.4 % (42.0-52.0) L Mean Corpuscular Volume 101 FL (80-99) H Mean Corpuscular Hemoglobin 32.8 PG (27.0-31.0) H Mean Corpuscular Hemoglobin Concent 32.3 G/DL (32.0-36.0) Red Cell Distribution Width 12.6 % (11.6-14.8) Platelet Count 201 K/UL (150-450) Mean Platelet Volume 9.3 FL (6.5-10.1) Neutrophils (%) (Auto) 42.3 % (45.0-75.0) L Lymphocytes (%) (Auto) 41.3 % (20.0-45.0) Monocytes (%) (Auto) 9.9 % (1.0-10.0) Eosinophils (%) (Auto) 5.6 % (0.0-3.0) H Basophils (%) (Auto) 0.9 % (0.0-2.0) Sodium Level 140 MMOL/L (136-145) Potassium Level 3.7 MMOL/L (3.5-5.1) Chloride Level 106 MMOL/L (98-107) Carbon Dioxide Level 28 MMOL/L (21-32) Anion Gap 6 mmol/L (5-15) Blood Urea Nitrogen 12 mg/dL (7-18) Creatinine 1.0 MG/DL (0.55-1.30) Estimat Glomerular Filtration Rate > 60 mL/min (>60) Glucose Level 98 MG/DL (74-106) Calcium Level 8.6 MG/DL (8.5-10.1) Total Bilirubin 0.3 MG/DL (0.2-1.0) Aspartate Amino Transf (AST/SGOT) 16 U/L (15-37) Alanine Aminotransferase (ALT/SGPT) 20 U/L (12-78) Alkaline Phosphatase 84 U/L (46-116) Total Protein 6.4 G/DL (6.4-8.2) Albumin 2.9 G/DL (3.4-5.0) L Globulin 3.5 g/dL Albumin/Globulin Ratio 0.8 (1.0-2.7) L Plan Problems: (1) Renal cyst (2) Left inguinal hernia Assessment & Plan: Patient with a large reducible scrotal left inguinal hernia. No signs or symptoms of obstructive symptoms. Not incarcerated not strangulated by any means I was able to easily reduce the hernia at the bedside without complication. Identified findings with the patient discussed at bedside. I strongly recommend patient follow-up immediately upon outpatient with his PCP followed by surgeon within his network for considerations of elective left inguinal hernia repair as it currently still reducible non-complicated. I sized him that there is a potential given the size of this thing will become more symptomatic larger or more complicated in the future and the sooner he gets repaired the better. He expressed understanding and says now that it is bigger he will seek repair. ABDOMEN: Liver: Indeterminate at subcentimeter low attenuation foci in the liver parenchyma. Gallbladder and bile ducts: The gallbladder is contracted. Biliary ductal dilatation with the extrahepatic biliary tree measuring up to 7 mm. There appears to be wall thickening of the common bile duct that is indeterminate for malignancy or infection. No calcified stones. Pancreas: Unremarkable. No mass. No ductal dilation. Spleen: Unremarkable. No splenomegaly. Adrenals: Unremarkable. No mass. Kidneys and ureters: Very large partially exophytic anterior left renal cyst measuring up to 7.6 cm. No evidence of obstructive uropathy. Stomach and bowel: Negative for high-grade lower GI tract obstruction. There are segments of small bowel demonstrating at least a mild wall thickening. Negative for evidence of pneumatosis. There is a large left inguinal hernia extending into the scrotum containing multiple loops of bowel as well as mesenteric vessels. No significant obstruction secondary to the hernia. Currently no evidence of bowel strangulation. PELVIS: Appendix: No findings to suggest acute appendicitis. Bladder: Indeterminate moderate bladder wall thickening. Reproductive: Marked heterogeneous enlargement of the prostate gland indeterminate for malignancy and/or prostatitis. ABDOMEN and PELVIS: Intraperitoneal space: Unremarkable. No free air. No significant fluid collection. Bones/joints: No acute fracture. No dislocation. Soft tissues: See above. Vasculature: Unremarkable. No abdominal aortic aneurysm. Lymph nodes: Mild indeterminate retroperitoneal lymphadenopathy. Significant indeterminate bilateral inguinal lymphadenopathy. IMPRESSION: Biliary ductal dilatation with question of extrahepatic biliary tree wall thickening indeterminate for a distal obstructing lesion, neoplasm or cholangitis. Tiny nonspecific and indeterminate low attenuation foci in the liver parenchyma. Small bowel wall thickening is nonspecific but can be seen with infectious or inflammatory enteritis. Marked enlargement of the prostate gland that is significantly heterogeneous and indeterminate for malignancy and/or prostatitis. Nonspecific bladder wall thickening can be seen with infiltrative neoplastic, inflammatory or infectious etiologies. Large left inguinal hernia without evidence of bowel obstruction or strangulation. Indeterminate lymphadenopathy as above. (3) Thickened small bowel Assessment & Plan: d/c planning outpatient f/u (4) Common bile duct dilation Assessment & Plan: discussed with GI appreciate input labs noted imaging reviewed agree with GI - MRCP with biliary eval The liver and spleen appear homogeneous. Gallbladder is without sludge or stone. There is no signs of ductal dilatation. CBD is 6 mm with no filling defect demonstrated. The pancreas is unremarkable. Adrenals are normal. Large simple cyst of the left kidney noted as seen on prior CT. No hydronephrosis seen bilaterally. There is no signs of bowel distention. No ascites demonstrated. There is no adenopathy noted. There is an enlarged prostate with mass effect on the base of the bladder. Large left inguinal hernia and thinning bowel and fat as seen on prior CT. IMPRESSION: NO SIGN OF ACUTE DISEASE. NO BILIARY DILATATION OR DUCTAL STONE DEMONSTRATED. LARGE LEFT RENAL CYST. ENLARGED PROSTATE WITH MASS EFFECT ON THE BLADDER. LARGE LEFT INGUINAL HERNIA. NO SIGN OF OBSTRUCTION. Adan Cotter Feb 15, 2020 14:46
--- NOTE | 2020-02-15 16:41 | Discharge Summary ---
Discharge Summary Hospital Course Date of Admission Feb 09, 2020 at 21:55 Date of Discharge 02/15/2020 Admitting Diagnosis left inguinal hernia Reason for Hospitalization: Work-up and evaluation by specialist, imaging studies obtained HPI Preston Dorsey is a 59 year old male who was admitted on Feb 09, 2020 at 21:55 for Left Inguinal Hernia Consultations General surgery, gastroenterology, urology Hospital Course 59-year-old male [facility] resident ([facility]) w/ MMP including Hx HIV on ART, HTN , L inguinal hernia who presented to the ED with left testicular pain and increased left inguinal hernia fullness. Pt noted to have several concerning features on CT abd for possible malignancy. With impression as follows: Biliary ductal dilatation with question of extrahepatic biliary tree wall thickening indeterminate for a distal obstructing lesion, neoplasm or cholangitis. Tiny nonspecific and indeterminate low attenuation foci in the liver parenchyma. Small bowel wall thickening is nonspecific but can be seen with infectious or inflammatory enteritis. Marked enlargement of the prostate gland that is significantly heterogeneous and indeterminate for malignancy and/or prostatitis. Nonspecific bladder wall thickening can be seen with infiltrative neoplastic, inflammatory or infectious etiologies. Large left inguinal hernia without evidence of bowel obstruction or strangulation. Indeterminate lymphadenopathy as above. Patient was evaluated by general surgery. Given the patient's hernia was reproducible, nontoxic-appearing, patient was not septic, there was no indication for surgery. Patient was also evaluated gastroenterology for elevated LFTs with an MRCP that was negative. Patient continued to be asymptomatic tolerating food without any nausea, vomiting, or abdominal pain. 8. Patient was evaluated by urology given imaging studies with concern for malignancy and enlarged prostate. 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 Patient was also started on Flomax and Proscar. Patient had no difficulty urinating, and was in stable condition with stable vitals and labs on discharge. While patient came from a [facility] on [facility] he refused to return to the [facility]. Patient is homeless and referred to his long term. Medications were filled at [facility] and provided to him prior to discharge. #Left Testicular pain #Extra hepatic bili duct dilation #Enlarged, heterogeneic Prostate #Bladder wall thickening #Small bowel wall thickening - hold off on abx for now as pt seems non toxic - General surgery consulted: No surgical intervention as hernia is reducible - GI consulted--MRCP and MRE ordered tro further eval delia lesley dilatation (to be done once COVID 19 ruled out: ruled out)-> f/u result: Negative; discussed with surgery and gastroenterology all agree that patient is cleared for discharge - Heme onc consult, Dr Jimenez - PSA mild elevated, f/u CEA, CA 19-9 - Urology Consult: Appreciate recs, continue Flomax and Proscar, follow-up as outpatient - Cont 2g Na diet - Pain control - Supportive care #Dispo -Homeless? Documentation reviewed that shows the patient is homeless and was discharged from [facility] to [facility]. 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 Discussed with RN and consultants named above. I spent a total of more than 36 minutes in discussing case with patient, family members, staff including wrapper caser, nursing, and other specialists involved in the case as above.. Time of note may not reflect time patient was seen. Discharge Medications New Medications: Finasteride (Finasteride) 5 Mg Tablet 5 MG ORAL DAILY for 30 Days, #30 TAB Tamsulosin HCl (Flomax) 0.4 Mg Cap.er.24h 0.4 MG ORAL BEDTIME for 30 Days, #30 CAP Changed Medications: Abacavir/Dolutegravir/Lamivudi (Triumeq 600-50-300 mg Tablet) 1 Each Tablet 1 EACH PO DAILY for hiv for 30 Days, #30 TAB (Medication details modified) Acetaminophen* (Acetaminophen 325MG Tablet*) 325 Mg Tablet 650 MG ORAL Q6H prn pain PRN for Mild Pain (Pain Scale 1-3) for 30 Days, #30 TAB (Changed from: Q6H) Mv-Mn/Iron/Fa/Herbal Cmplx#190 (Vitamin D3 Complete Caplet) 1 Each Tablet 2 EACH PO DAILY for supp for 30 Days, #30 TAB (Medication details modified) Continued Medications: Lisinopril* (Lisinopril*) 10 Mg Tablet 10 MG ORAL DAILY for htn for 30 Days, #30 TAB (This prescription has been renewed) Discontinued Medications: Thiamine Hcl* (Vitamin B-1*) 100 Mg Tablet 100 MG ORAL DAILY for supp, #30 TAB 0 Refills Discharge Condition Upon Discharge: stable Discharge Vital Signs Last Vital Signs Date Time Temp Pulse Resp B/P (MAP) Pulse Ox O2 Delivery O2 Flow Rate FiO2 02/15/20 12:00 96.8 94 18 152/90 (110) 99 02/15/20 09:00 Room Air Discharge Disposition Patient was discharged to Discharge Diagnoses: (1) Left inguinal hernia (2) BPH (benign prostatic hyperplasia) (3) Homelessness (4) Leukopenia (5) Anemia Marjorie Zeng DO Feb 15, 2020 16:41
== END 2020-02-15 17:20 | disposition home or self-care (01) | DRG 254 ==
LOC: EDBD 19:30 → EMR 21:21 → 4E 21:55 → EDBEDREQ 22:16 → 4E 02-10 12:38
DX: K40.30 Unilateral inguinal hernia, with obstruction, without gangrene, not specified as recurrent (principal); N28.1 Cyst of kidney, acquired; K63.9 Disease of intestine, unspecified; N40.0 Benign prostatic hyperplasia without lower urinary tract symptoms; I10 Essential (primary) hypertension; Z59.0 Homelessness; D63.8 Anemia in other chronic diseases classified elsewhere; K83.8 Other specified diseases of biliary tract
CPT/HCPCS: 36415; 74177; 74183; 80048; 80053; 81001; 82378; 82728; 83540; 83550; 83690; 83735; 84153; 84154; 85025; 85610; 85730; 86360; 86592; 86850; 86900; 86901; 87081; 87536; 93005; 99285; A9585